=== PATIENT | male | born 1975 | race Hispanic/Latino ===

== ENCOUNTER 2019-08-02 06:37 | Inpatient (IN) | payer BC ==
[~2019-08-02] VITALS: Ht 170.2 cm; Wt 82.6 kg
[~2019-08-02 06:37] MED LIST changes: -XARELTO20 MG PO
--- OUTSIDE RECORDS SUMMARY | 2019-08-02 06:40 | XMS REPORT | Summary of Care ---
Author Organization Unknown Address Unknown Phone Unavailable Encounter HQ Nancy(BIJAN) [phone] Date(s): 03/11/14 - 03/11/[address] Discharge Diagnosis: chest pain Discharge Disposition: Home Physician Attending: Mamadou Amezcua MD Reason for Visit CHEST PAIN Vital Signs Most recent to 1 2 oldest [Reference Range]: Height 172.72 cm (03/11/14 2:28 PM) Temperature Oral 97.7 DegF [96.4-99.1 DegF] (03/11/14 2:28 PM) Systolic Blood 124 mmHg 137 mmHg Pressure [90-140 (03/11/14 3:07 PM) (03/11/14 2:28 PM) mmHg] Diastolic Blood 78 mmHg 84 mmHg Pressure [60-90 (03/11/14 3:07 PM) (03/11/14 2:28 PM) mmHg] Respiratory Rate 20 BRMIN 18 BRMIN [14-20 BRMIN] (03/11/14 3:07 PM) (03/11/14 2:28 PM) Peripheral Pulse 75 bpm 62 bpm Rate [60-100 bpm] (03/11/14 3:07 PM) (03/11/14 2:28 PM) Weight 86.364 kg (03/11/14 2:28 PM) Body Mass Index 28.95 m2 (03/11/14 2:28 PM) Problem List Condition Effective Dates Status Health Status Informant Hiatal Resolved hernia(Confirmed) HTN - Resolved Hypertension(Confirm ed) Morbid Resolved obesity(Confirmed) CAMILA - Obstructive Resolved sleep apnea(Confirmed) Osteoarthritis(Confi Resolved rmed) Reflux(Confirmed) Resolved Allergies, Adverse Reactions, Alerts Substance Reaction Severity Status NKDA Active Medications aspirin 81 mg tablet, chewable 81 mg, 1 tab, Route: PO, Drug form: CHEWTAB, ONCE, Dosing Weight 86.364, kg, Reina ority: STAT, Start date: 03/11/14 15:07:00, Stop date: 03/11/14 15:07:00 Notes: Take with food. Start Date: 03/11/14 Stop Date: 03/11/14 Status: Completed nitroglycerin 0.4 mg sublingual tablet 0.4 mg=1 tab, SL, Q5Min, Chest pain, # 100 tab, 0 Refill(s) Start Date: 03/11/14 Status: Ordered Saline Flush 0.9% 5 ml, Route: IVP, Drug Form: INJ, Dosing Weight 86.364, kg, PRN, PRN Line Flush, Start date: 03/11/14 15:07:00, Duration: 30 day, Stop date: 04/10/14 15:06:00 Notes: (Same as: BD Posiflush) Start Date: 03/11/14 Stop Date: 03/11/14 Status: Discontinued Results ELECTROLYTES Most recent to 1 oldest [Reference Range]: Sodium Lvl [135-145 142 mEq/L mEq/L] (03/11/14 2:23 PM) Potassium Lvl 4.0 mEq/L [3.5-5.1 mEq/L] (03/11/14 2:23 PM) Chloride Lvl [95-109 109 mEq/L mEq/L] (03/11/14 2:23 PM) CO2 [24-32 mEq/L] 30 mEq/L (03/11/14 2:23 PM) AGAP [10.0-20.0 7.0 mEq/L mEq/L] *LOW* (03/11/14 2:23 PM) CHEM PANEL Most recent to 1 oldest [Reference Range]: Creatinine Lvl 0.9 mg/dL [0.5-1.4 mg/dL] (03/11/14 2:23 PM) eGFR 106 mL/min/1.73m2 1 *NA* (03/11/14 2:23 PM) BUN [7-22 mg/dL] 8 mg/dL (03/11/14 2:23 PM) Glucose Lvl [70-99 115 mg/dL 2 mg/dL] *HI* (03/11/14 2:23 PM) Calcium Lvl 8.5 mg/dL [8.5-10.5 mg/dL] (03/11/14 2:23 PM) 1Result Comment: The eGFR is calculated using the CKD-EPI formula. In most young, healthy individuals the eGFR will be >90 mL/min/1.73m2. The eGFR declines with age. An eGFR of 60-89 may be normal in some populations, particularly the elderly, for whom the CKD-EPI formula has not been extensively validated. Use of the eGFR is not recommended in the following populations: Individuals with unstable creatinine concentrations, including patients and those with serious co-morbid conditions. Patients with extremes in muscle mass or diet. The data above are obtained from the National Kidney Disease Education Program ( NKDEP) which additionally recommends that when the eGFR is used in patients with extremes of body mass index for purposes of drug dosing, the eGFR should be mul tiplied by the estimated BMI. 2Interpretive Data: Adult reference range values reflect the clinical guidelines of the [place] [employer]. CARDIAC ENZYMES Most recent to 1 oldest [Reference Range]: Total CK [12-191 108 unit/L unit/L] (03/11/14 2:23 PM) CK MB [0.5-3.6 0.8 ng/mL ng/mL] (03/11/14 2:23 PM) CK MB Index 0.7 [0.0-2.5] (03/11/14 2:23 PM) Troponin-I <0.015 ng/mL [0.00-0.40 ng/mL] (03/11/14 2:23 PM) HEMATOLOGY Most recent to 1 oldest [Reference Range]: WBC [3.7-10.4 K/CMM] 7.5 K/CMM (03/11/14 2:23 PM) RBC [4.70-6.10 4.14 M/CMM M/CMM] *LOW* (03/11/14 2:23 PM) Hgb [14.0-18.0 g/dL] 13.4 g/dL *LOW* (03/11/14 2:23 PM) Hct [42.0-54.0 %] 39.1 % *LOW* (03/11/14 2:23 PM) MCV [80.0-94.0 fL] 94.4 fL *HI* (03/11/14 2:23 PM) MCH [27.0-31.0 pg] 32.3 pg *HI* (03/11/14 2:23 PM) MCHC [32.0-36.0 34.2 g/dL g/dL] (03/11/14 2:23 PM) RDW [11.5-14.5 %] 14.1 % (03/11/14 2:23 PM) Platelet [133-450 297 K/CMM K/CMM] (03/11/14 2:23 PM) MPV [7.4-10.4 fL] 8.3 fL (03/11/14 2:23 PM) Segs [45.0-75.0 %] 54.9 % (03/11/14 2:23 PM) Lymphocytes 37.4 % [20.0-40.0 %] (03/11/14 2:23 PM) Monocytes [2.0-12.0 5.7 % %] (03/11/14 2:23 PM) Eosinophils [0.0-4.0 0.6 % %] (03/11/14 2:23 PM) Basophils [0.0-1.0 1.4 % %] *HI* (03/11/14 2:23 PM) Segs-Bands # 4.1 K/CMM [1.5-8.1 K/CMM] (03/11/14 2:23 PM) Lymphocytes # 2.8 K/CMM [1.0-5.5 K/CMM] (03/11/14 2:23 PM) Monocytes # [0.0-0.8 0.4 K/CMM K/CMM] (03/11/14 2:23 PM) Eosinophils # 0.0 K/CMM [0.0-0.5 K/CMM] (03/11/14 2:23 PM) Basophils # [0.0-0.2 0.1 K/CMM K/CMM] (03/11/14 2:23 PM) Medications Administered During Your Visit No data available for this section Immunizations No data available for this section Social History Social History Type Response Smoking Status Former smoker, Type: Cigarettes, Exposure to Tobacco Smoke None, Cigarette Smoking Last 365 Days No, Reg Smoking Cessation Counseling No
--- OUTSIDE RECORDS SUMMARY | 2019-08-02 06:40 | XMS REPORT | CCD ---
Author Author Auto Generated Organization [facility] Address Unknown Phone Unavailable Care Team Providers Care Automatic Blocker Name Role Phone Darren Don RP Allergies, Adverse Reactions, Alerts Substance Reaction Status NKDA Active Problem List Condition Effective Dates Status Hiatal hernia Resolved HTN - Hypertension Resolved Morbid obesity Resolved CAMILA - Obstructive sleep apnea Resolved Osteoarthritis Resolved Reflux Resolved Medications Medication Instructions Start Date End Date Status acetaminophen-hydroc 15 mL, Route: PO, Dosing Weight 10/21/2013 10/21/2013 Discontinued odone 300 mg-10 116.818, kg, ONCE, Start date: mg/15 mL oral liquid 10/21/13 11:11:00, Stop date: 10/21/13 11:11:00 docusate sodium 150 100 mg=10 ml, PO, Daily, # 240 ml, 10/23/2013 Ordered mg/15 mL oral liquid 0 Refill(s) Protonix 40 mg, Route: IVP, Drug form: INJ, 10/21/2013 10/23/2013 Discontinued Before Dinner, Start date: 10/21/13 16:30:00, Duration: 30 day, Stop date: 11/19/13 16:30:00For IV push reconstitute with 10 ml 0.9% sodium chloride and push over 2 minutes. (Same as: Protonix) scopolamine 1 patch, Route: TOP, Drug form: 10/21/2013 10/21/2013 Completed ERFILM, PRE OP, Priority: NOW, Start date: 10/21/13 8:46:00, Duration: 1 doses or times, Stop date: 10/22/13 0:00:00Change patch every 72 hours (Same as: Transderm-Scop) hydromorphone 0.5 mg, Route: IVP, Q5Min, Dosing 10/21/2013 10/21/2013 Discontinued Weight 116.818, kg, PRN Pain Score 7-10, Start date: 10/21/13 11:11:00, Duration: 4 doses or times, Stop date: Limited # of times flumazenil 0.2 mg, Route: IVP, PRN, Dosing 10/21/2013 10/21/2013 Discontinued Weight 116.818, kg, PRN Benzodiazepine Reversal, Initial dose, Start date: 10/21/13 11:11:00, Duration: 30 day, Stop date: 11/20/13 11:10:00 metoprolol 1 mg, Route: IVP, Q5Min, Dosing 10/21/2013 10/21/2013 Discontinued Weight 116.818, kg, PRN Other -See Comment, Start date: 10/21/13 11:11:00, Duration: 5 doses or times, Stop date: Limited # of times labetalol 10 mg, Route: IVP, Q5Min, Dosing 10/21/2013 10/21/2013 Discontinued Weight 116.818, kg, PRN Elevated BP, Start date: 10/21/13 11:11:00, Duration: 5 doses or times, Stop date: Limited # of times naloxone 0.04 mg, Route: IVP, Q2MIN, Dosing 10/21/2013 10/21/2013 Discontinued Weight 116.818, kg, PRN Narcotic Reversal, Start date: 10/21/13 11:11:00, Duration: 8 doses or times, Stop date: Limited # of times promethazine 6.25 mg, Route: IVPB, ONCE, Dosing 10/21/2013 10/21/2013 Discontinued Weight 116.818, kg, PRN Nausea & Vomiting, Start date: 10/21/13 11:11:00 OXYcodone 5 mg/5 mL 5 mg, Route: NG, Q4H, Dosing Weight 10/21/2013 10/21/2013 Discontinued oral solution 116.818, kg, PRN Pain Score 4-6, Start date: 10/21/13 11:11:00, Duration: 30 day, Stop date: 11/20/13 11:10:00 ondansetron 4 mg, Route: IVP, ONCE, Dosing 10/21/2013 10/21/2013 Discontinued Weight 116.818, kg, PRN Nausea & Vomiting, Start date: 10/21/13 11:11:00 Fish Oil 1000 mg 0 Refill(s) 10/16/2013 10/23/2013 Discontinued oral capsule acetaminophen-hydroc 15 ml, PO, Q4H, Pain, # 420 mL, 0 10/23/2013 Ordered odone 325 mg-7.5 Refill(s) mg/15 mL oral solution ketorolac 30 mg/mL 30 mg, 1 mL, Route: IV, Drug form: 10/21/2013 10/23/2013 Discontinued injectable solution INJ, Q6H, Dosing Weight 116.818, kg, Start date: 10/21/13 18:00:00, Duration: 4 day, Stop date: 10/25/13 12:00:00(Same as:Toradol) IV bolus must be given >15 seconds. Give IM administration slowly and deeply into the muscle. Not for use > 4 days calcium-vitamin D 1 tab, PO, TID, # 90 tab, 0 10/16/2013 Ordered 250 mg-125 units Refill(s) oral tablet acetaminophen-hydroc 15 mL, Route: PO, Drug Form: SOLN, 10/22/2013 10/23/2013 Discontinued odone 300 mg-10 Dosing Weight 116.818, kg, Q4H, PRN mg/15 mL oral liquid Pain, Start date: 10/22/13 9:32:00, Duration: 30 day, Stop date: 11/21/13 9:31:00Do not exceed 4gm/day of acetaminophen. (Same as: Zolvit) Ofirmev 1,000 mg, 100 mL, Route: IV, Drug 10/21/2013 10/22/2013 Discontinued form: INJ, Q6H, Start date: 10/21/13 18:00:00, Duration: 48 hr, Stop date: 10/25/13 12:00:00Infuse over 15 minutes Do not exceed 4gm/day of acetaminophen Vitamin B12 100 mcg 100 microgram=1 tab, PO, Daily, # 10/16/2013 Ordered oral tablet 90 tab, 0 Refill(s) metoprolol tartrate 100 mg=1 tab, PO, BID, # 180 tab, 0 10/16/2013 10/23/2013 Discontinued 100 mg oral tablet Refill(s) Mefoxin 2 gm, Route: IVPB, Drug form: INJ, 10/21/2013 10/21/2013 Completed PRE OP, Priority: NOW, Start date: 10/21/13 8:45:00, Duration: 1 doses or times, Stop date: 10/22/13 0:00:00(Same As: Mefoxin) Dilaudid 0.2 mg, 0.1 mL, Route: IV, Drug 10/21/2013 10/22/2013 Discontinued form: INJ, Q4H, PRN Pain, Start date: 10/21/13 15:53:00, Duration: 30 day, Stop date: 11/20/13 15:52:00Same as: Dilaudid bupivacaine liposome 20 mL, Route: InFILtration(local), 10/21/2013 10/21/2013 Ordered Drug Form: INJ, ONCE, Start date: 10/21/13 10:10:00, Stop date: 10/21/13 10:10:00(Same as: Exparel) NOT FOR IV use Postoperative analgesia: Infiltration (local): Dose is based on surgical site and volume required to cover the area (in general, the maximum total dose is 266 mg).Bunionectomy: 7 mL into the tissues surrounding the osteotomy and 1 mL into the subcutaneous tissue of the surgical site (total dose=8 mL [106 mg])Hemorrhoidectomy: 30 mL (20 mL vial diluted with 10 mL NS) divided and administered as 6 injections of 5 mL each (total dose=30 mL [266 mg]) Lactated Ringers 1,000 mL, Rate: 100 ml/hr, Infuse 10/21/2013 10/23/2013 Discontinued Injection IV 1,000 over: 10 hr, Route: IV, Dosing mL Weight 116.818 kg, Total Volume: 1,000, Start date: 10/21/13 15:42:00, Stop date: 11/20/13 15:41:00 Zofran 4 mg, 2 mL, Route: IVP, Drug form: 10/21/2013 10/23/2013 Discontinued INJ, Q6H, PRN Nausea & Vomiting, Start date: 10/21/13 15:51:00, Duration: 30 day, Stop date: 11/20/13 15:50:00(Same as: Zofran) heparin 5,000 unit, 1 mL, Route: SUB-Q, 10/22/2013 10/23/2013 Discontinued Drug form: INJ, Q8H, Start date: 10/22/13 8:00:00, Duration: 30 day, Stop date: 11/21/13 0:00:00porcine heparin Mefoxin 2 gm, Route: IVPB, Drug form: INJ, 10/21/2013 10/22/2013 Completed ABXQ8H, Start date: 10/21/13 18:30:00, Duration: 2 doses or times, Stop date: 10/22/13 2:30:00(Same As: Mefoxin) heparin 5,000 unit, 1 mL, Route: SUB-Q, 10/21/2013 10/21/2013 Completed Drug form: INJ, PRE OP, Priority: NOW, Start date: 10/21/13 8:47:00, Duration: 1 doses or times, Stop date: 10/22/13 0:00:00porcine heparin Vital Signs Most recent to oldest [Reference Range]: 1 2 3 Height 170.18 cm (10/21/2013 17:42:00) 170.18 cm (10/15/2013 15:42:00) Temperature Oral [96.4-99.1 DegF] 98.7 DegF (10/23/2013 12:24:00) 98.7 DegF (10/23/2013 08:53:00) 98.1 DegF (10/22/2013 22:50:00) Systolic Blood Pressure [90-140 mmHg] 149 mmHg *HI* (10/23/2013 12:24:00) 138 mmHg (10/23/2013 08:53:00) 139 mmHg (10/22/2013 22:50:00) Diastolic Blood Pressure [60-90 mmHg] 90 mmHg (10/23/2013 12:24:00) 89 mmHg (10/23/2013 08:53:00) 89 mmHg (10/22/2013 22:50:00) Respiratory Rate [14-20 BRMIN] 18 BRMIN (10/23/2013 12:24:00) 18 BRMIN (10/23/2013 08:53:00) 18 BRMIN (10/22/2013 22:50:00) Peripheral Pulse Rate [60-100 bpm] 91 bpm (10/23/2013 12:24:00) 89 bpm (10/23/2013 08:53:00) 70 bpm (10/22/2013 22:50:00) Weight 116.818 kg (10/21/2013 17:42:00) 116.818 kg (10/21/2013 08:02:00) Results URINALYSIS Most recent to oldest [Reference Range]: 1 2 3 UA Turbidity [Clear] Clear (10/15/2013 14:00:00) UA Color [Yellow] Yellow *NA* (10/15/2013 14:00:00) UA pH [5.0-8.0] 6.0 (10/15/2013 14:00:00) UA Spec Grav [<=1.030] 1.016 (10/15/2013 14:00:00) UA Glucose [Negative mg/dL] Negative mg/dL *NA* (10/15/2013 14:00:00) UA Blood [Negative] Negative (10/15/2013 14:00:00) UA Ketones [Negative mg/dL] Negative mg/dL *NA* (10/15/2013 14:00:00) UA Protein [Negative mg/dL] 10 mg/dL *ABN* (10/15/2013 14:00:00) UA Urobilinogen [0.1-1.0 mg/dL] <=1.0 mg/dL *NA* (10/15/2013 14:00:00) UA Bili [Negative] Negative *NA* (10/15/2013 14:00:00) UA Leuk Est [Negative] Negative (10/15/2013 14:00:00) UA Nitrite [Negative] Negative (10/15/2013 14:00:00) UA Sq Epi None Seen *NA* (10/15/2013 14:00:00) UA Mucus [None Seen /LPF] Moderate /LPF *ABN* (10/15/2013 14:00:00) BLOOD BANK RESULTS Most recent to oldest [Reference Range]: 1 2 3 ABO/Rh O POS *Unknown* (10/21/2013 08:35:00) Antibody Scrn Negative (10/21/2013 08:35:00) CHEMISTRY Most recent to oldest [Reference Range]: 1 2 3 Sodium Lvl [135-145 mEq/L] 138 mEq/L (10/23/2013 03:00:00) 138 mEq/L (10/22/2013 03:00:00) 139 mEq/L (10/15/2013 14:00:00) Potassium Lvl [3.5-5.1 mEq/L] 3.9 mEq/L (10/23/2013 03:00:00) 4.3 mEq/L (10/22/2013 03:00:00) 4.4 mEq/L (10/15/2013 14:00:00) Chloride Lvl [95-109 mEq/L] 103 mEq/L (10/23/2013 03:00:00) 103 mEq/L (10/22/2013 03:00:00) 103 mEq/L (10/15/2013 14:00:00) CO2 [24-32 mEq/L] 22 mEq/L *LOW* (10/23/2013 03:00:00) 24 mEq/L (10/22/2013 03:00:00) 26 mEq/L (10/15/2013 14:00:00) AGAP [10.0-20.0 mEq/L] 16.9 mEq/L (10/23/2013 03:00:00) 15.3 mEq/L (10/22/2013 03:00:00) 14.4 mEq/L (10/15/2013 14:00:00) Creatinine Lvl [0.5-1.4 mg/dL] 0.9 mg/dL (10/23/2013 03:00:00) 0.9 mg/dL (10/22/2013 03:00:00) 1.0 mg/dL (10/15/2013 14:00:00) eGFR 107 mL/min/1.73m2 1 *NA* (10/23/2013 03:00:00) 107 mL/min/1.73m2 2 *NA* (10/22/2013 03:00:00) 94 mL/min/1.73m2 3 *NA* (10/15/2013 14:00:00) BUN [7-22 mg/dL] 9 mg/dL (10/23/2013 03:00:00) 10 mg/dL (10/22/2013 03:00:00) 10 mg/dL (10/15/2013 14:00:00) B/C Ratio [6-25] 10 (10/15/2013 14:00:00) Glucose Lvl [70-99 mg/dL] 69 mg/dL 4 *LOW* (10/23/2013 03:00:00) 93 mg/dL 5 (10/22/2013 03:00:00) 89 mg/dL 6 (10/15/2013 14:00:00) Total Protein [6.4-8.4 g/dL] 7.7 g/dL (10/15/2013 14:00:00) Albumin Lvl [3.5-5.0 g/dL] 4.0 g/dL (10/15/2013 14:00:00) Globulin [2.0-4.0 g/dL] 3.7 g/dL (10/15/2013 14:00:00) A/G Ratio [0.7-1.6] 1.1 (10/15/2013 14:00:00) Calcium Lvl [8.5-10.5 mg/dL] 8.3 mg/dL *LOW* (10/23/2013 03:00:00) 8.5 mg/dL (10/22/2013 03:00:00) 9.1 mg/dL (10/15/2013 14:00:00) Phosphorus [2.5-4.5 mg/dL] 2.3 mg/dL *LOW* (10/23/2013 03:00:00) 4.3 mg/dL (10/22/2013 03:00:00) Magnesium Lvl [1.8-2.4 mg/dL] 1.9 mg/dL (10/23/2013 03:00:00) 2.0 mg/dL (10/22/2013 03:00:00) ALT [0-65 unit/L] 150 unit/L *HI* (10/15/2013 14:00:00) AST [0-37 unit/L] 71 unit/L *HI* (10/15/2013 14:00:00) Alk Phos [39-136 unit/L] 97 unit/L (10/15/2013 14:00:00) Bili Total [0.2-1.3 mg/dL] 0.5 mg/dL (10/15/2013 14:00:00) 1Result Comment: The eGFR is calculated using [...] be mul tiplied by the estimated BMI. 2Result Comment: The eGFR is calculated using the [...] be mul tiplied by the estimated BMI. 3Result Comment: The eGFR is calculated using the [...] be mul tiplied by the estimated BMI. 4Interpretive Data: Adult reference range values reflect the clinical guidelines of the [place] [employer]. 5Interpretive Data: Adult reference range values reflect the clinical guidelines of the [place] [employer]. 6Interpretive Data: Adult reference range values reflect the clinical guidelines of the [place] [employer]. HEMATOLOGY Most recent to oldest [Reference Range]: 1 2 3 WBC [3.7-10.4 K/CMM] 8.3 K/CMM (10/23/2013 03:00:00) 9.9 K/CMM (10/22/2013 03:00:00) 7.9 K/CMM (10/15/2013 14:00:00) RBC [4.70-6.10 M/CMM] 4.20 M/CMM *LOW* (10/23/2013 03:00:00) 4.07 M/CMM *LOW* (10/22/2013 03:00:00) 4.37 M/CMM *LOW* (10/15/2013 14:00:00) Hgb [14.0-18.0 g/dL] 13.2 g/dL *LOW* (10/23/2013 03:00:00) 13.3 g/dL *LOW* (10/22/2013 03:00:00) 14.1 g/dL (10/15/2013 14:00:00) Hct [42.0-54.0 %] 39.7 % *LOW* (10/23/2013 03:00:00) 38.2 % *LOW* (10/22/2013 03:00:00) 40.8 % *LOW* (10/15/2013 14:00:00) MCV [80.0-94.0 fL] 94.5 fL *HI* (10/23/2013 03:00:00) 93.9 fL (10/22/2013 03:00:00) 93.3 fL (10/15/2013 14:00:00) MCH [27.0-31.0 pg] 31.3 pg *HI* (10/23/2013 03:00:00) 32.8 pg *HI* (10/22/2013 03:00:00) 32.2 pg *HI* (10/15/2013 14:00:00) MCHC [32.0-36.0 g/dL] 33.1 g/dL (10/23/2013 03:00:00) 35.0 g/dL (10/22/2013 03:00:00) 34.5 g/dL (10/15/2013 14:00:00) RDW [11.5-14.5 %] 12.5 % (10/23/2013 03:00:00) 12.8 % (10/22/2013 03:00:00) 13.0 % (10/15/2013 14:00:00) Platelet [133-450 K/CMM] 330 K/CMM (10/23/2013 03:00:00) 345 K/CMM (10/22/2013 03:00:00) 312 K/CMM (10/15/2013 14:00:00) MPV [7.4-10.4 fL] 8.4 fL (10/23/2013 03:00:00) 8.4 fL (10/22/2013 03:00:00) 8.3 fL (10/15/2013 14:00:00) Segs [45.0-75.0 %] 55.4 % (10/23/2013 03:00:00) 64.6 % (10/22/2013 03:00:00) 47.6 % (10/15/2013 14:00:00) Lymphocytes [20.0-40.0 %] 33.3 % (10/23/2013 03:00:00) 26.1 % (10/22/2013 03:00:00) 38.6 % (10/15/2013 14:00:00) Monocytes [2.0-12.0 %] 10.2 % (10/23/2013 03:00:00) 9.0 % (10/22/2013 03:00:00) 11.3 % (10/15/2013 14:00:00) Eosinophils [0.0-4.0 %] 0.4 % (10/23/2013 03:00:00) 0.1 % (10/22/2013 03:00:00) 1.7 % (10/15/2013 14:00:00) Basophils [0.0-1.0 %] 0.7 % (10/23/2013 03:00:00) 0.2 % (10/22/2013 03:00:00) 0.8 % (10/15/2013 14:00:00) Segs-Bands # [1.5-8.1 K/CMM] 4.6 K/CMM (10/23/2013 03:00:00) 6.4 K/CMM (10/22/2013 03:00:00) 3.8 K/CMM (10/15/2013 14:00:00) Lymphocytes # [1.0-5.5 K/CMM] 2.8 K/CMM (10/23/2013 03:00:00) 2.6 K/CMM (10/22/2013 03:00:00) 3.1 K/CMM (10/15/2013 14:00:00) Monocytes # [0.0-0.8 K/CMM] 0.8 K/CMM (10/23/2013 03:00:00) 0.9 K/CMM *HI* (10/22/2013 03:00:00) 0.9 K/CMM *HI* (10/15/2013 14:00:00) Eosinophils # [0.0-0.5 K/CMM] 0.1 K/CMM (10/15/2013 14:00:00) Basophils # [0.0-0.2 K/CMM] 0.1 K/CMM (10/23/2013 03:00:00) 0.1 K/CMM (10/15/2013 14:00:00) Procedures Procedures Date Related Diagnosis Arthroscopy of knee1 Hernia repair2 [id number]
--- OUTSIDE RECORDS SUMMARY | 2019-08-02 06:40 | XMS REPORT | Summary of Care ---
Author Organization Unknown Address Unknown Phone Unavailable Encounter HQ Maribel_dorina(FIN) [id number] Date(s): 10/28/14 - 10/28/14 [facility] Outpatient Imaging - [place] Discharge Disposition: Home Physician Attending: Darren Don MD Reason for Visit 263.8 - PROTEIN-JIMMY MAL Problem List Condition Effective Dates Status Health Status Informant Hiatal Resolved hernia(Confirmed) HTN - Resolved Hypertension(Confirm ed) Morbid Resolved obesity(Confirmed) CAMILA - Obstructive Resolved sleep apnea(Confirmed) Osteoarthritis(Confi Resolved rmed) Reflux(Confirmed) Resolved Allergies, Adverse Reactions, Alerts Substance Reaction Severity Status NKDA Active Medications No data available for this section Medications Administered During Your Visit No data available for this section Immunizations No data available for this section Social History Social History Type Response Smoking Status Former smoker, Type: Cigarettes, Exposure to Tobacco Smoke None, Cigarette Smoking Last 365 Days No, Reg Smoking Cessation Counseling No
--- OUTSIDE RECORDS SUMMARY | 2019-08-02 06:40 | XMS REPORT | Summary of Care ---
Author Organization Unknown Address Unknown Phone Unavailable Encounter HQ Encntr_dorina(FIN) [id number] Date(s): 05/14/14 - 05/14/14 [facility] Outpatient Imaging - [address] [address] [place] Discharge Disposition: Home Physician Attending: Darren Don MD Reason for Visit 530.11 - REFLUX ESOPHAGI Problem List Condition Effective Dates Status Health [...]
--- OUTSIDE RECORDS SUMMARY | 2019-08-02 06:40 | XMS REPORT | Summary of Care ---
Author Author Dilip Rodriguez Organization Unknown Address Unknown Phone Unavailable Care Team Providers Care Care Worker Name Role Phone GAMAL POMPA N.P. Unavailable Unavailable KAROL Tang, ANIL Unavailable Unavailable ZHANNA Mir.TONIO Leslie Unavailable Unavailable Dilip Rodriguez Unavailable Unavailable BRENTON ZARATE RI, LASHONDA Ramirez Unavailable Unavailable BRENTON Pratt, LASHONDA Unavailable Unavailable Unavailable Unavailable Functional Status Name Dates Details Functional status health issues are not documented Status: Name Dates Details Cognitive status health issues are not documented Status: Problems Name Dates Details Need for influenza vaccination (V04.81, Z23) Status: Active Primary dysthymia (300.4, F34.1) Status: Active Dyslipidemia (272.4, E78.5) Status: Active Conjunctivitis, bacterial (372.39, H10.9) Status: Active Puncture wound, hand (882.0, S61.439A) Status: Active Cellulitis of hand (682.4, L03.119) Status: Active GERD without esophagitis (530.81, K21.9) Status: Active Insomnia (780.52, G47.00) Status: Active Vitamin D deficiency (268.9, E55.9) Status: Active Plantar fasciitis of left foot (728.71, M72.2) Status: Active BMI 29.0-29.9,adult (V85.25, Z68.29) Status: Active Medications Name Dates Details Vitamin B Complex Oral Tablet TAKE 1 TABLET DAILY. ANIL ROBERSON N.P. * Start : 21-Sep-2016 Active Centrum Ultra Mens Oral Tablet TAKE 1 TABLET DAILY. * Refills: 0 KAROL Mir.ANIL Leslie * Start : 21-Sep-2016 Active Pantoprazole Sodium 40 MG Oral Tablet Delayed Release TAKE 1 TABLET BY MOUTH DAILY 1 HOUR BEFORE A MEAL * Quantity: 90 Refills: 1 ZHANNA Mir.Melba., TONIO * Start : 21-Sep-2016 Active Vitamin D (Ergocalciferol) 89048 UNIT Oral Capsule Take 1 capsule two times per week * Quantity: 8 Refills: 3 ALETHA Mir.Anuj, GAMAL * Start : 10-Apr-2018 Active Diclofenac-Misoprostol 75-0.2 MG Oral Tablet Delayed Release TAKE 1 TABLET DAILY in am * Quantity: 14 Refills: 0 ZHANNA N.PWander, TONIO * Start : 13-Aug-2018 Active PredniSONE 10 MG Oral Tablet 1 tab po daily x7 days * Quantity: 7 Refills: 0 ZHANNA N.P., TONIO * Start : 15-Aug-2018 Active Allergies and Adverse Reactions Name Dates Details No Known Drug Allergies (Allergy) Status: Active Procedures Procedure Dates Details Procedures not documented Immunization Name Dates Details Fluzone Quadrivalent 0.5 ML Intramuscular Suspension Lot #: [id number] on: 24-Aug-2016 Td (adult), unspecified formulation Comments: Approx [id number] Family History Name Dates Details Family history of diabetes mellitus (V18.0, Z83.3) Status: Active Family history of hypertension (V17.49, Z82.49) Status: Active Social History Name Dates Details - Status: Name Dates Details Former smoker Vital Signs Date Test Result Details [id number] BP Systolic 106 mm[Hg] Status: Comments: Location: LUE; Position: Sitting BP Diastolic 64 mm[Hg] Status: Comments: Location: E; Position: Sitting Height 67 in Status: Weight 188 lb Status: Body Mass Index Calculated 29.45 kg/m2 Status: Body Surface Area Calculated 1.97 m2 Status: Temperature 98.6 f Status: Comments: Method: Temporal Respiration Rate 16 /min Status: Physical Findings 0 Status: Comments: Alcohol Screen - How many times in the past yr have you had 5 (for M) or 4 (for F) or 4 (for all > 65yrs) or more drinks in a day? Heart Rate 71 /min Status: Results Date Description Value Details [id number] XRAY Foot series 40397 Foot series SEE NOTES Comments: EXAM: XR LEFT FOOT 3 VIEWSDATE: 08/13/2018 11:46 AM CDTINDICATION: - M72.2 Plantar fascial fibromatosisCOMPARISON: NoneTECHNIQUE: AP, lateral and oblique radiographs of the footFINDINGS: No acute fracture or malalignment is identified. Tiny Achillesenthesophyte visualized. No plantar enthesopathy. No radiopaque lesions ormasses seen along the plantar aspect of the foot. No soft tissue abnormality is identified.IMPRESSION: No significant radiographic abnormality.--Read by: Case Obandoictated Date/time: 08/13/18 13:25Electronically Signed by: Case Obando MD 08/13/1813:29FINAL REPORT Plan of Care Name Dates Details Planned Observations Planned Goals not documented Instructions Name Dates Details Instructions not documented Encounters Appointment; ANIL ROBERSON NP Encounter Diagnosis: Problem not documented On: 24-Aug-2016 14:00 Appointment; ANIL ROBERSON NP Encounter Diagnosis: Problem not documented On: 21-Sep-2016 13:15 Appointment; TONIO CHAO NP Encounter Diagnosis: Problem not documented On: 13-Mar-2017 9:45 Appointment; BABAR KWON M.D. Encounter Diagnosis: Problem not documented On: 24-May-2017 9:30 Appointment; TONIO CHAO NP Encounter Diagnosis: Problem not documented On: 03-Oct-2017 13:30 Appointment; MIKE FINNEGAN M.D. Encounter Diagnosis: Problem not documented On: 03-Apr-2018 10:45 Appointment; TONIO CHAO NP Encounter Diagnosis: Problem not documented On: 13-Aug-2018 9:45
--- OUTSIDE RECORDS SUMMARY | 2019-08-02 06:40 | XMS REPORT | Continuity of Care Document ---
Author Author Swifto Address Unknown Phone Unavailable Care Team Providers Care Application Support Consultant Name Role Phone [employer] Unavailable Unavailable Problems Problem Status Onset Date Classification Date Reported Comments Source Discharge Diagnosis: chest pain 03/11/2014 03/14/2014 [facility] CHEST PAIN Active 03/11/2014 [facility] MORBID OBESITY Active 10/06/2013 [facility] Hiatal hernia (disorder) Resolved Problem 10/31/2014 [facility], OP[facility] [place],[facility], [facility] Hypertensive disorder, systemic arterial (disorder) Resolved Problem 10/31/2014 [facility], [facility] [place], [facility] Morbid obesity (disorder) Resolved Problem 10/31/2014 [facility], [facility] [place],[facility], [facility] Obstructive sleep apnea syndrome (disorder) Resolved Problem 10/31/2014 [facility], [facility] [place],[facility], [facility] Osteoarthritis (disorder) Resolved Problem 10/31/2014 [facility], [facility] [place],[facility], [facility] Reflux (finding) Resolved Problem 10/31/2014 [facility], [facility] [place],[facility], [facility] MORBID OBESITY Active [facility] Medications Medication Details Route Status Patient Instructions Ordering Provider Order Date Source Nitroglycerin 0.4 MG Sublingual Tablet 0.4 mg=1 tab, SL, Q5Min, Chest pain, # 100 tab, 0 Refill(s) Active 03/11/2014 [facility] Aspirin 81 MG Chewable Tablet 81 mg, 1 tab, Route: PO, Drug form: CHEWTAB, ONCE, Dosing Weight 86.364, kg, Priority: STAT, Start date: 03/11/14 15:07:00, Stop date: 03/11/14 15:07:00Notes: Take with food. Inactive 03/11/2014 [facility] Saline Flush 0.9% 5 ml, Route: IVP, Drug Form: INJ, Dosing Weight 86.364, kg, PRN, PRN Line Flush, Start date: 03/11/14 15:07:00, Duration: 30 day, Stop date: 04/10/14 15:06:00Notes: (Same as: BD Posiflush) Inactive 03/11/2014 [facility] docusate sodium 150 mg/15 mL oral liquid 100 mg=10 ml, PO, Daily, # 240 ml, 0 Refill(s) Active [facility] 10/23/2013 [facility] acetaminophen-hydrocodone 325 mg-7.5 mg/15 mL oral solution 15 ml, PO, Q4H, Pain, # 420 mL, 0 Refill(s) Active [facility] 10/23/2013 [facility] acetaminophen-hydrocodone 300 mg-10 mg/15 mL oral liquid 15 mL, Route: PO, Drug Form: SOLN, Dosing Weight 116.818, kg, Q4H, PRN Pain, Start date: 10/22/13 9:32:00, Duration: 30 day, Stop date: 11/21/13 9:31:00Do not exceed 4gm/day of acetaminophen. (Same as: Zolvit) No Longer Active [facility] 10/22/2013 [facility] heparin 5,000 unit, 1 mL, Route: SUB-Q, Drug form: INJ, Q8H, Start date: 10/22/13 8:00:00, Duration: 30 day, Stop date: 11/21/13 0:00:00porcine heparin No Longer Active [facility] 10/22/2013 [facility] Mefoxin 2 gm, Route: IVPB, Drug form: INJ, ABXQ8H, Start date: 10/21/13 18:30:00, Duration: 2 doses or times, Stop date: 10/22/13 2:30:00(Same As: Mefoxin) No Longer Active [facility] 10/22/2013 [facility] ketorolac 30 mg/mL injectable solution 30 mg, 1 mL, Route: IV, Drug form: INJ, Q6H, Dosing Weight 116.818, kg, Start date: 10/21/13 18:00:00, Duration: 4 day, Stop date: 10/25/13 12:00:00(Same as:Toradol) IV bolus must be given >15 seconds. Give IM administration slowly and deeply into the muscle. Not for use > 4 days No Longer Active [place] 10/22/2013 [facility] Ofirmev 1,000 mg, 100 mL, Route: IV, Drug form: INJ, Q6H, Start date: 10/21/13 18:00:00, Duration: 48 hr, Stop date: 10/25/13 12:00:00Infuse over 15 minutes Do not exceed 4gm/day of acetaminophen No Longer Active [facility] 10/22/2013 [facility] Protonix 40 mg, Route: IVP, Drug form: INJ, Before Dinner, Start date: 10/21/13 16:30:00, Duration: 30 day, Stop date: 11/19/13 16:30:00For IV push reconstitute with 10 ml 0.9% sodium chloride and push over 2 minutes. (Same as: Protonix) No Longer Active [facility] 10/21/2013 [facility] Dilaudid 0.2 mg, 0.1 mL, Route: IV, Drug form: INJ, Q4H, PRN Pain, Start date: 10/21/13 15:53:00, Duration: 30 day, Stop date: 11/20/13 15:52:00Same as: Dilaudid No Longer Active [facility] 10/21/2013 [facility] Zofran 4 mg, 2 mL, Route: IVP, Drug form: INJ, Q6H, PRN Nausea & Vomiting, Start date: 10/21/13 15:51:00, Duration: 30 day, Stop date: 11/20/13 15:50:00(Same as: Zofran) No Longer Active [facility] 10/21/2013 [facility] Lactated Ringers Injection IV 1,000 mL 1,000 mL, Rate: 100 ml/hr, Infuse over: 10 hr, Route: IV, Dosing Weight 116.818 kg, Total Volume: 1,000, Start date: 10/21/13 15:42:00, Stop date: 11/20/13 15:41:00 No Longer Active [facility] 10/21/2013 [facility] acetaminophen-hydrocodone 300 mg-10 mg/15 mL oral liquid 15 mL, Route: PO, Dosing Weight 116.818, kg, ONCE, Start date: 10/21/13 11:11:00, Stop date: 10/21/13 11:11:00 Inactive [place] 10/21/2013 [facility] hydromorphone 0.5 mg, Route: IVP, Q5Min, Dosing Weight 116.818, kg, PRN Pain Score 7-10, Start date: 10/21/13 11:11:00, Duration: 4 doses or times, Stop date: Limited # of times Inactive [place] 10/21/2013 [facility] flumazenil 0.2 mg, Route: IVP, PRN, Dosing Weight 116.818, kg, PRN Benzodiazepine Reversal, Initial dose, Start date: 10/21/13 11:11:00, Duration: 30 day, Stop date: 11/20/13 11:10:00 Inactive [place] 10/21/2013 [facility] metoprolol 1 mg, Route: IVP, Q5Min, Dosing Weight 116.818, kg, PRN Other -See Comment, Start date: 10/21/13 11:11:00, Duration: 5 doses or times, Stop date: Limited # of times Inactive [place] 10/21/2013 [facility] labetalol 10 mg, Route: IVP, Q5Min, Dosing Weight 116.818, kg, PRN Elevated BP, Start date: 10/21/13 11:11:00, Duration: 5 doses or times, Stop date: Limited # of times Inactive [place] 10/21/2013 [facility] naloxone 0.04 mg, Route: IVP, Q2MIN, Dosing Weight 116.818, kg, PRN Narcotic Reversal, Start date: 10/21/13 11:11:00, Duration: 8 doses or times, Stop date: Limited # of times Inactive [place] 10/21/2013 [facility] promethazine 6.25 mg, Route: IVPB, ONCE, Dosing Weight 116.818, kg, PRN Nausea & Vomiting, Start date: 10/21/13 11:11:00 Inactive [place] 10/21/2013 [facility] OXYcodone 5 mg/5 mL oral solution 5 mg, Route: NG, Q4H, Dosing Weight 116.818, kg, PRN Pain Score 4-6, Start date: 10/21/13 11:11:00, Duration: 30 day, Stop date: 11/20/13 11:10:00 Inactive [place] 10/21/2013 [facility] ondansetron 4 mg, Route: IVP, ONCE, Dosing Weight 116.818, kg, PRN Nausea & Vomiting, Start date: 10/21/13 11:11:00 Inactive [place] 10/21/2013 [facility] bupivacaine liposome 20 mL, Route: InFILtration(local), Drug Form: INJ, ONCE, Start date: 10/21/13 10:10:00, Stop date: 10/21/13 10:10:00(Same as: Exparel) NOT FOR IV use Postoperative analgesia: Infiltration (local): Dose is based on surgical site and volume required to cover the area (in general, the maximum total dose is 266 mg). Bunionectomy: 7 mL into the tissues surrounding the osteotomy and 1 mL into the subcutaneous tissue of the surgical site (total dose=8 mL [106 mg]) Hemorrhoidectomy: 30 mL (20 mL vial diluted with 10 mL NS) divided and administered as 6 injections of 5 mL each (total dose=30 mL [266 mg]) Inactive [place] 10/21/2013 [facility] heparin 5,000 unit, 1 mL, Route: SUB-Q, Drug form: INJ, PRE OP, Priority: NOW, Start date: 10/21/13 8:47:00, Duration: 1 doses or times, Stop date: 10/22/13 0:00:00porcine heparin Inactive [place] 10/21/2013 [facility] scopolamine 1 patch, Route: TOP, Drug form: ERFILM, PRE OP, Priority: NOW, Start date: 10/21/13 8:46:00, Duration: 1 doses or times, Stop date: 10/22/13 0:00:00Change patch every 72 hours (Same as: Transderm-S certified flex endoscope reprocessor) Inactive [place] 10/21/2013 [facility] Mefoxin 2 gm, Route: IVPB, Drug form: INJ, PRE OP, Priority: NOW, Start date: 10/21/13 8:45:00, Duration: 1 doses or times, Stop date: 10/22/13 0:00:00(Same As: Mefoxin) Inactive [place] 10/21/2013 [facility] Fish Oil 1000 mg oral capsule 0 Refill(s) No Longer Active 10/16/2013 [facility] calcium-vitamin D 250 mg-125 units oral tablet 1 tab, PO, TID, # 90 tab, 0 Refill(s) Active 10/16/2013 [facility] Vitamin B12 100 mcg oral tablet 100 microgram=1 tab, PO, Daily, # 90 tab, 0 Refill(s) Active 10/16/2013 [facility] metoprolol tartrate 100 mg oral tablet 100 mg=1 tab, PO, BID, # 180 tab, 0 Refill(s) No Longer Active 10/16/2013 [facility] Allergies, Adverse Reactions, Alerts No Known Medication Allergies Immunizations No Data Provided for This Section Results Order Name Results Value Reference Range Date Interpretation Comments Source CARDIAC ENZYMES CK MB 0.8 0.5 - 3.6 03/11/2014 [facility] CARDIAC ENZYMES Total CK 108 12 - 191 03/11/2014 [facility] CARDIAC ENZYMES Troponin-I <0.015 ng/mL 0.00 - 0.40 03/11/2014 [facility] CARDIAC ENZYMES CK-MB INDEX 0.7 0.0 - 2.5 03/11/2014 [facility] CHEM PANEL eGFR 106 03/11/2014 <sup>1</sup>Result Comment: The eGFR is calculated using the CKD-EPI formula. In most young, healthy individuals the eGFR will be >90 mL/min/1.73m2. The eGFR declines with age. An eGFR of 60-89 may be normal in some populations, particularly the elderly, for whom the CKD-EPI formula has not been extensively validated. Use of the eGFR is not recommended in the following populations:& lt;br/>
Individuals with unstable creatinine concentrations, including patients and those with serious co-morbid conditions.

Patients with extremes in muscle mass or diet.

The data above are obtained from the National Kidney Disease Education Program (NKDEP) which additionally recommends that when the eGFR is used in patients with extremes of body mass index for purposes of drug dosing, the eGFR should be multiplied by the estimated BMI. [facility] CHEM PANEL AGAP 7.0 10.0 - 20.0 03/11/2014 [facility] CHEM PANEL Calcium Lvl 8.5 8.5 - 10.5 03/11/2014 [facility] CHEM PANEL Chloride Lvl 109 95 - 109 03/11/2014 [facility] CHEM PANEL CO2 30 24 - 32 03/11/2014 [facility] CHEM PANEL Creatinine Lvl 0.9 0.5 - 1.4 03/11/2014 [facility] CHEM PANEL Sodium Lvl 142 135 - 145 03/11/2014 [facility] CHEM PANEL Potassium Lvl 4.0 3.5 - 5.1 03/11/2014 [facility] CHEM PANEL Glucose Lvl 115 70 - 99 03/11/2014 <sup>2</sup>Interpretive Data: Adult reference range values reflect the clinical guidelines
of the [place] [employer]. [facility] CHEM PANEL BUN 8 7 - 22 03/11/2014 [facility] HEMATOLOGY Platelet 297 133 - 450 03/11/2014 [facility] HEMATOLOGY MPV 8.3 7.4 - 10.4 03/11/2014 [facility] HEMATOLOGY Hct 39.1 42.0 - 54.0 03/11/2014 [facility] HEMATOLOGY MCV 94.4 80.0 - 94.0 03/11/2014 [facility] HEMATOLOGY MCH 32.3 27.0 - 31.0 03/11/2014 [facility] HEMATOLOGY Hgb 13.4 14.0 - 18.0 03/11/2014 [facility] HEMATOLOGY RBC 4.14 4.70 - 6.10 03/11/2014 [facility] HEMATOLOGY MCHC 34.2 32.0 - 36.0 03/11/2014 [facility] HEMATOLOGY RDW 14.1 11.5 - 14.5 03/11/2014 [facility] HEMATOLOGY WBC 7.5 3.7 - 10.4 03/11/2014 [facility] HEMATOLOGY Eosinophils # 0.0 0.0 - 0.5 03/11/2014 [facility] HEMATOLOGY Basophils # 0.1 0.0 - 0.2 03/11/2014 [facility] HEMATOLOGY Basophils 1.4 0.0 - 1.0 03/11/2014 [facility] HEMATOLOGY Monocytes # 0.4 0.0 - 0.8 03/11/2014 [facility] HEMATOLOGY Segs-Bands # 4.1 1.5 - 8.1 03/11/2014 [facility] HEMATOLOGY Monocytes 5.7 2.0 - 12.0 03/11/2014 [facility] HEMATOLOGY Eosinophils 0.6 0.0 - 4.0 03/11/2014 [facility] HEMATOLOGY Lymphocytes # 2.8 1.0 - 5.5 03/11/2014 [facility] HEMATOLOGY Segs 54.9 45.0 - 75.0 03/11/2014 [facility] HEMATOLOGY Lymphocytes 37.4 20.0 - 40.0 03/11/2014 [facility] CHEMISTRY Magnesium Lvl 1.9 1.8 - 2.4 10/23/2013 Normal [facility] CHEMISTRY Phosphorus 2.3 2.5 - 4.5 10/23/2013 LOW [facility] CHEMISTRY eGFR 107 10/23/2013 <sup>1</sup>Result Comment: The eGFR is calculated using the CKD-EPI formula. In most young, healthy individuals the eGFR will be >90 mL/min/1.73m2. The eGFR declines with age. An eGFR of 60-89 may be normal in some populations, particularly the elderly, for whom the CKD-EPI formula has not been extensively validated. Use of the eGFR is not recommended in the following populations:& lt;br/>
Individuals with unstable creatinine concentrations, including patients and those with serious co-morbid conditions.

Patients with extremes in muscle mass or diet.

The data above are obtained from the National Kidney Disease Education Program (NKDEP) which additionally recommends that when the eGFR is used in patients with extremes of body mass index for purposes of drug dosing, the eGFR should be multiplied by the estimated BMI. [facility] CHEMISTRY Calcium Lvl 8.3 8.5 - 10.5 10/23/2013 LOW [facility] CHEMISTRY CO2 22 24 - 32 10/23/2013 LOW [facility] CHEMISTRY Chloride Lvl 103 95 - 109 10/23/2013 Normal [facility] CHEMISTRY Potassium Lvl 3.9 3.5 - 5.1 10/23/2013 Normal [facility] CHEMISTRY Sodium Lvl 138 135 - 145 10/23/2013 Normal [facility] CHEMISTRY Creatinine Lvl 0.9 0.5 - 1.4 10/23/2013 Normal [facility] CHEMISTRY BUN 9 7 - 22 10/23/2013 Normal [facility] CHEMISTRY Glucose Lvl 69 70 - 99 10/23/2013 LOW <sup>4</sup>Interpretive Data: Adult reference range values reflect the clinical guidelines
of the [place] [employer]. [facility] CHEMISTRY AGAP 16.9 10.0 - 20.0 10/23/2013 Normal [facility] HEMATOLOGY Platelet 330 133 - 450 10/23/2013 Normal [facility] HEMATOLOGY MPV 8.4 7.4 - 10.4 10/23/2013 Normal [facility] HEMATOLOGY MCHC 33.1 32.0 - 36.0 10/23/2013 Normal [facility] HEMATOLOGY RDW 12.5 11.5 - 14.5 10/23/2013 Normal [facility] HEMATOLOGY MCV 94.5 80.0 - 94.0 10/23/2013 [facility] HEMATOLOGY MCH 31.3 27.0 - 31.0 10/23/2013 [facility] HEMATOLOGY Hgb 13.2 14.0 - 18.0 10/23/2013 LOW [facility] HEMATOLOGY Hct 39.7 42.0 - 54.0 10/23/2013 LOW [facility] HEMATOLOGY RBC X 10x6 4.20 4.70 - 6.10 10/23/2013 LOW [facility] HEMATOLOGY WBC X 10x3 8.3 3.7 - 10.4 10/23/2013 Normal [facility] HEMATOLOGY Basophils # 0.1 0.0 - 0.2 10/23/2013 Normal [facility] HEMATOLOGY Segs-Bands # 4.6 1.5 - 8.1 10/23/2013 Normal [facility] HEMATOLOGY Eosinophils 0.4 0.0 - 4.0 10/23/2013 Normal [facility] HEMATOLOGY Lymphocytes # 2.8 1.0 - 5.5 10/23/2013 Normal [facility] HEMATOLOGY Monocytes # 0.8 0.0 - 0.8 10/23/2013 Normal [facility] HEMATOLOGY Basophils 0.7 0.0 - 1.0 10/23/2013 Normal [facility] HEMATOLOGY Segs 55.4 45.0 - 75.0 10/23/2013 Normal [facility] HEMATOLOGY Monocytes 10.2 2.0 - 12.0 10/23/2013 Normal [facility] HEMATOLOGY Lymphocytes 33.3 20.0 - 40.0 10/23/2013 Normal [facility] CHEMISTRY Phosphorus 4.3 2.5 - 4.5 10/22/2013 Normal [facility] CHEMISTRY Magnesium Lvl 2.0 1.8 - 2.4 10/22/2013 Normal [facility] CHEMISTRY eGFR 107 10/22/2013 <sup>2</sup>Result Comment: The eGFR is calculated using the CKD-EPI formula. In most young, healthy individuals the eGFR will be >90 mL/min/1.73m2. The eGFR declines with age. An eGFR of 60-89 may be normal in some populations, particularly the elderly, for whom the CKD-EPI formula has not been extensively validated. Use of the eGFR is not recommended in the following populations:& lt;br/>
Individuals with unstable creatinine concentrations, including patients and those with serious co-morbid conditions.

Patients with extremes in muscle mass or diet.

The data above are obtained from the National Kidney Disease Education Program (NKDEP) which additionally recommends that when the eGFR is used in patients with extremes of body mass index for purposes of drug dosing, the eGFR should be multiplied by the estimated BMI. [facility] CHEMISTRY Chloride Lvl 103 95 - 109 10/22/2013 Normal [facility] CHEMISTRY BUN 10 7 - 22 10/22/2013 Normal [facility] CHEMISTRY Glucose Lvl 93 70 - 99 10/22/2013 Normal <sup>5</sup>Interpretive Data: Adult reference range values reflect the clinical guidelines
of the [place] [employer]. [facility] CHEMISTRY Sodium Lvl 138 135 - 145 10/22/2013 Normal [facility] CHEMISTRY Potassium Lvl 4.3 3.5 - 5.1 10/22/2013 Normal [facility] CHEMISTRY Creatinine Lvl 0.9 0.5 - 1.4 10/22/2013 Normal [facility] CHEMISTRY Calcium Lvl 8.5 8.5 - 10.5 10/22/2013 Normal [facility] CHEMISTRY CO2 24 24 - 32 10/22/2013 Normal [facility] CHEMISTRY AGAP 15.3 10.0 - 20.0 10/22/2013 Normal [facility] HEMATOLOGY Monocytes # 0.9 0.0 - 0.8 10/22/2013 [place] [facility] HEMATOLOGY Lymphocytes # 2.6 1.0 - 5.5 10/22/2013 Normal [facility] HEMATOLOGY Segs-Bands # 6.4 1.5 - 8.1 10/22/2013 [facility] HEMATOLOGY Basophils 0.2 0.0 - 1.0 10/22/2013 [facility] HEMATOLOGY Eosinophils 0.1 0.0 - 4.0 10/22/2013 [facility] HEMATOLOGY Monocytes 9.0 2.0 - 12.0 10/22/2013 [facility] HEMATOLOGY Lymphocytes 26.1 20.0 - 40.0 10/22/2013 [facility] HEMATOLOGY Segs 64.6 45.0 - 75.0 10/22/2013 [facility] HEMATOLOGY MPV 8.4 7.4 - 10.4 10/22/2013 [facility] HEMATOLOGY Platelet 345 133 - 450 10/22/2013 [facility] HEMATOLOGY RDW 12.8 11.5 - 14.5 10/22/2013 [facility] HEMATOLOGY MCHC 35.0 32.0 - 36.0 10/22/2013 [facility] HEMATOLOGY MCH 32.8 27.0 - 31.0 10/22/2013 [place] [facility] HEMATOLOGY MCV 93.9 80.0 - 94.0 10/22/2013 [facility] HEMATOLOGY Hct 38.2 42.0 - 54.0 10/22/2013 [facility] HEMATOLOGY Hgb 13.3 14.0 - 18.0 10/22/2013 [facility] HEMATOLOGY RBC X 10x6 4.07 4.70 - 6.10 10/22/2013 [facility] HEMATOLOGY WBC X 10x3 9.9 3.7 - 10.4 10/22/2013 [facility] BLOOD BANK RESULTS ABO/Rh O POS 10/21/2013 [facility] BLOOD BANK RESULTS Antibody Scrn Negative (10/21/2013 08:35:00) 10/21/2013 [facility] CHEMISTRY eGFR 94 10/15/2013 <sup>3</sup>Result Comment: The eGFR is calculated using the CKD-EPI formula. In most young, healthy individuals the eGFR will be >90 mL/min/1.73m2. The eGFR declines with age. An eGFR of 60-89 may be normal in some populations, particularly the elderly, for whom the CKD-EPI formula has not been extensively validated. Use of the eGFR is not recommended in the following populations:& lt;br/>
Individuals with unstable creatinine concentrations, including patients and those with serious co-morbid conditions.

Patients with extremes in muscle mass or diet.

The data above are obtained from the National Kidney Disease Education Program (NKDEP) which additionally recommends that when the eGFR is used in patients with extremes of body mass index for purposes of drug dosing, the eGFR should be multiplied by the estimated BMI. [facility] CHEMISTRY ALANINE AMINOTRANSFERASE 150 0 - 65 10/15/2013 [facility] CHEMISTRY Albumin Lvl 4.0 3.5 - 5.0 10/15/2013 Normal [facility] CHEMISTRY Total Protein 7.7 6.4 - 8.4 10/15/2013 Normal [facility] CHEMISTRY ASPARTATE TRANSAMINASE 71 0 - 37 10/15/2013 [facility] CHEMISTRY Sodium Lvl 139 135 - 145 10/15/2013 Normal [facility] CHEMISTRY Creatinine Lvl 1.0 0.5 - 1.4 10/15/2013 Normal [facility] CHEMISTRY BUN 10 7 - 22 10/15/2013 Normal [facility] CHEMISTRY Glucose Lvl 89 70 - 99 10/15/2013 Normal <sup>6</sup>Interpretive Data: Adult reference range values reflect the clinical guidelines
of the [place] [employer]. [facility] CHEMISTRY Alk Phos 97 39 - 136 10/15/2013 Normal [facility] CHEMISTRY Bili Total 0.5 0.2 - 1.3 10/15/2013 Normal [facility] CHEMISTRY CO2 26 24 - 32 10/15/2013 Normal [facility] CHEMISTRY Potassium Lvl 4.4 3.5 - 5.1 10/15/2013 Normal [facility] [facility] CHEMISTRY Calcium Lvl 9.1 8.5 - 10.5 10/15/2013 Normal [facility] CHEMISTRY Chloride Lvl 103 95 - 109 10/15/2013 Normal [facility] CHEMISTRY Globulin 3.7 2.0 - 4.0 10/15/2013 Normal [facility] CHEMISTRY B/C Ratio 10 6 - 25 10/15/2013 Normal [facility] CHEMISTRY AGAP 14.4 10.0 - 20.0 10/15/2013 Normal [facility] CHEMISTRY A/G Ratio 1.1 0.7 - 1.6 10/15/2013 Normal [facility] HEMATOLOGY MPV 8.3 7.4 - 10.4 10/15/2013 Normal [facility] HEMATOLOGY RDW 13.0 11.5 - 14.5 10/15/2013 Normal [facility] HEMATOLOGY MCHC 34.5 32.0 - 36.0 10/15/2013 Normal [facility] HEMATOLOGY Platelet 312 133 - 450 10/15/2013 Normal [facility] HEMATOLOGY WBC X 10x3 7.9 3.7 - 10.4 10/15/2013 Normal [facility] HEMATOLOGY MCV 93.3 80.0 - 94.0 10/15/2013 [facility] HEMATOLOGY MCH 32.2 27.0 - 31.0 10/15/2013 [facility] HEMATOLOGY Hct 40.8 42.0 - 54.0 10/15/2013 LOW [facility] HEMATOLOGY RBC X 10x6 4.37 4.70 - 6.10 10/15/2013 LOW [facility] HEMATOLOGY Hgb 14.1 14.0 - 18.0 10/15/2013 Normal [facility] HEMATOLOGY Basophils # 0.1 0.0 - 0.2 10/15/2013 Normal [facility] HEMATOLOGY Eosinophils # 0.1 0.0 - 0.5 10/15/2013 [facility] HEMATOLOGY Eosinophils 1.7 0.0 - 4.0 10/15/2013 [facility] HEMATOLOGY Segs-Bands # 3.8 1.5 - 8.1 10/15/2013 [facility] HEMATOLOGY Basophils 0.8 0.0 - 1.0 10/15/2013 [facility] HEMATOLOGY Monocytes # 0.9 0.0 - 0.8 10/15/2013 [facility] HEMATOLOGY Lymphocytes # 3.1 1.0 - 5.5 10/15/2013 Normal [facility] HEMATOLOGY Lymphocytes 38.6 20.0 - 40.0 10/15/2013 [facility] HEMATOLOGY Segs 47.6 45.0 - 75.0 10/15/2013 [facility] HEMATOLOGY Monocytes 11.3 2.0 - 12.0 10/15/2013 [facility] URINALYSIS UA Urobilinogen <=1.0 mg/dL 0.1 - 1.0 10/15/2013 [facility] URINALYSIS UA Sq Epi None Seen 10/15/2013 [facility] URINALYSIS UA Nitrite Negative (10/15/2013 14:00:00) Negative 10/15/2013 Normal [facility] URINALYSIS UA Mucus Moderate /LPF None Seen 10/15/2013 ABN [facility] URINALYSIS UA Leuk Est Negative (10/15/2013 14:00:00) Negative 10/15/2013 Normal [facility] URINALYSIS UA Bili Negative *NA* (10/15/2013 14:00:00) Negative 10/15/2013 [facility] URINALYSIS UA Blood Negative (10/15/2013 14:00:00) Negative 10/15/2013 Normal [facility] URINALYSIS UA Turbidity Clear (10/15/2013 14:00:00) Clear 10/15/2013 Normal [facility] URINALYSIS UA Color Yellow *NA* (10/15/2013 14:00:00) Yellow 10/15/2013 [facility] URINALYSIS UA Protein 10 mg/dL Negative 10/15/2013 ABN [facility] URINALYSIS UA pH 6.0 5.0 - 8.0 10/15/2013 Normal [facility] URINALYSIS UA Glucose Negative mg/dL Negative 10/15/2013 [facility] URINALYSIS UA Ketones Negative mg/dL Negative 10/15/2013 [facility] URINALYSIS UA Spec Grav 1.016 <=1.030 10/15/2013 Normal [facility] Pathology Reports No Data Provided for This Section Diagnostic Reports Report Value Date Source Bone Density-Dual Energy Absorptionmetry EXAM: Bone density study, multiple sites; dual photon absorptiometry DATE: 10/28/2014 at 1142 hours. INDICATION: Screening for osteoporosis. TECHNIQUE: Lumbar spine and left hip bone mineral densities were measured using Zeto System. FINDINGS: Lumbar spine: L1-L4 average bone mineral density is 1.111 gm/cm2 with a T score of -0.9. Left hip: The left femoral neck and total hip bone mineral densities are 1.029 and 1.122 gm/cm2 with a T score of -0.3 and 0.1 respectively. IMPRESSION: 1. Borderline normal bone density of the lumbar spine. 2. Normal bone density of the left femoral neck and total left hip. 10/28/2014 [facility] Stomach UGI (barium) Exam: Upper GI swallow exam Reason for Exam: Reflux. Chest pain. Comparison Exam: Chest x-ray 03/11/2014 Discussion: On dye jig operator view, there are no dilated loops of bowel abnormal air-fluid level patterns. The patient is status post Gastric Sleeve surgery in October 2013. Surrounding skeletal structures are unremarkable. Patient ingested barium and air crystals without incident. The esophagus is normal in appearance without evidence for mucosal irregularities or abnormal filling defects. No tertiary contraction waves or hiatal hernia. During the exam, there was no evidence seen for gastroesophageal reflux. The stomach and proximal duodenum are unremarkable in appearance. Fluoro time 1 minute, 48 seconds. Impression: 1. No evidence seen for gastroesophageal reflux. Gastric Sleeve surgery appears unremarkable. 05/14/2014 [facility] Chest 1view EXAM: Portable chest x-ray. HISTORY: Chest pain. TECHNIQUE: Portable frontal view of the chest. FINDINGS: Possible COPD. No appreciable pneumonia, edema or pleural effusion. Heart size normal. SL: 12 03/11/2014 [facility] Consultation Notes No Data Provided for This Section Discharge Summaries No Data Provided for This Section History and Physicals No Data Provided for This Section Vital Signs Vital Sign Value Date Comments Source Systolic (mm Hg) 124 03/11/2014 [facility] Heart Rate 75 03/11/2014 [facility] Respitory Rate 20 03/11/2014 [facility] Diastolic (mm Hg) 78 03/11/2014 [facility] BMI Calculated 28.95 03/11/2014 [facility] Height 172.72 cm 03/11/2014 [facility] Weight 86.364 03/11/2014 [facility] Systolic (mm Hg) 137 03/11/2014 [facility] Diastolic (mm Hg) 84 03/11/2014 [facility] Respitory Rate 18 03/11/2014 [facility] Heart Rate 62 03/11/2014 [facility] Temperature Oral (F) 97.7 F 03/11/2014 [facility] Respitory Rate 18 10/23/2013 [facility] Heart Rate 91 10/23/2013 [facility] Diastolic (mm Hg) 90 10/23/2013 [facility] Systolic (mm Hg) 149 10/23/2013 [facility] Temperature Oral (F) 98.7 F 10/23/2013 [facility] Heart Rate 89 10/23/2013 [facility] Respitory Rate 18 10/23/2013 [facility] Systolic (mm Hg) 138 10/23/2013 [facility] Diastolic (mm Hg) 89 10/23/2013 [facility] Temperature Oral (F) 98.7 F 10/23/2013 [facility] Respitory Rate 18 10/23/2013 [facility] Heart Rate 70 10/23/2013 [facility] Systolic (mm Hg) 139 10/23/2013 [facility] Temperature Oral (F) 98.1 F 10/23/2013 [facility] Diastolic (mm Hg) 89 10/23/2013 [facility] Weight 116.818 10/21/2013 [facility] Height 170.18 cm 10/21/2013 [facility] Weight 116.818 10/21/2013 [facility] Height 170.18 cm 10/15/2013 [facility] Encounters Location Location Details Encounter Type Encounter Number Reason For Visit Attending Provider ADM Date DC Date Status Source [facility] Inpatient [id number] MIKE DON 10/21/2013 10/23/2013 Discharged [facility] [id number] Mamadou Amezcua 03/11/2014 03/11/2014 [facility] [place] [facility] [id number] Mike Don 05/14/2014 05/15/2014 [facility] [place] [facility] [id number] Mike Don 10/28/2014 10/29/2014 [facility] [place] [facility] Procedures Procedure Code Date Perfomer Comments Source Arthroscopy of knee<sup>1</sup> [id number] [facility] Hernia repair<sup>2</sup> [id number] [facility] Assessment and Plan No Data Provided for This Section Plan of Care No Data Provided for This Section Social History Social History Date Source Social History TypeResponse Smoking Status Former smoker, Type: Cigarettes, Exposure to Tobacco Smoke None, Cigarette Smoking Last 365 Days No, Reg Smoking Cessation Counseling No 03/11/2014 [facility] Social History TypeResponse Smoking Status Former smoker, Type: Cigarettes, Exposure to Tobacco Smoke None, Cigarette Smoking Last 365 Days No, Reg Smoking Cessation Counseling No 03/11/2014 [facility] Social History TypeResponse Smoking Status Former smoker, Type: Cigarettes, Exposure to Tobacco Smoke None, Cigarette Smoking Last 365 Days No, Reg Smoking Cessation Counseling No 03/11/2014 [facility] Family History No Data Provided for This Section Advance Directives No Data Provided for This Section Functional Status No Data Provided for This Section
--- OUTSIDE RECORDS SUMMARY | 2019-08-02 06:40 | XMS REPORT ---
Author Author [facility] Address Unknown Phone Unavailable Care Team Providers Care Rental Management Trainee Name Role Phone DR LEONARDO LAU Unavailable Unavailable Problems This patient has no known problems. Allergies, Adverse Reactions, Alerts This patient has no known allergies or adverse reactions. Medications This patient has no known medications. Encounters Start Date/Time End Date/Time Encounter Type Admission Type Attending Clinicians Care Facility Care Department Encounter ID 2019-07-28 06:10:00 2019-07-28 10:10:00 Outpatient [facility] [id number]
--- OUTSIDE RECORDS SUMMARY | 2019-08-02 06:53 | XMS REPORT | Continuity of Care Document ---
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 Name Role Phone [facility] Unavailable Unavailable Problems Problem Status Onset Date Classification Date Reported Comments Source Discharge Diagnosis: chest pain 03/11/2014 03/14/2014 [facility] CHEST PAIN Active 03/11/2014 [facility] MORBID OBESITY Active 10/06/2013 [facility] Hiatal hernia (disorder) Resolved Problem 10/31/2014 [facility], [facility] [place],[facility], [facility] Hypertensive disorder, systemic arterial (disorder) Resolved Problem 10/31/2014 [facility], [facility] [place], [facility] Morbid obesity (disorder) Resolved Problem 10/31/2014 [facility], [facility] [place], [facility] Obstructive sleep apnea syndrome (disorder) Resolved Problem 10/31/2014 [facility], [facility] [place], [facility] Osteoarthritis (disorder) Resolved Problem 10/31/2014 [facility], [facility] [place], [facility] Reflux (finding) Resolved Problem 10/31/2014 [facility], [facility] [place],[facility], [facility] MORBID OBESITY Active [facility] Medications Medication Details Route Status Patient Instructions Ordering Provider Order Date Source Nitroglycerin 0.4 MG Sublingual Tablet 0.4 mg=1 tab, SL, Q5Min, Chest pain, # 100 tab, 0 Refill(s) Active 03/11/2014 [facility] Aspirin 81 MG Chewable Tablet 81 mg, 1 tab, Route: PO, Drug form: CHEWTAB, ONCE, Dosing Weight 86.364, kg, Priority: STAT, Start date: 03/11/14 15:07:00, Stop date: 03/11/14 15:07:00Notes: Take with food. Inactive 03/11/2014 [facility] Saline Flush 0.9% 5 ml, Route: IVP, Drug Form: INJ, Dosing Weight 86.364, kg, PRN, PRN Line Flush, Start date: 03/11/14 15:07:00, Duration: 30 day, Stop date: 04/10/14 15:06:00Notes: (Same as: BD Posiflush) Inactive 03/11/2014 [facility] docusate sodium 150 mg/15 mL oral liquid 100 mg=10 ml, PO, Daily, # 240 ml, 0 Refill(s) Active [facility] 10/23/2013 [facility] acetaminophen-hydrocodone 325 mg-7.5 mg/15 mL oral solution 15 ml, PO, Q4H, Pain, # 420 mL, 0 Refill(s) Active [facility] 10/23/2013 [facility] acetaminophen-hydrocodone 300 mg-10 mg/15 mL oral liquid 15 mL, Route: PO, Drug Form: SOLN, Dosing Weight 116.818, kg, Q4H, PRN Pain, Start date: 10/22/13 9:32:00, Duration: 30 day, Stop date: 11/21/13 9:31:00Do not exceed 4gm/day of acetaminophen. (Same as: Zolvit) No Longer Active [facility] 10/22/2013 [facility] heparin 5,000 unit, 1 mL, Route: SUB-Q, Drug form: INJ, Q8H, Start date: 10/22/13 8:00:00, Duration: 30 day, Stop date: 11/21/13 0:00:00porcine heparin No Longer Active [facility] 10/22/2013 [facility] Mefoxin 2 gm, Route: IVPB, Drug form: INJ, ABXQ8H, Start date: 10/21/13 18:30:00, Duration: 2 doses or times, Stop date: 10/22/13 2:30:00(Same As: Mefoxin) No Longer Active [facility] 10/22/2013 [facility] ketorolac 30 mg/mL injectable solution 30 mg, 1 mL, Route: IV, Drug form: INJ, Q6H, Dosing Weight 116.818, kg, Start date: 10/21/13 18:00:00, Duration: 4 day, Stop date: 10/25/13 12:00:00(Same as:Toradol) IV bolus must be given >15 seconds. Give IM administration slowly and deeply into the muscle. Not for use > 4 days No Longer Active [facility] 10/22/2013 [facility] Ofirmev 1,000 mg, 100 mL, Route: IV, Drug form: INJ, Q6H, Start date: 10/21/13 18:00:00, Duration: 48 hr, Stop date: 10/25/13 12:00:00Infuse over 15 minutes Do not exceed 4gm/day of acetaminophen No Longer Active [facility] 10/22/2013 [facility] Protonix 40 mg, Route: IVP, Drug form: INJ, Before Dinner, Start date: 10/21/13 16:30:00, Duration: 30 day, Stop date: 11/19/13 16:30:00For IV push reconstitute with 10 ml 0.9% sodium chloride and push over 2 minutes. (Same as: Protonix) No Longer Active [facility] 10/21/2013 [facility] Dilaudid 0.2 mg, 0.1 mL, Route: IV, Drug form: INJ, Q4H, PRN Pain, Start date: 10/21/13 15:53:00, Duration: 30 day, Stop date: 11/20/13 15:52:00Same as: Dilaudid No Longer Active [facility] 10/21/2013 [facility] Zofran 4 mg, 2 mL, Route: IVP, Drug form: INJ, Q6H, PRN Nausea & Vomiting, Start date: 10/21/13 15:51:00, Duration: 30 day, Stop date: 11/20/13 15:50:00(Same as: Zofran) No Longer Active [facility] 10/21/2013 [facility] Lactated Ringers Injection IV 1,000 mL 1,000 mL, Rate: 100 ml/hr, Infuse over: 10 hr, Route: IV, Dosing Weight 116.818 kg, Total Volume: 1,000, Start date: 10/21/13 15:42:00, Stop date: 11/20/13 15:41:00 No Longer Active [facility] 10/21/2013 [facility] acetaminophen-hydrocodone 300 mg-10 mg/15 mL oral liquid 15 mL, Route: PO, Dosing Weight 116.818, kg, ONCE, Start date: 10/21/13 11:11:00, Stop date: 10/21/13 11:11:00 Inactive [place] 10/21/2013 [facility] hydromorphone 0.5 mg, Route: IVP, Q5Min, Dosing Weight 116.818, kg, PRN Pain Score 7-10, Start date: 10/21/13 11:11:00, Duration: 4 doses or times, Stop date: Limited # of times Inactive [place] 10/21/2013 [facility] flumazenil 0.2 mg, Route: IVP, PRN, Dosing Weight 116.818, kg, PRN Benzodiazepine Reversal, Initial dose, Start date: 10/21/13 11:11:00, Duration: 30 day, Stop date: 11/20/13 11:10:00 Inactive [place] 10/21/2013 [facility] metoprolol 1 mg, Route: IVP, Q5Min, Dosing Weight 116.818, kg, PRN Other -See Comment, Start date: 10/21/13 11:11:00, Duration: 5 doses or times, Stop date: Limited # of times Inactive [place] 10/21/2013 [facility] labetalol 10 mg, Route: IVP, Q5Min, Dosing Weight 116.818, kg, PRN Elevated BP, Start date: 10/21/13 11:11:00, Duration: 5 doses or times, Stop date: Limited # of times Inactive [place] 10/21/2013 [facility] naloxone 0.04 mg, Route: IVP, Q2MIN, Dosing Weight 116.818, kg, PRN Narcotic Reversal, Start date: 10/21/13 11:11:00, Duration: 8 doses or times, Stop date: Limited # of times Inactive [place] 10/21/2013 [facility] promethazine 6.25 mg, Route: IVPB, ONCE, Dosing Weight 116.818, kg, PRN Nausea & Vomiting, Start date: 10/21/13 11:11:00 Inactive [place] 10/21/2013 [facility] OXYcodone 5 mg/5 mL oral solution 5 mg, Route: NG, Q4H, Dosing Weight 116.818, kg, PRN Pain Score 4-6, Start date: 10/21/13 11:11:00, Duration: 30 day, Stop date: 11/20/13 11:10:00 Inactive [place] 10/21/2013 [facility] ondansetron 4 mg, Route: IVP, ONCE, Dosing Weight 116.818, kg, PRN Nausea & Vomiting, Start date: 10/21/13 11:11:00 Inactive [place] 10/21/2013 [facility] bupivacaine liposome 20 mL, Route: InFILtration(local), Drug [...] each (total dose=30 mL [266 mg]) Inactive [place] 10/21/2013 [facility] heparin 5,000 unit, 1 mL, Route: SUB-Q, Drug form: INJ, PRE OP, Priority: NOW, Start date: 10/21/13 8:47:00, Duration: 1 doses or times, Stop date: 10/22/13 0:00:00porcine heparin Inactive [place] 10/21/2013 [facility] scopolamine 1 patch, Route: TOP, Drug form: ERFILM, PRE OP, Priority: NOW, Start date: 10/21/13 8:46:00, Duration: 1 doses or times, Stop date: 10/22/13 0:00:00Change patch every 72 hours (Same as: Transderm-S copyright manager) Inactive [place] 10/21/2013 [facility] Mefoxin 2 gm, Route: IVPB, Drug form: INJ, PRE OP, Priority: NOW, Start date: 10/21/13 8:45:00, Duration: 1 doses or times, Stop date: 10/22/13 0:00:00(Same As: Mefoxin) Inactive [place] 10/21/2013 [facility] Fish Oil 1000 mg oral capsule 0 Refill(s) No Longer Active 10/16/2013 [facility] calcium-vitamin D 250 mg-125 units oral tablet 1 tab, PO, TID, # 90 tab, 0 Refill(s) Active 10/16/2013 [facility] Vitamin B12 100 mcg oral tablet 100 microgram=1 tab, PO, Daily, # 90 tab, 0 Refill(s) Active 10/16/2013 [facility] metoprolol tartrate 100 mg oral tablet 100 mg=1 tab, PO, BID, # 180 tab, 0 Refill(s) No Longer Active 10/16/2013 [facility] Allergies, Adverse Reactions, Alerts No Known Medication Allergies Immunizations No Data Provided for This Section Results Order Name Results Value Reference Range Date Interpretation Comments Source CARDIAC ENZYMES CK MB 0.8 0.5 - 3.6 03/11/2014 [facility] CARDIAC ENZYMES Total CK 108 12 - 191 03/11/2014 [facility] CARDIAC ENZYMES Troponin-I <0.015 ng/mL 0.00 - 0.40 03/11/2014 [facility] CARDIAC ENZYMES CK-MB INDEX 0.7 0.0 - 2.5 03/11/2014 [facility] CHEM PANEL eGFR 106 03/11/2014 <sup>1</sup>Result [...] should be multiplied by the estimated BMI. [facility] CHEM PANEL AGAP 7.0 10.0 - 20.0 03/11/2014 [facility] CHEM PANEL Calcium Lvl 8.5 8.5 - 10.5 03/11/2014 [facility] CHEM PANEL Chloride Lvl 109 95 - 109 03/11/2014 [facility] CHEM PANEL CO2 30 24 - 32 03/11/2014 [facility] CHEM PANEL Creatinine Lvl 0.9 0.5 - 1.4 03/11/2014 [facility] CHEM PANEL Sodium Lvl 142 135 - 145 03/11/2014 [facility] CHEM PANEL Potassium Lvl 4.0 3.5 - 5.1 03/11/2014 [facility] CHEM PANEL Glucose Lvl 115 70 - 99 03/11/2014 <sup>2</sup>Interpretive Data: Adult reference range values reflect the clinical guidelines
of the [place] [employer]. [facility] CHEM PANEL BUN 8 7 - 22 03/11/2014 [facility] HEMATOLOGY Platelet 297 133 - 450 03/11/2014 [facility] HEMATOLOGY MPV 8.3 7.4 - 10.4 03/11/2014 [facility] HEMATOLOGY Hct 39.1 42.0 - 54.0 03/11/2014 [facility] HEMATOLOGY MCV 94.4 80.0 - 94.0 03/11/2014 [facility] HEMATOLOGY MCH 32.3 27.0 - 31.0 03/11/2014 [facility] HEMATOLOGY Hgb 13.4 14.0 - 18.0 03/11/2014 [facility] HEMATOLOGY RBC 4.14 4.70 - 6.10 03/11/2014 [facility] HEMATOLOGY MCHC 34.2 32.0 - 36.0 03/11/2014 [facility] HEMATOLOGY RDW 14.1 11.5 - 14.5 03/11/2014 [facility] HEMATOLOGY WBC 7.5 3.7 - 10.4 03/11/2014 [facility] HEMATOLOGY Eosinophils # 0.0 0.0 - 0.5 03/11/2014 [facility] HEMATOLOGY Basophils # 0.1 0.0 - 0.2 03/11/2014 [facility] HEMATOLOGY Basophils 1.4 0.0 - 1.0 03/11/2014 [facility] HEMATOLOGY Monocytes # 0.4 0.0 - 0.8 03/11/2014 [facility] HEMATOLOGY Segs-Bands # 4.1 1.5 - 8.1 03/11/2014 [facility] HEMATOLOGY Monocytes 5.7 2.0 - 12.0 03/11/2014 [facility] HEMATOLOGY Eosinophils 0.6 0.0 - 4.0 03/11/2014 [facility] HEMATOLOGY Lymphocytes # 2.8 1.0 - 5.5 03/11/2014 [facility] HEMATOLOGY Segs 54.9 45.0 - 75.0 03/11/2014 [facility] HEMATOLOGY Lymphocytes 37.4 20.0 - 40.0 03/11/2014 [facility] CHEMISTRY Magnesium Lvl 1.9 1.8 - 2.4 10/23/2013 Normal [facility] CHEMISTRY Phosphorus 2.3 2.5 - 4.5 10/23/2013 LOW [facility] CHEMISTRY eGFR 107 10/23/2013 <sup>1</sup>Result Comment: The [...] should be multiplied by the estimated BMI. [facility] CHEMISTRY Calcium Lvl 8.3 8.5 - 10.5 10/23/2013 LOW [facility] CHEMISTRY CO2 22 24 - 32 10/23/2013 LOW [facility] CHEMISTRY Chloride Lvl 103 95 - 109 10/23/2013 Normal [facility] CHEMISTRY Potassium Lvl 3.9 3.5 - 5.1 10/23/2013 Normal [facility] CHEMISTRY Sodium Lvl 138 135 - 145 10/23/2013 Normal [facility] CHEMISTRY Creatinine Lvl 0.9 0.5 - 1.4 10/23/2013 Normal [facility] CHEMISTRY BUN 9 7 - 22 10/23/2013 Normal [facility] CHEMISTRY Glucose Lvl 69 70 - 99 10/23/2013 LOW <sup>4</sup>Interpretive Data: Adult reference range values reflect the clinical guidelines
of the [place] [employer]. [facility] CHEMISTRY AGAP 16.9 10.0 - 20.0 10/23/2013 Normal [facility] HEMATOLOGY Platelet 330 133 - 450 10/23/2013 Normal [facility] HEMATOLOGY MPV 8.4 7.4 - 10.4 10/23/2013 Normal [facility] HEMATOLOGY MCHC 33.1 32.0 - 36.0 10/23/2013 Normal [facility] HEMATOLOGY RDW 12.5 11.5 - 14.5 10/23/2013 Normal [facility] HEMATOLOGY MCV 94.5 80.0 - 94.0 10/23/2013 [facility] HEMATOLOGY MCH 31.3 27.0 - 31.0 10/23/2013 [facility] HEMATOLOGY Hgb 13.2 14.0 - 18.0 10/23/2013 LOW [facility] HEMATOLOGY Hct 39.7 42.0 - 54.0 10/23/2013 LOW [facility] HEMATOLOGY RBC X 10x6 4.20 4.70 - 6.10 10/23/2013 LOW [facility] HEMATOLOGY WBC X 10x3 8.3 3.7 - 10.4 10/23/2013 Normal [facility] HEMATOLOGY Basophils # 0.1 0.0 - 0.2 10/23/2013 Normal [facility] HEMATOLOGY Segs-Bands # 4.6 1.5 - 8.1 10/23/2013 Normal [facility] HEMATOLOGY Eosinophils 0.4 0.0 - 4.0 10/23/2013 Normal [facility] HEMATOLOGY Lymphocytes # 2.8 1.0 - 5.5 10/23/2013 Normal [facility] HEMATOLOGY Monocytes # 0.8 0.0 - 0.8 10/23/2013 Normal [facility] HEMATOLOGY Basophils 0.7 0.0 - 1.0 10/23/2013 Normal [facility] HEMATOLOGY Segs 55.4 45.0 - 75.0 10/23/2013 Normal [facility] HEMATOLOGY Monocytes 10.2 2.0 - 12.0 10/23/2013 Normal [facility] HEMATOLOGY Lymphocytes 33.3 20.0 - 40.0 10/23/2013 Normal [facility] CHEMISTRY Phosphorus 4.3 2.5 - 4.5 10/22/2013 Normal [facility] CHEMISTRY Magnesium Lvl 2.0 1.8 - 2.4 10/22/2013 Normal [facility] CHEMISTRY eGFR 107 10/22/2013 <sup>2</sup>Result Comment: The [...] should be multiplied by the estimated BMI. [facility] CHEMISTRY Chloride Lvl 103 95 - 109 10/22/2013 Normal [facility] CHEMISTRY BUN 10 7 - 22 10/22/2013 Normal [facility] CHEMISTRY Glucose Lvl 93 70 - 99 10/22/2013 Normal <sup>5</sup>Interpretive Data: Adult reference range values reflect the clinical guidelines
of the [place] [employer]. [facility] CHEMISTRY Sodium Lvl 138 135 - 145 10/22/2013 Normal [facility] CHEMISTRY Potassium Lvl 4.3 3.5 - 5.1 10/22/2013 Normal [facility] CHEMISTRY Creatinine Lvl 0.9 0.5 - 1.4 10/22/2013 Normal [facility] CHEMISTRY Calcium Lvl 8.5 8.5 - 10.5 10/22/2013 Normal [facility] CHEMISTRY CO2 24 24 - 32 10/22/2013 Normal [facility] CHEMISTRY AGAP 15.3 10.0 - 20.0 10/22/2013 Normal [facility] HEMATOLOGY Monocytes # 0.9 0.0 - 0.8 10/22/2013 [place] [facility] HEMATOLOGY Lymphocytes # 2.6 1.0 - 5.5 10/22/2013 Normal [facility] HEMATOLOGY Segs-Bands # 6.4 1.5 - 8.1 10/22/2013 [facility] HEMATOLOGY Basophils 0.2 0.0 - 1.0 10/22/2013 [facility] HEMATOLOGY Eosinophils 0.1 0.0 - 4.0 10/22/2013 [facility] HEMATOLOGY Monocytes 9.0 2.0 - 12.0 10/22/2013 [facility] HEMATOLOGY Lymphocytes 26.1 20.0 - 40.0 10/22/2013 [facility] HEMATOLOGY Segs 64.6 45.0 - 75.0 10/22/2013 [facility] HEMATOLOGY MPV 8.4 7.4 - 10.4 10/22/2013 [facility] HEMATOLOGY Platelet 345 133 - 450 10/22/2013 [facility] HEMATOLOGY RDW 12.8 11.5 - 14.5 10/22/2013 [facility] HEMATOLOGY MCHC 35.0 32.0 - 36.0 10/22/2013 [facility] HEMATOLOGY MCH 32.8 27.0 - 31.0 10/22/2013 [facility] HEMATOLOGY MCV 93.9 80.0 - 94.0 10/22/2013 [facility] HEMATOLOGY Hct 38.2 42.0 - 54.0 10/22/2013 [facility] HEMATOLOGY Hgb 13.3 14.0 - 18.0 10/22/2013 [facility] HEMATOLOGY RBC X 10x6 4.07 4.70 - 6.10 10/22/2013 [facility] HEMATOLOGY WBC X 10x3 9.9 3.7 - 10.4 10/22/2013 [facility] BLOOD BANK RESULTS ABO/Rh O POS 10/21/2013 [facility] BLOOD BANK RESULTS Antibody Scrn Negative (10/21/2013 08:35:00) 10/21/2013 [facility] CHEMISTRY eGFR 94 10/15/2013 <sup>3</sup>Result Comment: [...] should be multiplied by the estimated BMI. [facility] CHEMISTRY ALANINE AMINOTRANSFERASE 150 0 - 65 10/15/2013 [facility] CHEMISTRY Albumin Lvl 4.0 3.5 - 5.0 10/15/2013 Normal [facility] CHEMISTRY Total Protein 7.7 6.4 - 8.4 10/15/2013 Normal [facility] CHEMISTRY ASPARTATE TRANSAMINASE 71 0 - 37 10/15/2013 [facility] CHEMISTRY Sodium Lvl 139 135 - 145 10/15/2013 Normal [facility] CHEMISTRY Creatinine Lvl 1.0 0.5 - 1.4 10/15/2013 Normal [facility] CHEMISTRY BUN 10 7 - 22 10/15/2013 Normal [facility] CHEMISTRY Glucose Lvl 89 70 - 99 10/15/2013 Normal <sup>6</sup>Interpretive Data: Adult reference range values reflect the clinical guidelines
of the [place] [employer]. [facility] CHEMISTRY Alk Phos 97 39 - 136 10/15/2013 Normal [facility] CHEMISTRY Bili Total 0.5 0.2 - 1.3 10/15/2013 Normal [facility] CHEMISTRY CO2 26 24 - 32 10/15/2013 Normal [facility] CHEMISTRY Potassium Lvl 4.4 3.5 - 5.1 10/15/2013 Normal [facility] CHEMISTRY Calcium Lvl 9.1 8.5 - 10.5 10/15/2013 Normal [facility] CHEMISTRY Chloride Lvl 103 95 - 109 10/15/2013 Normal [facility] CHEMISTRY Globulin 3.7 2.0 - 4.0 10/15/2013 Normal [facility] CHEMISTRY B/C Ratio 10 6 - 25 10/15/2013 Normal [facility] CHEMISTRY AGAP 14.4 10.0 - 20.0 10/15/2013 Normal [facility] CHEMISTRY A/G Ratio 1.1 0.7 - 1.6 10/15/2013 Normal [facility] HEMATOLOGY MPV 8.3 7.4 - 10.4 10/15/2013 Normal [facility] HEMATOLOGY RDW 13.0 11.5 - 14.5 10/15/2013 Normal [facility] HEMATOLOGY MCHC 34.5 32.0 - 36.0 10/15/2013 Normal [facility] HEMATOLOGY Platelet 312 133 - 450 10/15/2013 Normal [facility] HEMATOLOGY WBC X 10x3 7.9 3.7 - 10.4 10/15/2013 Normal [facility] HEMATOLOGY MCV 93.3 80.0 - 94.0 10/15/2013 [facility] HEMATOLOGY MCH 32.2 27.0 - 31.0 10/15/2013 [facility] HEMATOLOGY Hct 40.8 42.0 - 54.0 10/15/2013 LOW [facility] HEMATOLOGY RBC X 10x6 4.37 4.70 - 6.10 10/15/2013 LOW [facility] HEMATOLOGY Hgb 14.1 14.0 - 18.0 10/15/2013 Normal [facility] HEMATOLOGY Basophils # 0.1 0.0 - 0.2 10/15/2013 Normal [facility] HEMATOLOGY Eosinophils # 0.1 0.0 - 0.5 10/15/2013 [facility] HEMATOLOGY Eosinophils 1.7 0.0 - 4.0 10/15/2013 [facility] HEMATOLOGY Segs-Bands # 3.8 1.5 - 8.1 10/15/2013 [facility] HEMATOLOGY Basophils 0.8 0.0 - 1.0 10/15/2013 [facility] HEMATOLOGY Monocytes # 0.9 0.0 - 0.8 10/15/2013 [facility] HEMATOLOGY Lymphocytes # 3.1 1.0 - 5.5 10/15/2013 Normal [facility] HEMATOLOGY Lymphocytes 38.6 20.0 - 40.0 10/15/2013 [facility] HEMATOLOGY Segs 47.6 45.0 - 75.0 10/15/2013 [facility] HEMATOLOGY Monocytes 11.3 2.0 - 12.0 10/15/2013 [facility] URINALYSIS UA Urobilinogen <=1.0 mg/dL 0.1 - 1.0 10/15/2013 [facility] URINALYSIS UA Sq Epi None Seen 10/15/2013 [facility] URINALYSIS UA Nitrite Negative (10/15/2013 14:00:00) Negative 10/15/2013 Normal [facility] URINALYSIS UA Mucus Moderate /LPF None Seen 10/15/2013 ABN [facility] URINALYSIS UA Leuk Est Negative (10/15/2013 14:00:00) Negative 10/15/2013 Normal [facility] URINALYSIS UA Bili Negative *NA* (10/15/2013 14:00:00) Negative 10/15/2013 [facility] URINALYSIS UA Blood Negative (10/15/2013 14:00:00) Negative 10/15/2013 Normal [facility] URINALYSIS UA Turbidity Clear (10/15/2013 14:00:00) Clear 10/15/2013 Normal [facility] URINALYSIS UA Color Yellow *NA* (10/15/2013 14:00:00) Yellow 10/15/2013 [facility] URINALYSIS UA Protein 10 mg/dL Negative 10/15/2013 ABN [facility] URINALYSIS UA pH 6.0 5.0 - 8.0 10/15/2013 Normal [facility] URINALYSIS UA Glucose Negative mg/dL Negative 10/15/2013 [facility] URINALYSIS UA Ketones Negative mg/dL Negative 10/15/2013 [facility] URINALYSIS UA Spec Grav 1.016 <=1.030 10/15/2013 Normal [facility] Pathology Reports No Data Provided for This Section Diagnostic Reports Report Value Date Source Bone Density-Dual Energy Absorptionmetry EXAM: Bone density study, multiple sites; dual photon absorptiometry DATE: 10/28/2014 at 1142 hours. INDICATION: Screening for osteoporosis. TECHNIQUE: Lumbar spine and left hip bone mineral densities were measured using [employer] System. 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 Heart size normal. SL: 12 03/11/2014 [facility] Consultation Notes No Data Provided for This Section Discharge Summaries No Data Provided for This Section History and Physicals No Data Provided for This Section Vital Signs Vital Sign Value Date Comments Source Systolic (mm Hg) 124 03/11/2014 [facility] Heart Rate 75 03/11/2014 [facility] Respitory Rate 20 03/11/2014 [facility] Diastolic (mm Hg) 78 03/11/2014 [facility] BMI Calculated 28.95 03/11/2014 [facility] Height 172.72 cm 03/11/2014 [facility] Weight 86.364 03/11/2014 [facility] Systolic (mm Hg) 137 03/11/2014 [facility] Diastolic (mm Hg) 84 03/11/2014 [facility] Respitory Rate 18 03/11/2014 [facility] Heart Rate 62 03/11/2014 [facility] Temperature Oral (F) 97.7 F 03/11/2014 [facility] Respitory Rate 18 10/23/2013 [facility] Heart Rate 91 10/23/2013 [facility] Diastolic (mm Hg) 90 10/23/2013 [facility] Systolic (mm Hg) 149 10/23/2013 [facility] Temperature Oral (F) 98.7 F 10/23/2013 [facility] Heart Rate 89 10/23/2013 [facility] Respitory Rate 18 10/23/2013 [facility] Systolic (mm Hg) 138 10/23/2013 [facility] Diastolic (mm Hg) 89 10/23/2013 [facility] Temperature Oral (F) 98.7 F 10/23/2013 [facility] Respitory Rate 18 10/23/2013 [facility] Heart Rate 70 10/23/2013 [facility] Systolic (mm Hg) 139 10/23/2013 [facility] Temperature Oral (F) 98.1 F 10/23/2013 [facility] Diastolic (mm Hg) 89 10/23/2013 [facility] Weight 116.818 10/21/2013 [facility] Height 170.18 cm 10/21/2013 [facility] Weight 116.818 10/21/2013 [facility] Height 170.18 cm 10/15/2013 [facility] Encounters Location Location Details Encounter Type Encounter Number Reason For Visit Attending Provider ADM Date DC Date Status Source [facility] Inpatient [id number] MIKE DON 10/21/2013 10/23/2013 Discharged [facility] [id number] Mamadou Amezcua 03/11/2014 03/11/[address] [facility] [place] [place] Outpatient [facility] [id number] Mike Dno 05/14/2014 05/15/2014 [facility] [id number] Mike Don 10/28/2014 10/29/2014 [facility] Procedures Procedure Code Date Perfomer Comments Source Arthroscopy of knee<sup>1</sup> [id number] [facility] Hernia repair<sup>2</sup> [id number] [facility] Assessment and Plan No Data Provided for This Section Plan of Care No Data Provided for This Section Social History Social History Date Source Social History TypeResponse Smoking Status Former smoker, Type: Cigarettes, Exposure to Tobacco Smoke None, Cigarette Smoking Last 365 Days No, Reg Smoking Cessation Counseling No 03/11/2014 [facility] Social History TypeResponse Smoking Status Former [...]
[2019-08-02 06:55] LABS: BASOPHILS % 0.4 % (0.0-1.0); EOSINOPHILS # (AUTO) 0.1 (0.0-0.4); EOSINOPHILS % 0.6 % (0.0-6.0); HEMATOCRIT 44.5 % (38.2-49.6); HEMOGLOBIN 15.3 g/dL (14.0-18.0); LYMPHOCYTES # (AUTO) 2.7 (1.0-3.2); LYMPHOCYTES % 25.9 % (18.0-39.1); MEAN CORPUSCULAR HEMOGLOBIN 32.3 pg (28-32); MEAN CORPUSCULAR HGB CONC 34.4 g/dL (31-35); MEAN CORPUSCULAR VOLUME 93.9 fL (81-99); MONOCYTES % 9.9 % (4.4-11.3); NEUTROPHILS # (AUTO) 6.5 (2.1-6.9); NEUTROPHILS % 62.8 % (38.7-80.0); PLATELET COUNT 326 x10e3/uL (140-360); RED BLOOD COUNT 4.74 x10e6/uL (4.3-5.7); RED CELL DISTRIBUTION WIDTH 12.1 % (11.7-14.4)
[2019-08-02 07:07] LABS: INR 0.92; PROTHROMBIN TIME 12.8 seconds (11.9-14.5)
[2019-08-02 07:08] LABS: PARTIAL THROMBOPLASTIN TIME 36.9 seconds (23.8-35.5)
[2019-08-02 07:15] LABS: ALANINE AMINOTRANSFERASE 20 IU/L (0-55); ALBUMIN 3.8 g/dL (3.5-5.0); ALBUMIN/GLOBULIN RATIO 1.1 (0.8-2.0); ALKALINE PHOSPHATASE 85 IU/L (40-150); ANION GAP 12.4 mmol/L (8-16); BLOOD UREA NITROGEN 15 mg/dL (7-26); BUN/CREATININE RATIO 13 (6-25); CALCIUM 9.5 mg/dL (8.4-10.2); CARBON DIOXIDE 30 mmol/L (22-29); CHLORIDE 102 mmol/L (98-107); CREATINE KINASE 45 IU/L (30-200); CREATININE, SERUM 1.19 mg/dL (0.72-1.25); EST GLOMERULAR FILTRATION RATE > 60 ML/MIN (60-); GLUCOSE 104 mg/dL (74-118); POTASSIUM 4.4 mmol/L (3.5-5.1); SODIUM 140 mmol/L (136-145)
--- NOTE | 2019-08-02 07:27 | Diagnostic Imaging Report ---
Examination: Single AP view of the chest. COMPARISON: 07/14/2015 INDICATION: Chest pain, shortness of breath DISCUSSION: Lines/tubes: None. Lungs: Lung volumes are low with linear opacities in the bases compatible with subsegmental atelectasis. Pleura: There is no pleural effusion or pneumothorax. Heart and mediastinum: The heart and the mediastinum are unremarkable. Bones and soft tissues: No acute bony abnormalities. Degenerative changes in the thoracic spine. IMPRESSION: 1. Low lung volumes with subsegmental atelectasis in the lung bases. Signed by: Dr. Louis Pa M.D. on 08/02/2019 7:24 AM
[2019-08-02] MEDS ORDERED: SODIUM CHLORIDE 0.9% 1000ML 1,000 ML IV STA (07:52)
[2019-08-02] MEDS: ENOXAPARIN SODIUM INJ 100 MG/ML SYR SC SCH ×2 (08:11→20:20)
--- NOTE | 2019-08-02 09:16 | Diagnostic Imaging Report ---
EXAMINATION: CT of the chest with contrast, PE protocol. TECHNIQUE: Spiral CT images of the chest were performed from the lung apices through the level of the adrenal glands after the IV administration of 100 cc of [id number] Thin section reconstructions were obtained with special concentration on the pulmonary arteries. COMPARISON: Chest radiograph 08/02/2019 CLINICAL HISTORY:Shortness of breath, knee surgery 5 days ago DISCUSSION: Vasculature: Filling defects in the right upper lobe pulmonary artery (series 2 image 39). Similar filling defects are also noted within the medial segmental artery of the right middle lobe (series 2 image 61), as well as multiple segmental pulmonary arteries of the right lower lobe, for example on series 2 image 56, 58, and 64. The pulmonary outflow tract is of normal caliber. No right ventricular dilatation or intraventricular septal bowing. No ectasia or aneurysmal dilatation of the thoracic aorta. Lungs: Linear and groundglass opacities in the lower lobes compatible with subsegmental atelectasis. No consolidation or bronchiectasis. Trachea, mainstem bronchi, and lobar and segmental bronchi are patent. Airways: <The major airways are clear.> Pleura: <There is no evidence of pleural effusion or pneumothorax.> Heart and mediastinum: No axillary, hilar, or mediastinal lymphadenopathy. Abdomen: Visualized portions of the liver, spleen, pancreas, adrenals, and gallbladder are unremarkable. Large nonobstructing left upper pole renal calculus partially visualized. Postsurgical changes of the proximal stomach. Bones and soft tissues: No osseous destructive lesions. Posttraumatic deformity of the right clavicle. Multilevel degenerative disc changes of the thoracic spine. IMPRESSION: Multiple segmental pulmonary emboli involving all 3 lobes of the right lung as described above. No CT evidence of right heart strain. Low lung volumes with subsegmental atelectasis in the dependent lower lobes. Nonobstructing left upper pole renal calculus partially visualized. Findings were discussed by telephone with Dr. Flanagan of the emergency center at 0910 hours on 08/02/2019. Signed by: Dr. Louis Pa M.D. on 08/02/2019 9:12 AM
[2019-08-02] MEDS ORDERED: ONDANSETRON HCL INJ 2MG/ML 2ML 2 MG/ML VIAL IV PRN (09:45)
--- OUTSIDE RECORDS SUMMARY | 2019-08-02 09:59 | XMS REPORT | Continuity of Care Document ---
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 Hiatal hernia (disorder) Resolved Problem 10/31/2014 [facility], [facility] [place],[facility], [facility] Hypertensive disorder, systemic arterial (disorder) Resolved Problem 10/31/2014 [facility], [facility] [place],[facility], [facility] Morbid obesity (disorder) Resolved Problem 10/31/2014 [facility], [facility] [place],[facility] Obstructive sleep apnea syndrome (disorder) Resolved Problem 10/31/2014 [facility], [facility] [place],[facility], [facility] Osteoarthritis (disorder) Resolved Problem 10/31/2014 [facility], [facility] [place],[facility], [facility] Reflux (finding) Resolved Problem 10/31/2014 [facility], [facility] [place],[facility], [facility] MORBID OBESITY Active [facility] Medications Medication Details Route Status Patient Instructions Ordering Provider Order Date Source Nitroglycerin 0.4 MG Sublingual Tablet 0.4 mg=1 tab, SL, Q5Min, Chest pain, # 100 tab, 0 Refill(s) Active 03/11/2014 [facility] Aspirin 81 MG Chewable Tablet 81 mg, 1 tab, Route: PO, Drug form: CHEWTAB, ONCE, Dosing Weight 86.364, kg, Priority: STAT, Start date: 03/11/14 15:07:00, Stop date: 03/11/14 15:07:00Notes: Take with food. Inactive 03/11/2014 [facility] Saline Flush 0.9% 5 ml, Route: IVP, Drug Form: INJ, Dosing Weight 86.364, kg, PRN, PRN Line Flush, Start date: 03/11/14 15:07:00, Duration: 30 day, Stop date: 04/10/14 15:06:00Notes: (Same as: BD Posiflush) Inactive 03/11/2014 [facility] docusate sodium 150 mg/15 mL oral liquid 100 mg=10 ml, PO, Daily, # 240 ml, 0 Refill(s) Active [facility] 10/23/2013 [facility] acetaminophen-hydrocodone 325 mg-7.5 mg/15 mL oral solution 15 ml, PO, Q4H, Pain, # 420 mL, 0 Refill(s) Active [facility] 10/23/2013 [facility] acetaminophen-hydrocodone 300 mg-10 mg/15 mL oral liquid 15 mL, Route: PO, Drug Form: SOLN, Dosing Weight 116.818, kg, Q4H, PRN Pain, Start date: 10/22/13 9:32:00, Duration: 30 day, Stop date: 11/21/13 9:31:00Do not exceed 4gm/day of acetaminophen. (Same as: Zolvit) No Longer Active [facility] 10/22/2013 [facility] heparin 5,000 unit, 1 mL, Route: SUB-Q, Drug form: INJ, Q8H, Start date: 10/22/13 8:00:00, Duration: 30 day, Stop date: 11/21/13 0:00:00porcine heparin No Longer Active [facility] [address] 10/22/2013 [facility] Mefoxin 2 gm, Route: IVPB, Drug form: INJ, ABXQ8H, Start date: 10/21/13 18:30:00, Duration: 2 doses or times, Stop date: 10/22/13 2:30:00(Same As: Mefoxin) No Longer Active [facility] [address] 10/22/2013 [facility] ketorolac 30 mg/mL injectable solution 30 mg, 1 mL, Route: IV, Drug form: INJ, Q6H, Dosing Weight 116.818, kg, Start date: 10/21/13 18:00:00, Duration: 4 day, Stop date: 10/25/13 12:00:00(Same as:Toradol) IV bolus must be given >15 seconds. Give IM administration slowly and deeply into the muscle. Not for use > 4 days No Longer Active [place] 10/22/2013 [facility] Ofirmev 1,000 mg, 100 mL, Route: IV, Drug form: INJ, Q6H, Start date: 10/21/13 18:00:00, Duration: 48 hr, Stop date: 10/25/13 12:00:00Infuse over 15 minutes Do not exceed 4gm/day of acetaminophen No Longer Active [facility] [address] 10/22/2013 [facility] Protonix 40 mg, Route: IVP, Drug form: INJ, Before Dinner, Start date: 10/21/13 16:30:00, Duration: 30 day, Stop date: 11/19/13 16:30:00For IV push reconstitute with 10 ml 0.9% sodium chloride and push over 2 minutes. (Same as: Protonix) No Longer Active [facility] [address] 10/21/2013 [facility] Dilaudid 0.2 mg, 0.1 mL, Route: IV, Drug form: INJ, Q4H, PRN Pain, Start date: 10/21/13 15:53:00, Duration: 30 day, Stop date: 11/20/13 15:52:00Same as: Dilaudid No Longer Active [facility] 10/21/2013 [facility] Zofran 4 mg, 2 mL, Route: IVP, Drug form: INJ, Q6H, PRN Nausea & Vomiting, Start date: 10/21/13 15:51:00, Duration: 30 day, Stop date: 11/20/13 15:50:00(Same as: Zofran) No Longer Active [facility] [address] 10/21/2013 [facility] Lactated Ringers Injection IV 1,000 mL 1,000 mL, Rate: 100 ml/hr, Infuse over: 10 hr, Route: IV, Dosing Weight 116.818 kg, Total Volume: 1,000, Start date: 10/21/13 15:42:00, Stop date: 11/20/13 15:41:00 No Longer Active [facility] 10/21/2013 [facility] acetaminophen-hydrocodone 300 mg-10 mg/15 mL oral liquid 15 mL, Route: PO, Dosing Weight 116.818, kg, ONCE, Start date: 10/21/13 11:11:00, Stop date: 10/21/13 11:11:00 Inactive [place] 10/21/2013 [facility] hydromorphone 0.5 mg, Route: IVP, Q5Min, Dosing Weight 116.818, kg, PRN Pain Score 7-10, Start date: 10/21/13 11:11:00, Duration: 4 doses or times, Stop date: Limited # of times Inactive [place] 10/21/2013 [facility] flumazenil 0.2 mg, Route: IVP, PRN, Dosing Weight 116.818, kg, PRN Benzodiazepine Reversal, Initial dose, Start date: 10/21/13 11:11:00, Duration: 30 day, Stop date: 11/20/13 11:10:00 Inactive [place] 10/21/2013 [facility] metoprolol 1 mg, Route: IVP, Q5Min, Dosing Weight 116.818, kg, PRN Other -See Comment, Start date: 10/21/13 11:11:00, Duration: 5 doses or times, Stop date: Limited # of times Inactive [place] 10/21/2013 [facility] labetalol 10 mg, Route: IVP, Q5Min, Dosing Weight 116.818, kg, PRN Elevated BP, Start date: 10/21/13 11:11:00, Duration: 5 doses or times, Stop date: Limited # of times Inactive [place] 10/21/2013 [facility] naloxone 0.04 mg, Route: IVP, Q2MIN, Dosing Weight 116.818, kg, PRN Narcotic Reversal, Start date: 10/21/13 11:11:00, Duration: 8 doses or times, Stop date: Limited # of times Inactive [place] 10/21/2013 [facility] promethazine 6.25 mg, Route: IVPB, ONCE, Dosing Weight 116.818, kg, PRN Nausea & Vomiting, Start date: 10/21/13 11:11:00 Inactive [place] 10/21/2013 [facility] OXYcodone 5 mg/5 mL oral solution 5 mg, Route: NG, Q4H, Dosing Weight 116.818, kg, PRN Pain Score 4-6, Start date: 10/21/13 11:11:00, Duration: 30 day, Stop date: 11/20/13 11:10:00 Inactive [place] 10/21/2013 [facility] ondansetron 4 mg, Route: IVP, ONCE, Dosing Weight 116.818, kg, PRN Nausea & Vomiting, Start date: 10/21/13 11:11:00 Inactive [place] 10/21/2013 [facility] bupivacaine liposome 20 mL, Route: InFILtration(local), [...] each (total dose=30 mL [266 mg]) Inactive [place] 10/21/2013 [facility] heparin 5,000 unit, 1 mL, Route: SUB-Q, Drug form: INJ, PRE OP, Priority: NOW, Start date: 10/21/13 8:47:00, Duration: 1 doses or times, Stop date: 10/22/13 0:00:00porcine heparin Inactive [place] 10/21/2013 [facility] scopolamine 1 patch, Route: TOP, Drug form: ERFILM, PRE OP, Priority: NOW, Start date: 10/21/13 8:46:00, Duration: 1 doses or times, Stop date: 10/22/13 0:00:00Change patch every 72 hours (Same as: Transderm-S coping machine assembler) Inactive [place] 10/21/2013 [facility] Mefoxin 2 gm, Route: IVPB, Drug form: INJ, PRE OP, Priority: NOW, Start date: 10/21/13 8:45:00, Duration: 1 doses or times, Stop date: 10/22/13 0:00:00(Same As: Mefoxin) Inactive [place] 10/21/2013 [facility] Fish Oil 1000 mg oral capsule 0 Refill(s) No Longer Active 10/16/2013 [facility] calcium-vitamin D 250 mg-125 units oral tablet 1 tab, PO, TID, # 90 tab, 0 Refill(s) Active 10/16/2013 [facility] Vitamin B12 100 mcg oral tablet 100 microgram=1 tab, PO, Daily, # 90 tab, 0 Refill(s) Active 10/16/2013 [facility] metoprolol tartrate 100 mg oral tablet 100 mg=1 tab, PO, BID, # 180 tab, 0 Refill(s) No Longer Active 10/16/2013 [facility] Allergies, Adverse Reactions, Alerts No Known Medication Allergies Immunizations No Data Provided for This Section Results Order Name Results Value Reference Range Date Interpretation Comments Source CARDIAC ENZYMES CK MB 0.8 0.5 - 3.6 03/11/2014 [facility] CARDIAC ENZYMES Total CK 108 12 - 191 03/11/2014 [facility] CARDIAC ENZYMES Troponin-I <0.015 ng/mL 0.00 - 0.40 03/11/2014 [facility] CARDIAC ENZYMES CK-MB INDEX 0.7 0.0 - 2.5 03/11/2014 [facility] CHEM PANEL eGFR 106 03/11/2014 <sup>1</sup>Result [...] should be multiplied by the estimated BMI. [facility] CHEM PANEL AGAP 7.0 10.0 - 20.0 03/11/2014 [facility] CHEM PANEL Calcium Lvl 8.5 8.5 - 10.5 03/11/2014 [facility] CHEM PANEL Chloride Lvl 109 95 - 109 03/11/2014 [facility] CHEM PANEL CO2 30 24 - 32 03/11/2014 [facility] CHEM PANEL Creatinine Lvl 0.9 0.5 - 1.4 03/11/2014 [facility] CHEM PANEL Sodium Lvl 142 135 - 145 03/11/2014 [facility] CHEM PANEL Potassium Lvl 4.0 3.5 - 5.1 03/11/2014 [facility] CHEM PANEL Glucose Lvl 115 70 - 99 03/11/2014 <sup>2</sup>Interpretive Data: Adult reference range values reflect the clinical guidelines
of the [place] [employer]. [facility] CHEM PANEL BUN 8 7 - 22 03/11/2014 [facility] HEMATOLOGY Platelet 297 133 - 450 03/11/2014 [facility] HEMATOLOGY MPV 8.3 7.4 - 10.4 03/11/2014 [facility] HEMATOLOGY Hct 39.1 42.0 - 54.0 03/11/2014 [facility] HEMATOLOGY MCV 94.4 80.0 - 94.0 03/11/2014 [facility] HEMATOLOGY MCH 32.3 27.0 - 31.0 03/11/2014 [facility] HEMATOLOGY Hgb 13.4 14.0 - 18.0 03/11/2014 [facility] HEMATOLOGY RBC 4.14 4.70 - 6.10 03/11/2014 [facility] HEMATOLOGY MCHC 34.2 32.0 - 36.0 03/11/2014 [facility] HEMATOLOGY RDW 14.1 11.5 - 14.5 03/11/2014 [facility] HEMATOLOGY WBC 7.5 3.7 - 10.4 03/11/2014 [facility] HEMATOLOGY Eosinophils # 0.0 0.0 - 0.5 03/11/2014 [facility] HEMATOLOGY Basophils # 0.1 0.0 - 0.2 03/11/2014 [facility] HEMATOLOGY Basophils 1.4 0.0 - 1.0 03/11/2014 [facility] HEMATOLOGY Monocytes # 0.4 0.0 - 0.8 03/11/2014 [facility] HEMATOLOGY Segs-Bands # 4.1 1.5 - 8.1 03/11/2014 [facility] HEMATOLOGY Monocytes 5.7 2.0 - 12.0 03/11/2014 [facility] HEMATOLOGY Eosinophils 0.6 0.0 - 4.0 03/11/2014 [facility] HEMATOLOGY Lymphocytes # 2.8 1.0 - 5.5 03/11/2014 [facility] HEMATOLOGY Segs 54.9 45.0 - 75.0 03/11/2014 [facility] HEMATOLOGY Lymphocytes 37.4 20.0 - 40.0 03/11/2014 [facility] CHEMISTRY Magnesium Lvl 1.9 1.8 - 2.4 10/23/2013 Normal [facility] CHEMISTRY Phosphorus 2.3 2.5 - 4.5 10/23/2013 LOW [facility] CHEMISTRY eGFR 107 10/23/2013 <sup>1</sup>Result Comment: [...] should be multiplied by the estimated BMI. [facility] CHEMISTRY Calcium Lvl 8.3 8.5 - 10.5 10/23/2013 LOW [facility] CHEMISTRY CO2 22 24 - 32 10/23/2013 LOW [facility] CHEMISTRY Chloride Lvl 103 95 - 109 10/23/2013 Normal [facility] CHEMISTRY Potassium Lvl 3.9 3.5 - 5.1 10/23/2013 Normal [facility] CHEMISTRY Sodium Lvl 138 135 - 145 10/23/2013 Normal [facility] CHEMISTRY Creatinine Lvl 0.9 0.5 - 1.4 10/23/2013 Normal [facility] CHEMISTRY BUN 9 7 - 22 10/23/2013 Normal [facility] CHEMISTRY Glucose Lvl 69 70 - 99 10/23/2013 LOW <sup>4</sup>Interpretive Data: Adult reference range values reflect the clinical guidelines
of the [place] [employer]. [facility] CHEMISTRY AGAP 16.9 10.0 - 20.0 10/23/2013 Normal [facility] HEMATOLOGY Platelet 330 133 - 450 10/23/2013 Normal [facility] HEMATOLOGY MPV 8.4 7.4 - 10.4 10/23/2013 Normal [facility] HEMATOLOGY MCHC 33.1 32.0 - 36.0 10/23/2013 Normal [facility] HEMATOLOGY RDW 12.5 11.5 - 14.5 10/23/2013 Normal [facility] HEMATOLOGY MCV 94.5 80.0 - 94.0 10/23/2013 [facility] HEMATOLOGY MCH 31.3 27.0 - 31.0 10/23/2013 [facility] HEMATOLOGY Hgb 13.2 14.0 - 18.0 10/23/2013 LOW [facility] HEMATOLOGY Hct 39.7 42.0 - 54.0 10/23/2013 LOW [facility] HEMATOLOGY RBC X 10x6 4.20 4.70 - 6.10 10/23/2013 LOW [facility] HEMATOLOGY WBC X 10x3 8.3 3.7 - 10.4 10/23/2013 Normal [facility] HEMATOLOGY Basophils # 0.1 0.0 - 0.2 10/23/2013 Normal [facility] HEMATOLOGY Segs-Bands # 4.6 1.5 - 8.1 10/23/2013 Normal [facility] HEMATOLOGY Eosinophils 0.4 0.0 - 4.0 10/23/2013 Normal [facility] HEMATOLOGY Lymphocytes # 2.8 1.0 - 5.5 10/23/2013 Normal [facility] HEMATOLOGY Monocytes # 0.8 0.0 - 0.8 10/23/2013 Normal [facility] HEMATOLOGY Basophils 0.7 0.0 - 1.0 10/23/2013 Normal [facility] HEMATOLOGY Segs 55.4 45.0 - 75.0 10/23/2013 Normal [facility] HEMATOLOGY Monocytes 10.2 2.0 - 12.0 10/23/2013 Normal [facility] HEMATOLOGY Lymphocytes 33.3 20.0 - 40.0 10/23/2013 Normal [facility] CHEMISTRY Phosphorus 4.3 2.5 - 4.5 10/22/2013 Normal [facility] CHEMISTRY Magnesium Lvl 2.0 1.8 - 2.4 10/22/2013 Normal [facility] CHEMISTRY eGFR 107 10/22/2013 <sup>2</sup>Result Comment: [...] should be multiplied by the estimated BMI. [facility] CHEMISTRY Chloride Lvl 103 95 - 109 10/22/2013 Normal [facility] CHEMISTRY BUN 10 7 - 22 10/22/2013 Normal [facility] CHEMISTRY Glucose Lvl 93 70 - 99 10/22/2013 Normal <sup>5</sup>Interpretive Data: Adult reference range values reflect the clinical guidelines
of the [place] [employer]. [facility] CHEMISTRY Sodium Lvl 138 135 - 145 10/22/2013 Normal [facility] CHEMISTRY Potassium Lvl 4.3 3.5 - 5.1 10/22/2013 Normal [facility] CHEMISTRY Creatinine Lvl 0.9 0.5 - 1.4 10/22/2013 Normal [facility] CHEMISTRY Calcium Lvl 8.5 8.5 - 10.5 10/22/2013 Normal [facility] CHEMISTRY CO2 24 24 - 32 10/22/2013 Normal [facility] CHEMISTRY AGAP 15.3 10.0 - 20.0 10/22/2013 Normal [facility] HEMATOLOGY Monocytes # 0.9 0.0 - 0.8 10/22/2013 HI [facility] HEMATOLOGY Lymphocytes # 2.6 1.0 - 5.5 10/22/2013 Normal [facility] HEMATOLOGY Segs-Bands # 6.4 1.5 - 8.1 10/22/2013 [facility] HEMATOLOGY Basophils 0.2 0.0 - 1.0 10/22/2013 [facility] HEMATOLOGY Eosinophils 0.1 0.0 - 4.0 10/22/2013 [facility] HEMATOLOGY Monocytes 9.0 2.0 - 12.0 10/22/2013 [facility] HEMATOLOGY Lymphocytes 26.1 20.0 - 40.0 10/22/2013 [facility] HEMATOLOGY Segs 64.6 45.0 - 75.0 10/22/2013 [facility] HEMATOLOGY MPV 8.4 7.4 - 10.4 10/22/2013 [facility] HEMATOLOGY Platelet 345 133 - 450 10/22/2013 [facility] HEMATOLOGY RDW 12.8 11.5 - 14.5 10/22/2013 [facility] HEMATOLOGY MCHC 35.0 32.0 - 36.0 10/22/2013 [facility] HEMATOLOGY MCH 32.8 27.0 - 31.0 10/22/2013 HI [facility] HEMATOLOGY MCV 93.9 80.0 - 94.0 10/22/2013 [facility] HEMATOLOGY Hct 38.2 42.0 - 54.0 10/22/2013 [facility] HEMATOLOGY Hgb 13.3 14.0 - 18.0 10/22/2013 [facility] HEMATOLOGY RBC X 10x6 4.07 4.70 - 6.10 10/22/2013 [facility] HEMATOLOGY WBC X 10x3 9.9 3.7 - 10.4 10/22/2013 [facility] BLOOD BANK RESULTS ABO/Rh O POS 10/21/2013 [facility] BLOOD BANK RESULTS Antibody Scrn Negative (10/21/2013 08:35:00) 10/21/2013 [facility] CHEMISTRY eGFR 94 10/15/2013 <sup>3</sup>Result Comment: The [...] should be multiplied by the estimated BMI. [facility] CHEMISTRY ALANINE AMINOTRANSFERASE 150 0 - 65 10/15/2013 [facility] CHEMISTRY Albumin Lvl 4.0 3.5 - 5.0 10/15/2013 Normal [facility] CHEMISTRY Total Protein 7.7 6.4 - 8.4 10/15/2013 Normal [facility] CHEMISTRY ASPARTATE TRANSAMINASE 71 0 - 37 10/15/2013 [facility] CHEMISTRY Sodium Lvl 139 135 - 145 10/15/2013 Normal [facility] CHEMISTRY Creatinine Lvl 1.0 0.5 - 1.4 10/15/2013 Normal [facility] CHEMISTRY BUN 10 7 - 22 10/15/2013 Normal [facility] CHEMISTRY Glucose Lvl 89 70 - 99 10/15/2013 Normal <sup>6</sup>Interpretive Data: Adult reference range values reflect the clinical guidelines
of the [place] [employer]. [facility] CHEMISTRY Alk Phos 97 39 - 136 10/15/2013 Normal [facility] CHEMISTRY Bili Total 0.5 0.2 - 1.3 10/15/2013 Normal [facility] CHEMISTRY CO2 26 24 - 32 10/15/2013 Normal [facility] CHEMISTRY Potassium Lvl 4.4 3.5 - 5.1 10/15/2013 Normal [facility] CHEMISTRY Calcium Lvl 9.1 8.5 - 10.5 10/15/2013 Normal [facility] CHEMISTRY Chloride Lvl 103 95 - 109 10/15/2013 Normal [facility] CHEMISTRY Globulin 3.7 2.0 - 4.0 10/15/2013 Normal [facility] CHEMISTRY B/C Ratio 10 6 - 25 10/15/2013 Normal [facility] CHEMISTRY AGAP 14.4 10.0 - 20.0 10/15/2013 Normal [facility] CHEMISTRY A/G Ratio 1.1 0.7 - 1.6 10/15/2013 Normal [facility] HEMATOLOGY MPV 8.3 7.4 - 10.4 10/15/2013 Normal [facility] HEMATOLOGY RDW 13.0 11.5 - 14.5 10/15/2013 Normal [facility] HEMATOLOGY MCHC 34.5 32.0 - 36.0 10/15/2013 Normal [facility] HEMATOLOGY Platelet 312 133 - 450 10/15/2013 Normal [facility] HEMATOLOGY WBC X 10x3 7.9 3.7 - 10.4 10/15/2013 Normal [facility] HEMATOLOGY MCV 93.3 80.0 - 94.0 10/15/2013 [facility] HEMATOLOGY MCH 32.2 27.0 - 31.0 10/15/2013 [facility] HEMATOLOGY Hct 40.8 42.0 - 54.0 10/15/2013 LOW [facility] HEMATOLOGY RBC X 10x6 4.37 4.70 - 6.10 10/15/2013 LOW [facility] HEMATOLOGY Hgb 14.1 14.0 - 18.0 10/15/2013 Normal [facility] HEMATOLOGY Basophils # 0.1 0.0 - 0.2 10/15/2013 Normal [facility] HEMATOLOGY Eosinophils # 0.1 0.0 - 0.5 10/15/2013 [facility] HEMATOLOGY Eosinophils 1.7 0.0 - 4.0 10/15/2013 [facility] HEMATOLOGY Segs-Bands # 3.8 1.5 - 8.1 10/15/2013 [facility] HEMATOLOGY Basophils 0.8 0.0 - 1.0 10/15/2013 [facility] HEMATOLOGY Monocytes # 0.9 0.0 - 0.8 10/15/2013 [facility] HEMATOLOGY Lymphocytes # 3.1 1.0 - 5.5 10/15/2013 Normal [facility] HEMATOLOGY Lymphocytes 38.6 20.0 - 40.0 10/15/2013 [facility] HEMATOLOGY Segs 47.6 45.0 - 75.0 10/15/2013 [facility] HEMATOLOGY Monocytes 11.3 2.0 - 12.0 10/15/2013 [facility] URINALYSIS UA Urobilinogen <=1.0 mg/dL 0.1 - 1.0 10/15/2013 [facility] URINALYSIS UA Sq Epi None Seen 10/15/2013 [facility] URINALYSIS UA Nitrite Negative (10/15/2013 14:00:00) Negative 10/15/2013 Normal [facility] URINALYSIS UA Mucus Moderate /LPF None Seen 10/15/2013 ABN [facility] URINALYSIS UA Leuk Est Negative (10/15/2013 14:00:00) Negative 10/15/2013 Normal [facility] URINALYSIS UA Bili Negative *NA* (10/15/2013 14:00:00) Negative 10/15/2013 [facility] URINALYSIS UA Blood Negative (10/15/2013 14:00:00) Negative 10/15/2013 Normal [facility] URINALYSIS UA Turbidity Clear (10/15/2013 14:00:00) Clear 10/15/2013 Normal [facility] URINALYSIS UA Color Yellow *NA* (10/15/2013 14:00:00) Yellow 10/15/2013 [facility] URINALYSIS UA Protein 10 mg/dL Negative 10/15/2013 ABN [facility] URINALYSIS UA pH 6.0 5.0 - 8.0 10/15/2013 Normal [facility] URINALYSIS UA Glucose Negative mg/dL Negative 10/15/2013 [facility] URINALYSIS UA Ketones Negative mg/dL Negative 10/15/2013 [facility] URINALYSIS UA Spec Grav 1.016 <=1.030 10/15/2013 Normal [facility] Pathology Reports No Data Provided for This Section Diagnostic Reports Report Value Date Source Bone Density-Dual Energy Absorptionmetry EXAM: Bone density study, multiple sites; dual photon absorptiometry DATE: 10/28/2014 at 1142 hours. INDICATION: Screening for osteoporosis. TECHNIQUE: Lumbar spine and left hip bone mineral densities were measured using [employer]. FINDINGS: Lumbar spine: L1-L4 average bone [...] Comparison Exam: Chest x-ray 03/11/2014 Discussion: On can cutter view, there are no dilated loops of [...] effusion. Heart size normal. SL: 12 03/11/2014 [facility] Consultation Notes No Data Provided for This Section Discharge Summaries No Data Provided for This Section History and Physicals No Data Provided for This Section Vital Signs Vital Sign Value Date Comments Source Systolic (mm Hg) 124 03/11/2014 [facility] Heart Rate 75 03/11/2014 [facility] Respitory Rate 20 03/11/2014 [facility] [facility] Diastolic (mm Hg) 78 03/11/2014 [facility] BMI Calculated 28.95 03/11/2014 [facility] Height 172.72 cm 03/11/2014 [facility] Weight 86.364 03/11/2014 [facility] Systolic (mm Hg) 137 03/11/2014 [facility] Diastolic (mm Hg) 84 03/11/2014 [facility] Respitory Rate 18 03/11/2014 [facility] Heart Rate 62 03/11/2014 [facility] Temperature Oral (F) 97.7 F 03/11/2014 [facility] Respitory Rate 18 10/23/2013 [facility] Heart Rate 91 10/23/2013 [facility] Diastolic (mm Hg) 90 10/23/2013 [facility] Systolic (mm Hg) 149 10/23/2013 [facility] Temperature Oral (F) 98.7 F 10/23/2013 [facility] Heart Rate 89 10/23/2013 [facility] Respitory Rate 18 10/23/2013 [facility] Systolic (mm Hg) 138 10/23/2013 [facility] Diastolic (mm Hg) 89 10/23/2013 [facility] Temperature Oral (F) 98.7 F 10/23/2013 [facility] Respitory Rate 18 10/23/2013 [facility] Heart Rate 70 10/23/2013 [facility] Systolic (mm Hg) 139 10/23/2013 [facility] Temperature Oral (F) 98.1 F 10/23/2013 [facility] Diastolic (mm Hg) 89 10/23/2013 [facility] Weight 116.818 10/21/2013 [facility] Height 170.18 cm 10/21/2013 [facility] Weight 116.818 10/21/2013 [facility] Height 170.18 cm 10/15/2013 [facility] Encounters Location Location Details Encounter Type Encounter Number Reason For Visit Attending Provider ADM Date DC Date Status Source [facility] Inpatient [id number] MIKE DON 10/21/2013 10/23/2013 Discharged [facility] [id number] Mamadou Amezcua 03/11/2014 03/11/2014 [facility] [place] [facility] [id number] Mike Don 05/14/2014 05/15/2014 [facility] [place] [id number] Mike Don 10/28/2014 10/29/2014 [facility] Procedures Procedure Code Date Perfomer Comments Source Arthroscopy of knee<sup>1</sup> [id number] [facility] Hernia repair<sup>2</sup> [id number] [facility] Assessment and Plan No Data Provided for This Section Plan of Care No Data Provided for This Section Social History Social History Date Source Social History TypeResponse Smoking Status Former smoker, Type: Cigarettes, Exposure to Tobacco Smoke None, Cigarette Smoking Last 365 Days No, Reg Smoking Cessation Counseling No 03/11/2014 [facility] Social History TypeResponse Smoking Status Former [...]
--- NOTE | 2019-08-02 12:15 | NUR ---
Received patient, lying in bed with eyes open. Respiration even and unlabored without SOB. at bedside. C/O chest pain levelm 6 on scale 0-10. Patient refused morphine.
[2019-08-02 12:20] VITALS: BP 137/78
[2019-08-02 12:23] VITALS: BP 137/78
[2019-08-02] MEDS ORDERED: SODIUM CHLORIDE 0.9% 50ML 50 ML ONE (12:30)
[2019-08-02] MEDS ORDERED: IOPAMIDOL 370 MG/ML 200 ML INFUS..BTL INJ ONE (12:30)
[2019-08-02 12:41] LABS: CREATINE KINASE 35 IU/L (30-200)
[2019-08-02] MEDS: MORPHINE SULFATE INJ 4 MG/ML INJ 1ML IV PRN ×2 (14:18→20:21)
[2019-08-02 15:57] VITALS: BP 129/81
[2019-08-02 17:26] VITALS: BP 129/81
--- NOTE | 2019-08-02 19:12 | NUR ---
Report given to overnight babysitter. Patient lying in bed with eyes open. Family members at bedside. Respiration even and unlabored without SOB. Call light in reach.
[2019-08-02 20:37] VITALS: BP 143/96
[2019-08-02 20:54] LABS: CREATINE KINASE 33 IU/L (30-200)
[2019-08-02 21:00] VITALS: BP 143/96
[2019-08-03] VITALS (8 sets, daily range): BP systolic 122–142; BP diastolic 74–93
[2019-08-03] MEDS: MORPHINE SULFATE INJ 4 MG/ML INJ 1ML IV PRN ×7 (04:00→22:22)
[2019-08-03 06:33] LABS: BASOPHILS % 0.4 % (0.0-1.0); EOSINOPHILS # (AUTO) 0.1 (0.0-0.4); EOSINOPHILS % 1.1 % (0.0-6.0); HEMATOCRIT 40.3 % (38.2-49.6); HEMOGLOBIN 13.7 g/dL (14.0-18.0); LYMPHOCYTES # (AUTO) 1.7 (1.0-3.2); LYMPHOCYTES % 17.9 % (18.0-39.1); MEAN CORPUSCULAR HEMOGLOBIN 32.5 pg (28-32); MEAN CORPUSCULAR VOLUME 95.5 fL (81-99); MONOCYTES # (AUTO) 0.9 (0.2-0.8); MONOCYTES % 9.4 % (4.4-11.3); NEUTROPHILS # (AUTO) 6.9 (2.1-6.9); NEUTROPHILS % 70.9 % (38.7-80.0); PLATELET COUNT 290 x10e3/uL (140-360); RED BLOOD COUNT 4.22 x10e6/uL (4.3-5.7); RED CELL DISTRIBUTION WIDTH 12.2 % (11.7-14.4)
[2019-08-03 06:43] LABS: ALANINE AMINOTRANSFERASE 18 IU/L (0-55); ALBUMIN 3.2 g/dL (3.5-5.0); ALBUMIN/GLOBULIN RATIO 0.9 (0.8-2.0); ALKALINE PHOSPHATASE 68 IU/L (40-150); ANION GAP 11.3 mmol/L (8-16); BLOOD UREA NITROGEN 10 mg/dL (7-26); BUN/CREATININE RATIO 10 (6-25); CALCIUM 9.2 mg/dL (8.4-10.2); CARBON DIOXIDE 29 mmol/L (22-29); CHLORIDE 103 mmol/L (98-107); CHOL/HDL RATIO 3.1 (3.9-4.7); CHOLESTEROL 143 MD/DL (0-199); CREATININE, SERUM 0.97 mg/dL (0.72-1.25); EST GLOMERULAR FILTRATION RATE > 60 ML/MIN (60-); GLUCOSE 93 mg/dL (74-118); HDL CHOLESTEROL 46 MG/DL (40-60); LDL CHOLESTEROL 81 MG/DL (60-130); POTASSIUM 4.3 mmol/L (3.5-5.1); SODIUM 139 mmol/L (136-145); TRIGLYCERIDES 78 MG/DL (0-149)
--- NOTE | 2019-08-03 07:12 | NUR ---
Received patient lying in bed with eyes closed. Family member at bedside. Respiration even and unlabored without SOB. Call light in reach.
[2019-08-03] MEDS: ENOXAPARIN SODIUM INJ 100 MG/ML SYR SC SCH (08:14)
[2019-08-03] MEDS: RIVAROXABAN 15 MG TABLET PO SCH ×2 (09:15→16:42)
--- NOTE | 2019-08-03 11:08 | History and Physical ---
CHIEF COMPLAINT: The is a 43-year-old gentleman with a history of shortness of breath. HISTORY OF PRESENTING ILLNESS: This is a 43-year-old gentleman who came into the hospital with acute shortness of breath and chest pain. The patient had a knee surgery, arthroscopic for meniscal tear on the 15. The patient the day before yesterday notices some calf pain and started walking on it. Yesterday morning, the patient woke up with severe shortness of breath and also pleuritic chest pain, 10/10, constant, came to the emergency room, was found to have a pulmonary embolism. The patient was admitted for further therapy. PAST MEDICAL HISTORY: The patient has a history of reflux esophagitis, otherwise none. SURGICAL HISTORY: The patient also had surgical history of recent knee surgery and also has a history of taking pantoprazole. ALLERGIES: NO DRUG ALLERGIES NOTED. SOCIAL HISTORY: No smoking, occasional EtOH, social drinker. FAMILY HISTORY: Noncontributory. REVIEW OF SYSTEMS: Positive for shortness of breath. Positive for chest pain. No nausea or vomiting. Positive for the reflux. No esophagitis. No diplopia. No blurry vision. No abdominal pain either. PHYSICAL EXAMINATION: VITAL SIGNS: Temperature is 98.1, pulse 63, respirations 16, blood pressure is 122/80, pulse oximeter of 98%. HEENT: Normocephalic, atraumatic. Pupils are reactive to light and accommodation. CVS: S1, S2 normal. Regular rate and rhythm. ABDOMEN: Nontender, nondistended. Left lower extremity shaven. Positive for surgical trocar wound on the left knee. EXTREMITIES: No edema. LABORATORY DATA: Initial PTT was 36.9. D-dimer was 3310. Chemistry shows sodium 139, potassium 4.3, BUN of 10, creatinine 0.97. Troponins have been negative. Cholesterol, triglycerides 78, cholesterol 143, LDL of 81. Coags have been as noted above. IMAGING STUDIES: CT scan of the chest shows multiple segmental pulmonary emboli involving all three lobes of the right lung as described above. No CT evidence of right heart strain. Low lung volumes with subsegmental atelectasis in definite lower lobes, nonobstructive left upper lobe, renal calculi partially visualized. ASSESSMENT: This is a 43-year-old gentleman with. 1. History of PE, status post knee surgery with also history of leg pain. 2. History of reflux esophagitis. PLAN: 1. The patient has been anticoagulated with enoxaparin 80 mg q.12 hours. We will switch the patient on to Xarelto 15 mg twice a day for 21 days. The patient and have been given instruction to ask his insurance company if they will be covered or switch to another NOAC. 2. Do coagulation studies on the patient. 3. Can be discharged soon depending on the patient's respiratory status. Further recommendation per clinical course. We will continue to monitor the patient and the patient has been told D-dimer followup is very important for him. MD YOLANDA Joseph/MODL /[id number]
[2019-08-03] MEDS ORDERED: ACETAMINOPHEN 325 MG TAB PO PRN (12:00)
[2019-08-03] MEDS ORDERED: ACETAMINOPHEN 325 MG TAB ONE (12:02)
--- NOTE | 2019-08-03 19:01 | NUR ---
Report given to night nurse. Respiration even and unlabored without SOB.
--- NOTE | 2019-08-03 22:52 | NUR ---
Paged Dr. Patel for orders.
--- NOTE | 2019-08-03 23:00 | NUR ---
Received orders from Dr. Patel.
[2019-08-04] VITALS (7 sets, daily range): BP systolic 118–145; BP diastolic 72–86
[2019-08-04] MEDS: HYDROMORPHONE 1MG/1ML INJ IV PRN ×2 (00:25→04:51)
[2019-08-04 01:07] LABS: CREATINE KINASE 29 IU/L (30-200)
--- NOTE | 2019-08-04 06:03 | NUR ---
Paged Dr. Morales regarding consult.
[2019-08-04 06:05] LABS: CREATINE KINASE 22 IU/L (30-200)
--- NOTE | 2019-08-04 09:16 | Diagnostic Imaging Report ---
EXAM: CT Chest WITH contrast- Pulmonary Embolism Protocol INDICATION: Shortness of breath, left chest pain, known pulmonary emboli. COMPARISON: Chest CT of 08/02/2019 TECHNIQUE: Chest was scanned utilizing a multidetector helical scanner from the lung apex through the level of the diaphragm after administration of IV contrast. Thin section reconstructions were obtained with special concentration on the pulmonary arteries. Coronal and sagittal reformations were obtained. Pulmonary embolism protocol was performed. IV CONTRAST: 100 cc of Isovue 370 RADIATION DOSE: Total DLP: 499.8 mGy*cm Dose modulation, iterative reconstruction, and/or weight based adjustment of the mA/kV was utilized to reduce the radiation dose to as low as reasonably achievable. COMPLICATIONS: None FINDINGS: LINES/ TUBES: None. PULMONARY ARTERIES: Again seen are multiple segmental and subsegmental filling defects involving the right upper, middle, and lower lobe pulmonary arteries consistent with known multifocal pulmonary embolism. Overall, clot burden is similar or slightly decreased compared to the prior exam of 08/02/2019. No new or enlarging pulmonary emboli. Specifically, no left-sided pulmonary embolism. The main pulmonary artery measures up to 2.6 cm. LUNGS AND AIRWAYS: The central airways are patent. Unchanged bibasilar dependent subsegmental atelectasis. No new focal consolidation. PLEURA: No pleural effusion or pneumothorax. HEART AND MEDIASTINUM: The thyroid gland is normal. No supraclavicular, mediastinal, or axillary lymphadenopathy. Unchanged heart size. No evidence of right heart strain. There is no pericardial effusion. . UPPER ABDOMEN: Limited contrast-enhanced views of the upper abdomen demonstrate no focal abnormality in the partially visualized liver, spleen, gallbladder, pancreas, or adrenal glands. Unchanged 5 mm left upper pole renal calculus. BONES: No acute osseous injury. Mild degenerative changes of the visualized spine. No suspicious lytic or blastic lesions. SOFT TISSUES: Unremarkable. IMPRESSION: Stable segmental and subsegmental right pulmonary emboli. No new or worsening pulmonary embolism. Unchanged bibasilar subsegmental atelectasis. Unchanged left upper pole renal calculus. Signed by: Aundrea Hernandez MD on 08/04/2019 9:13 AM
[2019-08-04] MEDS: PANTOPRAZOLE SOD 40 MG TABEC PO SCH ×2 (10:00→10:10)
[2019-08-04] MEDS ORDERED: CELECOXIB 200 MG CAP PO PRN (10:00)
[2019-08-04] MEDS: RIVAROXABAN 15 MG TABLET PO SCH ×2 (10:10→17:40)
[2019-08-04] MEDS ORDERED: IOPAMIDOL 370 MG/ML 200 ML INFUS..BTL INJ ONE (12:31)
[2019-08-04] MEDS ORDERED: SODIUM CHLORIDE 0.9% 50ML 50 ML ONE (12:31)
[2019-08-04 14:20] LABS: CREATINE KINASE 25 IU/L (30-200)
--- NOTE | 2019-08-04 19:20 | NUR ---
Bedside report completed with morning nurse. Patient alert to name. Lying in bed HOB 75 degrees. Denies pain at this time. Denies SOB. Call murray within reach. Family at bedside. Will continue to monitor.
--- NOTE | 2019-08-04 23:51 | Progress Note ---
DATE: SUBJECTIVE: The patient came in with acute pulmonary embolism today. The patient complains of left-sided chest pain, arm pain, and also the patient has bizarre anticoagulation, but the pain continues and was given Dilaudid yesterday. The pain is 10/10. Cardiac enzymes were done. EKG was done, which were all normal. PHYSICAL EXAMINATION: VITAL SIGNS: Temperature is 98.5, pulse of 67, respirations of 18, blood pressure is 123/72, and pulse oximetry of 99% on 2 L of nasal cannula. HEENT: Normocephalic and atraumatic. Pupils are reactive to light and accommodation. Cardiovascular system: S1, S2 normal. Regular rate and rhythm. ABDOMEN: Nontender, nondistended. EXTREMITIES: No clubbing, no cyanosis, no edema. LABORATORY VALUES: Today's hemoglobin was 13.7, hematocrit of 40.3. Chemistry shows sodium of 139, potassium of 4.3, BUN and creatinine 10 and 0.97. Cardiac enzymes have been sending. Homocysteine level has been sent. Coags, protein C, protein plasminogen activity and free protein S has been pending too. ASSESSMENT: Acute pulmonary embolism from a deep venous thrombosis. PLAN: Continue on Xarelto 15 mg twice a day. The patient can be discharged tomorrow. Pending another CT angiogram of the chest and also left upper arterial venous Doppler. Further recommendation per clinical course. A consult with Dr. Morales and Dr. Costa has been ordered already. MD ADRIANO JosephJ/MODL /[id number]
[2019-08-05] VITALS: BP 118/73
--- NOTE | 2019-08-05 03:57 | Consultation ---
DATE OF CONSULTATION: 08/04/[address] Patient of Dr. Estevan Patel. HISTORY OF PRESENT ILLNESS: Charming, but unfortunate 43-year-old gentleman with history of recent knee surgery, arthroscopic surgery on 07/28. He developed pain in the calf postoperatively, which was relieved after several days, but then developed pleuritic pain in the left chest and has been persistent over the last three days, worse on inspiration. PAST MEDICAL HISTORY: He has a history of gastroesophageal reflux, history of gastric sleeve procedure. ALLERGIES: NO KNOWN ALLERGIES. 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 Born in [facility] MEDICATIONS: His only medications are Protonix. PAST SURGICAL HISTORY: He has a history of hernia surgery and gastric sleeve surgery. Now knee surgery. FAMILY HISTORY: Noncontributory. PHYSICAL EXAMINATION: GENERAL: A well-developed white male, in no acute distress, somewhat anxious. VITAL SIGNS: Temperature 98, pulse 74, respirations 20, and blood pressure 142/76. HEAD: Normocephalic, atraumatic. EYES: Extraocular movements intact. LUNGS: Diminished breath sounds, but clear. HEART: Regular rhythm. ABDOMEN: Nontender. EXTREMITIES: Surgical wound of left knee. Follicular rash areas, where his knee was shaved. IMPRESSION: Deep venous thrombosis with pulmonary embolism related to arthroscopic surgery. PLAN: Anticoagulation as per Dr. Estevan Patel. He has no evidence of congestive heart failure. Recommend at least 3 months of oral anticoagulation. Celebrex if pleuritic pain persists. Homans symptoms have resolved. The patient is still complaining of severe pain. Venous Doppler is pending. Consider echocardiogram if pain persists. Thank you for this kind referral. MD THEA Berrios/MODL /[id number]
[2019-08-05 04:00] VITALS: BP 113/77
--- NOTE | 2019-08-05 06:30 | NUR ---
Patient sitting up in bed operating laptop. Denies pain and SOB. Call murray within reach.
[2019-08-05] MEDS: PANTOPRAZOLE SOD 40 MG TABEC PO SCH (07:36)
[2019-08-05 08:00] VITALS: BP 139/88
[2019-08-05] MEDS: RIVAROXABAN 15 MG TABLET PO SCH (09:17)
[2019-08-05] MEDS ORDERED: XARELTO20 MG PO (09:46)
--- NOTE | 2019-08-05 10:09 | Progress Note ---
DATE: SUBJECTIVE: This is a 43-year-old gentleman, who came status post left knee surgery with pulmonary embolism from a DVT. The patient is currently stable. The patient's pain has resolved. No chest pain or shortness of breath and is breathing okay. OBJECTIVE: VITAL SIGNS: On examination, the patient's vital signs; temperature is 96.4, pulse of 63, respirations of 18, blood pressure is 113/77, and pulse oximetry of 98% on 2 L of oxygen. HEENT: Normocephalic, atraumatic. Pupils are reactive to light and accommodation. CVS: S1, S2 normal. Regular rate and rhythm. ABDOMEN: Nontender, nondistended. EXTREMITIES: No clubbing, no cyanosis, and no edema. The patient's left lower extremity with no tenderness present at this time. The patient has been on Xarelto. LABORATORY VALUES: All within normal limits. Chemistries, troponins have been negative. Coags have been normal. D-dimer is 3310. Thrombophilic panel is pending. ASSESSMENT: Acute pulmonary embolism, deep vein thrombosis. PLAN: Continue Xarelto 50 mg twice a day for 20 more days. The patient can be discharged and further recommendation per clinical course. We will continue to monitor the patient as an outpatient. Strict ER warnings given to the patient. MD ADRIANO JosephJ/MODL /[id number]
== END 2019-08-05 10:16 | disposition home or self-care (01) | DRG 300 ==
LOC: ER 06:50 → ERHOLD 09:56 → MED/SURG2 11:53
PROVIDERS: ADMIT Family Medicine; ATTEND Family Medicine
DX: T81.718A Complication of other artery following a procedure, not elsewhere classified, initial encounter (principal); I82.432 Acute embolism and thrombosis of left popliteal vein; I26.99 Other pulmonary embolism without acute cor pulmonale; R07.9 Chest pain, unspecified; Z98.84 Bariatric surgery status; K21.0 Gastro-esophageal reflux disease with esophagitis; Z98.890 Other specified postprocedural states; Y83.8 Other surgical procedures as the cause of abnormal reaction of the patient, or of later complication, without mention of misadventure at the time of the procedure
CPT/HCPCS: 36415; 71045; 71260; 80053; 80061; 81241; 81400; 82550; 82553; 84484; 85025; 85303; 85306; 85379; 85610; 85730; 93005; 93306; 93971; 99284; J1170; J1650; J2270; J7030; Q9967

== ENCOUNTER → 2019-08-02 | Emergency (ER) | payer BC ==
[~2019-08-02] MED LIST: NITROSTAT0.4 MG SL; PANTOPRAZOLE SO40 MG PO; XARELTO20 MG PO
--- NOTE | 2019-08-02 06:49 | NUR ---
REGISTERED PATIENT TWICE
--- OUTSIDE RECORDS SUMMARY | 2019-08-02 06:50 | XMS REPORT | Continuity of Care Document ---
Author Author [employer] Address Unknown Phone Unavailable Care Team Providers Care Main Galley Scullion Name Role Phone [employer] Unavailable Unavailable Problems Problem Status Onset Date Classification Date Reported Comments Source Discharge Diagnosis: chest pain 03/11/2014 03/14/2014 [facility] CHEST PAIN Active 03/11/2014 [facility] MORBID OBESITY Active 10/06/2013 [facility] Hiatal hernia (disorder) Resolved Problem 10/31/2014 [facility], OPID [place],[facility], OPID [facility] Hypertensive disorder, systemic arterial (disorder) Resolved Problem 10/31/2014 [facility], [facility]ID [place],[facility], [facility] Morbid obesity (disorder) Resolved Problem 10/31/2014 [facility], [facility] [place],[facility], [facility] Obstructive sleep apnea syndrome (disorder) Resolved Problem 10/31/2014 [facility], [facility]ID [place],[facility], [facility] Osteoarthritis (disorder) Resolved Problem 10/31/2014 [facility], [facility] [place],[facility], [facility] Reflux (finding) Resolved Problem 10/31/2014 [facility], [facility] [place],[facility], [facility] MORBID OBESITY Active [facility] Medications Medication Details Route Status Patient Instructions Ordering Provider Order Date Source Nitroglycerin 0.4 MG Sublingual Tablet 0.4 mg=1 tab, SL, Q5Min, Chest pain, # 100 tab, 0 Refill(s) Active 03/11/2014 [facility] Aspirin 81 MG Chewable Tablet 81 mg, 1 tab, Route: PO, Drug form: [place]WTAB, ONCE, Dosing Weight 86.364, kg, Priority: STAT, Start date: 03/11/14 15:07:00, Stop date: 03/11/14 15:07:00Notes: Take with food. Inactive 03/11/2014 [facility] Saline Flush 0.9% 5 ml, Route: IVP, Drug Form: INJ, Dosing Weight 86.364, kg, PRN, PRN Line Flush, Start date: 03/11/14 15:07:00, Duration: 30 day, Stop date: 04/10/14 15:06:00Notes: (Same as: BD Posiflush) Inactive 03/11/2014 [facility] docusate sodium 150 mg/15 mL oral liquid 100 mg=10 ml, PO, Daily, # 240 ml, 0 Refill(s) Active [facility] 10/23/2013 [facility] acetaminophen-hydrocodone 325 mg-7.5 mg/15 mL oral solution 15 ml, PO, Q4H, Pain, # 420 mL, 0 Refill(s) Active [facility] 10/23/2013 [facility] acetaminophen-hydrocodone 300 mg-10 mg/15 mL oral liquid 15 mL, Route: PO, Drug Form: SOLN, Dosing Weight 116.818, kg, Q4H, PRN Pain, Start date: 10/22/13 9:32:00, Duration: 30 day, Stop date: 11/21/13 9:31:00Do not exceed 4gm/day of acetaminophen. (Same as: Zolvit) No Longer Active [facility] 10/22/2013 [facility] heparin 5,000 unit, 1 mL, Route: SUB-Q, Drug form: INJ, Q8H, Start date: 10/22/13 8:00:00, Duration: 30 day, Stop date: 11/21/13 0:00:00porcine heparin No Longer Active [facility] 10/22/2013 [facility] Mefoxin 2 gm, Route: IVPB, Drug form: INJ, ABXQ8H, Start date: 10/21/13 18:30:00, Duration: 2 doses or times, Stop date: 10/22/13 2:30:00(Same As: Mefoxin) No Longer Active [facility] 10/22/2013 [facility] ketorolac 30 mg/mL injectable solution 30 mg, 1 mL, Route: IV, Drug form: INJ, Q6H, Dosing Weight 116.818, kg, Start date: 10/21/13 18:00:00, Duration: 4 day, Stop date: 10/25/13 12:00:00(Same as:Toradol) IV bolus must be given >15 seconds. Give IM administration slowly and deeply into the muscle. Not for use > 4 days No Longer Active [facility] 10/22/2013 [facility] Ofirmev 1,000 mg, 100 mL, Route: IV, Drug form: INJ, Q6H, Start date: 10/21/13 18:00:00, Duration: 48 hr, Stop date: 10/25/13 12:00:00Infuse over 15 minutes Do not exceed 4gm/day of acetaminophen No Longer Active [facility] 10/22/2013 [facility] Protonix 40 mg, Route: IVP, Drug form: INJ, Before Dinner, Start date: 10/21/13 16:30:00, Duration: 30 day, Stop date: 11/19/13 16:30:00For IV push reconstitute with 10 ml 0.9% sodium chloride and push over 2 minutes. (Same as: Protonix) No Longer Active [facility] 10/21/2013 [facility] Dilaudid 0.2 mg, 0.1 mL, Route: IV, Drug form: INJ, Q4H, PRN Pain, Start date: 10/21/13 15:53:00, Duration: 30 day, Stop date: 11/20/13 15:52:00Same as: Dilaudid No Longer Active [facility] 10/21/2013 [facility] Zofran 4 mg, 2 mL, Route: IVP, Drug form: INJ, Q6H, PRN Nausea & Vomiting, Start date: 10/21/13 15:51:00, Duration: 30 day, Stop date: 11/20/13 15:50:00(Same as: Zofran) No Longer Active [facility] 10/21/2013 [facility] Lactated Ringers Injection IV 1,000 mL 1,000 mL, Rate: 100 ml/hr, Infuse over: 10 hr, Route: IV, Dosing Weight 116.818 kg, Total Volume: 1,000, Start date: 10/21/13 15:42:00, Stop date: 11/20/13 15:41:00 No Longer Active [facility] 10/21/2013 [facility] acetaminophen-hydrocodone 300 mg-10 mg/15 mL oral liquid 15 mL, Route: PO, Dosing Weight 116.818, kg, ONCE, Start date: 10/21/13 11:11:00, Stop date: 10/21/13 11:11:00 Inactive Elsie 10/21/2013 [facility] hydromorphone 0.5 mg, Route: IVP, Q5Min, Dosing Weight 116.818, kg, PRN Pain Score 7-10, Start date: 10/21/13 11:11:00, Duration: 4 doses or times, Stop date: Limited # of times Inactive Elsie 10/21/2013 [facility] flumazenil 0.2 mg, Route: IVP, PRN, Dosing Weight 116.818, kg, PRN Benzodiazepine Reversal, Initial dose, Start date: 10/21/13 11:11:00, Duration: 30 day, Stop date: 11/20/13 11:10:00 Inactive Elsie 10/21/2013 [facility] metoprolol 1 mg, Route: IVP, Q5Min, Dosing Weight 116.818, kg, PRN Other -See Comment, Start date: 10/21/13 11:11:00, Duration: 5 doses or times, Stop date: Limited # of times Inactive Elsie 10/21/2013 [facility] labetalol 10 mg, Route: IVP, Q5Min, Dosing Weight 116.818, kg, PRN Elevated BP, Start date: 10/21/13 11:11:00, Duration: 5 doses or times, Stop date: Limited # of times Inactive Elsie 10/21/2013 [facility] naloxone 0.04 mg, Route: IVP, Q2MIN, Dosing Weight 116.818, kg, PRN Narcotic Reversal, Start date: 10/21/13 11:11:00, Duration: 8 doses or times, Stop date: Limited # of times Inactive Elsie 10/21/2013 [facility] promethazine 6.25 mg, Route: IVPB, ONCE, Dosing Weight 116.818, kg, PRN Nausea & Vomiting, Start date: 10/21/13 11:11:00 Inactive Elsie 10/21/2013 [facility] OXYcodone 5 mg/5 mL oral solution 5 mg, Route: NG, Q4H, Dosing Weight 116.818, kg, PRN Pain Score 4-6, Start date: 10/21/13 11:11:00, Duration: 30 day, Stop date: 11/20/13 11:10:00 Inactive Elsie 10/21/2013 [facility] ondansetron 4 mg, Route: IVP, ONCE, Dosing Weight 116.818, kg, PRN Nausea & Vomiting, Start date: 10/21/13 11:11:00 Inactive Elsie 10/21/2013 [facility] bupivacaine liposome 20 mL, Route: InFILtration(local), Drug [...] each (total dose=30 mL [266 mg]) Inactive [facility] 10/21/2013 [facility] heparin 5,000 unit, 1 mL, Route: SUB-Q, Drug form: INJ, PRE OP, Priority: NOW, Start date: 10/21/13 8:47:00, Duration: 1 doses or times, Stop date: 10/22/13 0:00:00porcine heparin Inactive [facility] 10/21/2013 [facility] scopolamine 1 patch, Route: TOP, Drug form: ERFILM, PRE OP, Priority: NOW, Start date: 10/21/13 8:46:00, Duration: 1 doses or times, Stop date: 10/22/13 0:00:00Change patch every 72 hours (Same as: Transderm-S photostatic copy maker) Inactive [facility] 10/21/2013 [facility] Mefoxin 2 gm, Route: IVPB, Drug form: INJ, PRE OP, Priority: NOW, Start date: 10/21/13 8:45:00, Duration: 1 doses or times, Stop date: 10/22/13 0:00:00(Same As: Mefoxin) Inactive Arian 10/21/2013 [facility] Fish Oil 1000 mg oral capsule 0 Refill(s) No Longer Active 10/16/2013 [facility] calcium-vitamin D 250 mg-125 units oral tablet 1 tab, PO, TID, # 90 tab, 0 Refill(s) Active 10/16/2013 [facility] Vitamin B12 100 mcg oral tablet 100 microgram=1 tab, PO, Daily, # 90 tab, 0 Refill(s) Active 10/16/2013 [facility] metoprolol tartrate 100 mg oral tablet 100 mg=1 tab, PO, BID, # 180 tab, 0 Refill(s) No Longer Active 10/16/2013 [facility] Allergies, Adverse Reactions, Alerts No Known Medication Allergies Immunizations No Data Provided for This Section Results Order Name Results Value Reference Range Date Interpretation Comments Source CARDIAC ENZYMES CK MB 0.8 0.5 - 3.6 03/11/2014 [facility] CARDIAC ENZYMES Total CK 108 12 - 191 03/11/2014 [facility] CARDIAC ENZYMES Troponin-I <0.015 ng/mL 0.00 - 0.40 03/11/2014 [facility] CARDIAC ENZYMES CK-MB INDEX 0.7 0.0 - 2.5 03/11/2014 [facility] CHEM PANEL eGFR 106 03/11/2014 <sup>1</sup>Result Comment: [...] should be multiplied by the estimated BMI. [facility] CHEM PANEL AGAP 7.0 10.0 - 20.0 03/11/2014 [facility] CHEM PANEL Calcium Lvl 8.5 8.5 - 10.5 03/11/2014 [facility] CHEM PANEL Chloride Lvl 109 95 - 109 03/11/2014 [facility] CHEM PANEL CO2 30 24 - 32 03/11/2014 [facility] CHEM PANEL Creatinine Lvl 0.9 0.5 - 1.4 03/11/2014 [facility] CHEM PANEL Sodium Lvl 142 135 - 145 03/11/2014 [facility] CHEM PANEL Potassium Lvl 4.0 3.5 - 5.1 03/11/2014 [facility] CHEM PANEL Glucose Lvl 115 70 - 99 03/11/2014 <sup>2</sup>Interpretive Data: Adult reference range values reflect the clinical guidelines
of the [place] [employer]. [facility] CHEM PANEL BUN 8 7 - 22 03/11/2014 [facility] HEMATOLOGY Platelet 297 133 - 450 03/11/2014 [facility] HEMATOLOGY MPV 8.3 7.4 - 10.4 03/11/2014 [facility] HEMATOLOGY Hct 39.1 42.0 - 54.0 03/11/2014 [facility] HEMATOLOGY MCV 94.4 80.0 - 94.0 03/11/2014 [facility] HEMATOLOGY MCH 32.3 27.0 - 31.0 03/11/2014 [facility] HEMATOLOGY Hgb 13.4 14.0 - 18.0 03/11/2014 [facility] HEMATOLOGY RBC 4.14 4.70 - 6.10 03/11/2014 [facility] HEMATOLOGY MCHC 34.2 32.0 - 36.0 03/11/2014 [facility] HEMATOLOGY RDW 14.1 11.5 - 14.5 03/11/2014 [facility] HEMATOLOGY WBC 7.5 3.7 - 10.4 03/11/2014 [facility] HEMATOLOGY Eosinophils # 0.0 0.0 - 0.5 03/11/2014 [facility] HEMATOLOGY Basophils # 0.1 0.0 - 0.2 03/11/2014 [facility] HEMATOLOGY Basophils 1.4 0.0 - 1.0 03/11/2014 [facility] HEMATOLOGY Monocytes # 0.4 0.0 - 0.8 03/11/2014 [facility] HEMATOLOGY Segs-Bands # 4.1 1.5 - 8.1 03/11/2014 [facility] HEMATOLOGY Monocytes 5.7 2.0 - 12.0 03/11/2014 [facility] HEMATOLOGY Eosinophils 0.6 0.0 - 4.0 03/11/2014 [facility] HEMATOLOGY Lymphocytes # 2.8 1.0 - 5.5 03/11/2014 [facility] HEMATOLOGY Segs 54.9 45.0 - 75.0 03/11/2014 [facility] HEMATOLOGY Lymphocytes 37.4 20.0 - 40.0 03/11/2014 [facility] CHEMISTRY Magnesium Lvl 1.9 1.8 - 2.4 10/23/2013 Normal [facility] CHEMISTRY Phosphorus 2.3 2.5 - 4.5 10/23/2013 LOW [facility] CHEMISTRY eGFR 107 10/23/2013 <sup>1</sup>Result Comment: The [...] should be multiplied by the estimated BMI. [facility] CHEMISTRY Calcium Lvl 8.3 8.5 - 10.5 10/23/2013 LOW [facility] CHEMISTRY CO2 22 24 - 32 10/23/2013 LOW [facility] CHEMISTRY Chloride Lvl 103 95 - 109 10/23/2013 Normal [facility] CHEMISTRY Potassium Lvl 3.9 3.5 - 5.1 10/23/2013 Normal [facility] CHEMISTRY Sodium Lvl 138 135 - 145 10/23/2013 Normal [facility] CHEMISTRY Creatinine Lvl 0.9 0.5 - 1.4 10/23/2013 Normal [facility] CHEMISTRY BUN 9 7 - 22 10/23/2013 Normal [facility] CHEMISTRY Glucose Lvl 69 70 - 99 10/23/2013 LOW <sup>4</sup>Interpretive Data: Adult reference range values reflect the clinical guidelines
of the [place] [employer]. [facility] CHEMISTRY AGAP 16.9 10.0 - 20.0 10/23/2013 Normal [facility] HEMATOLOGY Platelet 330 133 - 450 10/23/2013 Normal [facility] HEMATOLOGY MPV 8.4 7.4 - 10.4 10/23/2013 Normal [facility] HEMATOLOGY MCHC 33.1 32.0 - 36.0 10/23/2013 Normal [facility] HEMATOLOGY RDW 12.5 11.5 - 14.5 10/23/2013 Normal [facility] HEMATOLOGY MCV 94.5 80.0 - 94.0 10/23/2013 [facility] HEMATOLOGY MCH 31.3 27.0 - 31.0 10/23/2013 [facility] HEMATOLOGY Hgb 13.2 14.0 - 18.0 10/23/2013 LOW [facility] HEMATOLOGY Hct 39.7 42.0 - 54.0 10/23/2013 LOW [facility] HEMATOLOGY RBC X 10x6 4.20 4.70 - 6.10 10/23/2013 LOW [facility] HEMATOLOGY WBC X 10x3 8.3 3.7 - 10.4 10/23/2013 Normal [facility] HEMATOLOGY Basophils # 0.1 0.0 - 0.2 10/23/2013 Normal [facility] HEMATOLOGY Segs-Bands # 4.6 1.5 - 8.1 10/23/2013 Normal [facility] HEMATOLOGY Eosinophils 0.4 0.0 - 4.0 10/23/2013 Normal [facility] HEMATOLOGY Lymphocytes # 2.8 1.0 - 5.5 10/23/2013 Normal [facility] HEMATOLOGY Monocytes # 0.8 0.0 - 0.8 10/23/2013 Normal [facility] HEMATOLOGY Basophils 0.7 0.0 - 1.0 10/23/2013 Normal [facility] HEMATOLOGY Segs 55.4 45.0 - 75.0 10/23/2013 Normal [facility] HEMATOLOGY Monocytes 10.2 2.0 - 12.0 10/23/2013 Normal [facility] HEMATOLOGY Lymphocytes 33.3 20.0 - 40.0 10/23/2013 Normal [facility] CHEMISTRY Phosphorus 4.3 2.5 - 4.5 10/22/2013 Normal [facility] CHEMISTRY Magnesium Lvl 2.0 1.8 - 2.4 10/22/2013 Normal [facility] CHEMISTRY eGFR 107 10/22/2013 <sup>2</sup>Result Comment: The [...] should be multiplied by the estimated BMI. [facility] CHEMISTRY Chloride Lvl 103 95 - 109 10/22/2013 Normal [facility] CHEMISTRY BUN 10 7 - 22 10/22/2013 Normal [facility] CHEMISTRY Glucose Lvl 93 70 - 99 10/22/2013 Normal <sup>5</sup>Interpretive Data: Adult reference range values reflect the clinical guidelines
of the [place] [employer]. [facility] CHEMISTRY Sodium Lvl 138 135 - 145 10/22/2013 Normal [facility] CHEMISTRY Potassium Lvl 4.3 3.5 - 5.1 10/22/2013 Normal [facility] CHEMISTRY Creatinine Lvl 0.9 0.5 - 1.4 10/22/2013 Normal [facility] CHEMISTRY Calcium Lvl 8.5 8.5 - 10.5 10/22/2013 Normal [facility] CHEMISTRY CO2 24 24 - 32 10/22/2013 Normal [facility] CHEMISTRY AGAP 15.3 10.0 - 20.0 10/22/2013 Normal [facility] HEMATOLOGY Monocytes # 0.9 0.0 - 0.8 10/22/2013 HI [facility] HEMATOLOGY Lymphocytes # 2.6 1.0 - 5.5 10/22/2013 Normal [facility] HEMATOLOGY Segs-Bands # 6.4 1.5 - 8.1 10/22/2013 [facility] HEMATOLOGY Basophils 0.2 0.0 - 1.0 10/22/2013 [facility] HEMATOLOGY Eosinophils 0.1 0.0 - 4.0 10/22/2013 [facility] HEMATOLOGY Monocytes 9.0 2.0 - 12.0 10/22/2013 [facility] HEMATOLOGY Lymphocytes 26.1 20.0 - 40.0 10/22/2013 [facility] HEMATOLOGY Segs 64.6 45.0 - 75.0 10/22/2013 [facility] HEMATOLOGY MPV 8.4 7.4 - 10.4 10/22/2013 [facility] HEMATOLOGY Platelet 345 133 - 450 10/22/2013 [facility] HEMATOLOGY RDW 12.8 11.5 - 14.5 10/22/2013 [facility] HEMATOLOGY MCHC 35.0 32.0 - 36.0 10/22/2013 [facility] HEMATOLOGY MCH 32.8 27.0 - 31.0 10/22/2013 [place] [facility] HEMATOLOGY MCV 93.9 80.0 - 94.0 10/22/2013 [facility] HEMATOLOGY Hct 38.2 42.0 - 54.0 10/22/2013 [facility] HEMATOLOGY Hgb 13.3 14.0 - 18.0 10/22/2013 [facility] HEMATOLOGY RBC X 10x6 4.07 4.70 - 6.10 10/22/2013 [facility] HEMATOLOGY WBC X 10x3 9.9 3.7 - 10.4 10/22/2013 [facility] BLOOD BANK RESULTS ABO/Rh O POS 10/21/2013 [facility] BLOOD BANK RESULTS Antibody Scrn Negative (10/21/2013 08:35:00) 10/21/2013 [facility] CHEMISTRY eGFR 94 10/15/2013 <sup>3</sup>Result Comment: [...] should be multiplied by the estimated BMI. [facility] CHEMISTRY ALANINE AMINOTRANSFERASE 150 0 - 65 10/15/2013 [facility] CHEMISTRY Albumin Lvl 4.0 3.5 - 5.0 10/15/2013 Normal [facility] CHEMISTRY Total Protein 7.7 6.4 - 8.4 10/15/2013 Normal [facility] CHEMISTRY ASPARTATE TRANSAMINASE 71 0 - 37 10/15/2013 [facility] CHEMISTRY Sodium Lvl 139 135 - 145 10/15/2013 Normal [facility] CHEMISTRY Creatinine Lvl 1.0 0.5 - 1.4 10/15/2013 Normal [facility] CHEMISTRY BUN 10 7 - 22 10/15/2013 Normal [facility] CHEMISTRY Glucose Lvl 89 70 - 99 10/15/2013 Normal <sup>6</sup>Interpretive Data: Adult reference range values reflect the clinical guidelines
of the [place] [employer]. [facility] CHEMISTRY Alk Phos 97 39 - 136 10/15/2013 Normal [facility] CHEMISTRY Bili Total 0.5 0.2 - 1.3 10/15/2013 Normal [facility] CHEMISTRY CO2 26 24 - 32 10/15/2013 Normal [facility] CHEMISTRY Potassium Lvl 4.4 3.5 - 5.1 10/15/2013 Normal [facility] CHEMISTRY Calcium Lvl 9.1 8.5 - 10.5 10/15/2013 Normal [facility] CHEMISTRY Chloride Lvl 103 95 - 109 10/15/2013 Normal [facility] CHEMISTRY Globulin 3.7 2.0 - 4.0 10/15/2013 Normal [facility] CHEMISTRY B/C Ratio 10 6 - 25 10/15/2013 Normal [facility] CHEMISTRY AGAP 14.4 10.0 - 20.0 10/15/2013 Normal [facility] CHEMISTRY A/G Ratio 1.1 0.7 - 1.6 10/15/2013 Normal [facility] HEMATOLOGY MPV 8.3 7.4 - 10.4 10/15/2013 Normal [facility] HEMATOLOGY RDW 13.0 11.5 - 14.5 10/15/2013 Normal [facility] HEMATOLOGY MCHC 34.5 32.0 - 36.0 10/15/2013 Normal [facility] HEMATOLOGY Platelet 312 133 - 450 10/15/2013 Normal [facility] HEMATOLOGY WBC X 10x3 7.9 3.7 - 10.4 10/15/2013 Normal [facility] HEMATOLOGY MCV 93.3 80.0 - 94.0 10/15/2013 [facility] HEMATOLOGY MCH 32.2 27.0 - 31.0 10/15/2013 [facility] HEMATOLOGY Hct 40.8 42.0 - 54.0 10/15/2013 LOW [facility] HEMATOLOGY RBC X 10x6 4.37 4.70 - 6.10 10/15/2013 LOW [facility] HEMATOLOGY Hgb 14.1 14.0 - 18.0 10/15/2013 Normal [facility] HEMATOLOGY Basophils # 0.1 0.0 - 0.2 10/15/2013 Normal [facility] HEMATOLOGY Eosinophils # 0.1 0.0 - 0.5 10/15/2013 [facility] HEMATOLOGY Eosinophils 1.7 0.0 - 4.0 10/15/2013 [facility] HEMATOLOGY Segs-Bands # 3.8 1.5 - 8.1 10/15/2013 [facility] HEMATOLOGY Basophils 0.8 0.0 - 1.0 10/15/2013 [facility] HEMATOLOGY Monocytes # 0.9 0.0 - 0.8 10/15/2013 [facility] HEMATOLOGY Lymphocytes # 3.1 1.0 - 5.5 10/15/2013 Normal [facility] HEMATOLOGY Lymphocytes 38.6 20.0 - 40.0 10/15/2013 [facility] HEMATOLOGY Segs 47.6 45.0 - 75.0 10/15/2013 [facility] HEMATOLOGY Monocytes 11.3 2.0 - 12.0 10/15/2013 [facility] URINALYSIS UA Urobilinogen <=1.0 mg/dL 0.1 - 1.0 10/15/2013 [facility] URINALYSIS UA Sq Epi None Seen 10/15/2013 [facility] URINALYSIS UA Nitrite Negative (10/15/2013 14:00:00) Negative 10/15/2013 Normal [facility] URINALYSIS UA Mucus Moderate /LPF None Seen 10/15/2013 ABN [facility] URINALYSIS UA Leuk Est Negative (10/15/2013 14:00:00) Negative 10/15/2013 Normal [facility] URINALYSIS UA Bili Negative *NA* (10/15/2013 14:00:00) Negative 10/15/2013 [facility] URINALYSIS UA Blood Negative (10/15/2013 14:00:00) Negative 10/15/2013 Normal [facility] URINALYSIS UA Turbidity Clear (10/15/2013 14:00:00) Clear 10/15/2013 Normal [facility] URINALYSIS UA Color Yellow *NA* (10/15/2013 14:00:00) Yellow 10/15/2013 [facility] URINALYSIS UA Protein 10 mg/dL Negative 10/15/2013 ABN [facility] URINALYSIS UA pH 6.0 5.0 - 8.0 10/15/2013 Normal [facility] URINALYSIS UA Glucose Negative mg/dL Negative 10/15/2013 [facility] URINALYSIS UA Ketones Negative mg/dL Negative 10/15/2013 [facility] URINALYSIS UA Spec Grav 1.016 <=1.030 10/15/2013 Normal [facility] Pathology Reports No Data Provided for This Section Diagnostic Reports Report Value Date Source Bone Density-Dual Energy Absorptionmetry EXAM: Bone density study, multiple sites; dual photon absorptiometry DATE: 10/28/2014 at 1142 hours. INDICATION: Screening for osteoporosis. TECHNIQUE: Lumbar spine and left hip bone mineral densities were measured using [employer]. 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 Heart size normal. SL: 12 03/11/2014 [facility] Consultation Notes No Data Provided for This Section Discharge Summaries No Data Provided for This Section History and Physicals No Data Provided for This Section Vital Signs Vital Sign Value Date Comments Source Systolic (mm Hg) 124 03/11/2014 [facility] Heart Rate 75 03/11/2014 [facility] Respitory Rate 20 03/11/2014 [facility] Diastolic (mm Hg) 78 03/11/2014 [facility] BMI Calculated 28.95 03/11/2014 [facility] Height 172.72 cm 03/11/2014 [facility] Weight 86.364 03/11/2014 [facility] Systolic (mm Hg) 137 03/11/2014 [facility] Diastolic (mm Hg) 84 03/11/2014 [facility] Respitory Rate 18 03/11/2014 [facility] Heart Rate 62 03/11/2014 [facility] Temperature Oral (F) 97.7 F 03/11/2014 [facility] Respitory Rate 18 10/23/2013 [facility] Heart Rate 91 10/23/2013 [facility] Diastolic (mm Hg) 90 10/23/2013 [facility] Systolic (mm Hg) 149 10/23/2013 [facility] Temperature Oral (F) 98.7 F 10/23/2013 [facility] Heart Rate 89 10/23/2013 [facility] Respitory Rate 18 10/23/2013 [facility] Systolic (mm Hg) 138 10/23/2013 [facility] Diastolic (mm Hg) 89 10/23/2013 [facility] Temperature Oral (F) 98.7 F 10/23/2013 [facility] Respitory Rate 18 10/23/2013 [facility] Heart Rate 70 10/23/2013 [facility] Systolic (mm Hg) 139 10/23/2013 [facility] Temperature Oral (F) 98.1 F 10/23/2013 [facility] Diastolic (mm Hg) 89 10/23/2013 [facility] Weight 116.818 10/21/2013 [facility] Height 170.18 cm 10/21/2013 [facility] Weight 116.818 10/21/2013 [facility] Height 170.18 cm 10/15/2013 [facility] Encounters Location Location Details Encounter Type Encounter Number Reason For Visit Attending Provider ADM Date DC Date Status Source [facility] Inpatient [id number] MIKE DON 10/21/2013 10/23/2013 Discharged [facility] [id number] Mamadou Amezcua 03/11/2014 03/11/2014 [facility] [id number] Mike Don 05/14/2014 05/15/2014 [facility] [id number] Mike Don 10/28/2014 10/29/2014 [facility] Procedures Procedure Code Date Perfomer Comments Source Arthroscopy of knee<sup>1</sup> [id number] [facility] Hernia repair<sup>2</sup> [id number] [facility] Assessment and Plan No Data Provided for This Section Plan of Care No Data Provided for This Section Social History Social History Date Source Social History TypeResponse Smoking Status Former smoker, Type: Cigarettes, Exposure to Tobacco Smoke None, Cigarette Smoking Last 365 Days No, Reg Smoking Cessation Counseling No 03/11/2014 [facility] Social History TypeResponse Smoking Status Former smoker, [...]
== END | disposition short-term general hospital (02) ==
LOC: ER 06:47
DX: R07.89 Other chest pain (principal)

== ENCOUNTER 2020-04-19 18:15 | Emergency (ER) | payer BC ==
[~2020-04-19] VITALS: Ht 170.2 cm; Wt 82.6 kg
[~2020-04-19 18:15] MED LIST changes: +XARELTO20 MG PO
--- OUTSIDE RECORDS SUMMARY | 2020-04-19 18:20 | XMS REPORT ---
Author Author CHRISTOPHER Martínez Organization Unknown Address Unknown Phone Care Team Providers Care Meal Cooker Name Role Phone Martínez, Sanjuana PP Reason for Referral No Reason for Referral was given. History of Present Illness No HPI available. Problems * Normal Routine History And Physical Adult (V70.0); (Active) Medication * No Active Medications Allergies and Adverse Reactions * Not Known Past Medical History * No Significant Medical History Advance Directives * No Advance Directives available. Encounters * AUDIT 11/27/2012 * EST, Provider: GAMAL POMPA, Status: Mohan, Time: 12:00 PM 12/31/2012
--- OUTSIDE RECORDS SUMMARY | 2020-04-19 18:20 | XMS REPORT | Continuity of Care Document ---
Author Author LORENZO Arellano Ozmota Address Unknown Phone Unavailable Care Team Providers Care Tour Agent Name Role Phone [employer] Unavailable Un available Problems Problem Status Onset Date Classification Date Reported Comments Source Discharge Diagnosis: chest pain 03/11/2014 03/14/2014 [facility] CHEST PAIN Active 03/11/2014 [facility] MORBID OBESITY Active 10/06/2013 [facility] Hypertension Active 11/19/2013 [facility] Hyperlipidemia Active 11/19/2013 [facility] Hiatal hernia (disorder) Resol federico Problem [facility], O PID [place],[facility], OPID [facility] Hypertensive disorder, systemic arterial (disorder) Resolved Problem 10/31/2014 [facility], OPID [place], [facility] Morbid obesity (disorder) Reso lved Problem [facility], O PID [place],[facility], OP[facility] Obstructive sleep apnea syndrome (disorder) Resolved Problem 10/31/2014 [facility], OPID [place],[facility], OPID [facility] Osteoarthritis (disorder) Reso lved Problem [facility], O PID [place],[facility], OPID [facility] Reflux (finding) Resolved Problem 10/31/2014 [facility], O PID [place],[facility], OPID [facility] MORBID OBESITY Active [facility] Medications Medication Details Route Status Patient Instructions Ordering Provider Order Date Source Nitroglycerin 0.4 MG Sublingual Tablet 0.4 mg = 1 tab, SL, Q5Min, Chest pain, # 100 tab, 0 Refill(s) Active 03/11/2014 [facility] Aspirin 81 MG Chewable Tablet Notes: Take with food. Inactive 03/11/2014 [facility] Saline Flush 0.9% Notes: (Same as: BD Posiflush) Inactive 03/11/2014 [facility] docusate sodium 150 mg/15 mL oral liquid 100 mg = 10 ml, PO, Daily, # 240 ml, 0 Refill(s) Active Harley up 10/23/2013 [facility] nter acetaminophen-hydrocodone 325 mg-7.5 mg/ 15 mL oral solution 15 ml, PO, Q4H, Pain, # 420 mL, 0 Refill(s) Active [facility] 10/23/2013 [facility] nter acetaminophen-hydrocodone 300 mg-10 mg/1 5 mL oral liquid 15 mL, Route: PO, Drug Form: SOLN, Dosin g Weight 116.818, kg, Q4H, PRN Pain, Start date: 10/22/13 9:32:00, Duration: 30 day, Stop date: 11/21/13 9:31:00Do not exceed 4gm/day of acetaminophen. (Same as: Zolvit) No Longer Active [facility] 10/22/2013 [facility] heparin 5,000 unit, 1 mL, Rout e: SUB-Q, Drug form: INJ, Q8H, Start date: 10/22/13 8:00:00, Duration: 30 day, Stop date: 11/21/13 0:00:00porcine heparin No Longer Active [facility] 10/22/2013 [facility] nter Mefoxin 2 gm, Route: IVPB, Gian g form: INJ, ABXQ8H, Start date: 10/21/13 18:30:00, Duration: 2 doses or times, Stop date: 10/22/13 2:30:00(Same As: Mefoxin) No Longer Active Roger 10/22/2013 [facility] nter ketorolac 30 mg/mL injectable solution 30 mg, 1 mL, Route: IV, Drug form: INJ, Q6H, Dosing Weight 116.818, kg, Start date: 10/21/13 18:00:00, Duration: 4 day, Stop date: 10/25/13 12:00:00(Same as:Toradol) IV bolus must be given >15 seconds. Give IM administration slowly and deeply into the muscle. Not for use > 4 days No Longer Active Evan 10/22/2013 [facility] nter Ofirmev 1,000 mg, 100 mL, Rout e: IV, Drug form: INJ, Q6H, Start date: 10/21/13 18:00:00, Duration: 48 hr, Stop date: 10/25/13 12:00:00Infuse over 15 minutes Do not exceed 4gm/day of acetaminophen No Longer Active [facility] 10/22/2013 [facility] Protonix 40 mg, Route: IVP, Dr ug form: INJ, Before Dinner, Start date: 10/21/13 16:30:00, Duration: 30 day, Stop date: 11/19/13 16:30:00For IV push reconstitute with 10 ml 0.9% sodium chloride and push over 2 minutes. (Same as: Protonix) N o Longer Active [facility] 10/21/2013 [facility] nter Dilaudid 0.2 mg, 0.1 mL, Route : IV, Drug form: INJ, Q4H, PRN Pain, Start date: 10/21/13 15:53:00, Duration: 30 day, Stop date: 11/20/13 15:52:00Same as: Dilaudid No Longer Active [facility] 10/21/2013 [facility] nter Zofran 4 mg, 2 mL, Route: IVP, Drug form: INJ, Q6H, PRN Nausea & Vomiting, Start date: 10/21/13 15:51:00, Duration: 30 day, Stop date: 11/20/13 15:50:00(Same as: Zofran) No Longer Active [facility] 10/21/2013 [facility] nter Lactated Ringers Injection IV 1,000 mL 1,000 mL, Rate: 100 ml/hr, Infuse over: 10 hr, Route: IV, Dosing Weight 116.818 kg, Total Volume: 1,000, Start date: 10/21/13 15:42:00, Stop date: 11/20/13 15:41:00 No Longer Active [facility] 10/21 [facility] acetaminophen-hydrocodone 300 mg-10 mg/1 5 mL oral liquid 15 mL, Route: PO, Dosing Weight 116.818, kg, ONCE, Start date: 10/21/13 11:11:00, Stop date: 10/21/13 11:11:00 Inactive Marcella scott 10/21/2013 [facility] nter hydromorphone 0.5 mg, Route: 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, Q5Min, Dosing Weight 116.818, kg, PRN Pain Score 7-10, Start date: 10/21/13 11:11:00, Duration: 4 doses or times, Stop date: Limited # of times Inactive Marcella sonia 10/21/2013 [facility] flumazenil 0.2 mg, Route: IVP, PRN, Dosing Weight 116.818, kg, PRN Benzodiazepine Reversal, Initial dose, Start date: 10/21/13 11:11:00, Duration: 30 day, Stop date: 11/20/13 11:10:00 Inactive Adolfo 10/21/2013 [facility] metoprolol 1 mg, Route: IVP, Q 5Min, Dosing Weight 116.818, kg, PRN Other -See Comment, Start date: 10/21/13 11:11:00, Duration: 5 doses or times, Stop date: Limited # of times Inactive Marcella scott 10/21/2013 [facility] labetalol 10 mg, Route: IVP, Q 5Min, Dosing Weight 116.818, kg, PRN Elevated BP, Start date: 10/21/13 11:11:00, Duration: 5 doses or times, Stop date: Limited # of times Inactive Marcella sonia 10/21/2013 [facility] nter naloxone 0.04 mg, Route: IVP, Q2MIN, Dosing Weight 116.818, kg, PRN Narcotic Reversal, Start date: 10/21/13 11:11:00, Duration: 8 doses or times, Stop date: Limited # of times Inactive Marcella scott 10/21/2013 [facility] promethazine 6.25 mg, Route: I VPB, ONCE, Dosing Weight 116.818, kg, PRN Nausea & Vomiting, Start date: 10/21/13 11:11:00 Inactive Adolfo 10/21/2013 [facility] OXYcodone 5 mg/5 mL oral solution 5 mg, Route: NG, Q4H, Dosing Weight 116.818, kg, PRN Pain Score 4-6, Start date: 10/21/13 11:11:00, Duration: 30 day, Stop date: 11/20/13 11:10:00 Inactive Marcella sonia 10/21/2013 [facility] ondansetron 4 mg, Route: IVP, ONCE, Dosing Weight 116.818, kg, PRN Nausea & Vomiting, Start date: 10/21/13 11:11:00 Inactive Adolfo 10/21/2013 [facility] bupivacaine liposome 20 mL, [place]: InFILtration(local), Drug Form: INJ, ONCE, Start date: [...] subcutaneous tissue of the surgical site (total dose = 8 mL [106 mg]) Hemorrhoidectomy: 30 mL (20 mL vial diluted with 10 mL NS) divided and administered as 6 injections of 5 mL each (total dose = 30 mL [266 mg]) Inactive [facility] 10/21/2013 [facility] nt heparin 5,000 unit, 1 mL, Rout e: SUB-Q, Drug form: INJ, PRE OP, Priority: NOW, Start date: 10/21/13 8:47:00, Duration: 1 doses or times, Stop date: 10/22/13 0:00:00porcine heparin Inactive [facility] 10/21/2013 [facility] nter scopolamine 1 patch, Route: TO P, Drug form: ERFILM, PRE OP, Priority: NOW, Start date: 10/21/13 8:46:00, Duration: 1 doses or times, Stop date: 10/22/13 0:00:00Change patch every 72 hours (Same as: 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-S 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) Inactive Arian 10/12 [facility] Mefoxin 2 gm, Route: IVPB, Gian g form: INJ, PRE OP, Priority: NOW, Start date: 10/21/13 8:45:00, Duration: 1 doses or times, Stop date: 10/22/13 0:00:00(Same As: Mefoxin) Inactive [facility] 10/21/2013 [facility] nter Fish Oil 1000 mg oral capsule 0 Refill(s) No Longer Active 10/16/2013 [facility] calcium-vitamin D 250 mg-125 units oral tablet 1 tab, PO, TID, # 90 tab, 0 Refill(s) Active 10/16/2013 [facility] nt Vitamin B12 100 mcg oral tablet 100 microgram = 1 tab, PO, Daily, # 90 tab, 0 Refill(s) Active 10/16/2013 [facility] nter metoprolol tartrate 100 mg oral tablet 100 mg = 1 tab, PO, BID, # 180 tab, 0 Refill(s) No Longer Active 10/16/2013 [facility] nter No Active Medications No Activ e Medications Active [facility] Metoprolol Succinate ER 50 MG Oral Table t Extended Release 24 Hour (Active) A ctive [facility] Calcium TABS (Active) Active [facility] Allergies, Adverse Reactions, Alerts Substance Category Reaction Severity Reaction type Status Date Reported Comments Source Not Known [facility] No Known Drug Allergies drug a llergy drug aller gy Active [facility] Immunizations No Data Provided for This Section Results Order Name Results Value Reference Range Date Interpretation Comments Source CARDIAC ENZYMES CK MB 0.8 0.5 - 3.6 03/11/2014 [facility] CARDIAC ENZYMES Total CK 108 12 - 191 03/11/2014 [facility] CARDIAC ENZYMES Troponin-I <0.015 ng/mL 0.00 - 0.40 03/11/2014 [facility] CARDIAC ENZYMES CK-MB INDEX 0.7 0.0 - 2.5 03/11/2014 [facility] CHEM PANEL eGFR 106 03/11/2014 <sup>1</sup>Result [...] should be multiplied by the estimated BMI. [facility] CHEM PANEL AGAP 7.0 10.0 - 20.0 03/11/2014 [facility] CHEM PANEL Calcium Lvl 8.5 8.5 - 10.5 03/11/2014 [facility] CHEM PANEL Chloride Lvl 109 95 - 109 03/11/2014 [facility] CHEM PANEL CO2 30 24 - 32 03/11/2014 [facility] CHEM PANEL Creatinine Lvl 0.9 0.5 - 1.4 03/11/2014 [facility] CHEM PANEL Sodium Lvl 142 135 - 145 03/11/2014 [facility] CHEM PANEL Potassium Lvl 4.0 3.5 - 5.1 03/11/2014 [facility] CHEM PANEL Glucose Lvl 115 70 - 99 03/11/2014 <sup>2</sup>Interpretive Data: Adult ref erence range values reflect the clinical guidelines
of the [place] [employer]. [facility] CHEM PANEL BUN 8 7 - 22 03/11/2014 [facility] HEMATOLOGY Platelet 297 133 - 450 03/11/2014 [facility] HEMATOLOGY MPV 8.3 7.4 - 10.4 03/11/2014 [facility] HEMATOLOGY Hct 39.1 42.0 - 54.0 03/11/2014 [facility] HEMATOLOGY MCV 94.4 80.0 - 94.0 03/11/2014 [facility] HEMATOLOGY MCH 32.3 27.0 - 31.0 03/11/2014 [facility] HEMATOLOGY Hgb 13.4 14.0 - 18.0 03/11/2014 [facility] HEMATOLOGY RBC 4.14 4.70 - 6.10 03/11/2014 [facility] HEMATOLOGY MCHC 34.2 32.0 - 36.0 03/11/2014 [facility] HEMATOLOGY RDW 14.1 11.5 - 14.5 03/11/2014 [facility] HEMATOLOGY WBC 7.5 3.7 - 10.4 03/11/2014 [facility] HEMATOLOGY Eosinophils # 0.0 0.0 - 0.5 03/11/2014 [facility] HEMATOLOGY Basophils # 0.1 0.0 - 0.2 03/11/2014 [facility] HEMATOLOGY Basophils 1.4 0.0 - 1.0 03/11/2014 [facility] HEMATOLOGY Monocytes # 0.4 0.0 - 0.8 03/11/2014 [facility] HEMATOLOGY Segs-Bands # 4.1 1.5 - 8.1 03/11/2014 [facility] HEMATOLOGY Monocytes 5.7 2.0 - 12.0 03/11/2014 [facility] HEMATOLOGY Eosinophils 0.6 0.0 - 4.0 03/11/2014 [facility] HEMATOLOGY Lymphocytes # 2.8 1.0 - 5.5 03/11/2014 [facility] HEMATOLOGY Segs 54.9 45.0 - 75.0 03/11/2014 [facility] HEMATOLOGY Lymphocytes 37.4 20.0 - 40.0 03/11/2014 [facility] CHEMISTRY Magnesium Lvl 1.9 1.8 - 2.4 10/23/2013 Normal [facility] CHEMISTRY Phosphorus 2.3 2.5 - 4.5 10/23/2013 LOW [facility] CHEMISTRY eGFR 107 10/23/2013 <sup>1</sup>Result [...] should be multiplied by the estimated BMI. [facility] CHEMISTRY Calcium Lvl 8.3 8.5 - 10.5 10/23/2013 LOW [facility] CHEMISTRY CO2 22 24 - 32 10/23/2013 LOW [facility] CHEMISTRY Chloride Lvl 103 95 - 109 10/23/2013 Normal [facility] CHEMISTRY Potassium Lvl 3.9 3.5 - 5.1 10/23/2013 Normal [facility] CHEMISTRY Sodium Lvl 138 135 - 145 10/23/2013 Normal [facility] CHEMISTRY Creatinine Lvl 0.9 0.5 - 1.4 10/23/2013 Normal [facility] CHEMISTRY BUN 9 7 - 22 10/23/2013 Normal [facility] CHEMISTRY Glucose Lvl 69 70 - 99 10/23/2013 LOW <sup>4</sup>Interpretive Data: Adult ref erence range values reflect the clinical guidelines
of the [place] [employer]. [facility] CHEMISTRY AGAP 16.9 10.0 - 20.0 10/23/2013 Normal [facility] HEMATOLOGY Platelet 330 133 - 450 10/23/2013 Normal [facility] HEMATOLOGY MPV 8.4 7.4 - 10.4 10/23/2013 Normal [facility] HEMATOLOGY MCHC 33.1 32.0 - 36.0 10/23/2013 Normal [facility] HEMATOLOGY RDW 12.5 11.5 - 14.5 10/23/2013 Normal [facility] HEMATOLOGY MCV 94.5 80.0 - 94.0 10/23/2013 [facility] HEMATOLOGY MCH 31.3 27.0 - 31.0 10/23/2013 [facility] HEMATOLOGY Hgb 13.2 14.0 - 18.0 10/23/2013 LOW [facility] HEMATOLOGY Hct 39.7 42.0 - 54.0 10/23/2013 LOW [facility] HEMATOLOGY RBC X 10x6 4.20 4.70 - 6.10 10/23/2013 LOW [facility] HEMATOLOGY WBC X 10x3 8.3 3.7 - 10.4 10/23/2013 Normal [facility] HEMATOLOGY Basophils # 0.1 0.0 - 0.2 10/23/2013 Normal [facility] HEMATOLOGY Segs-Bands # 4.6 1.5 - 8.1 10/23/2013 Normal [facility] HEMATOLOGY Eosinophils 0.4 0.0 - 4.0 10/23/2013 Normal [facility] HEMATOLOGY Lymphocytes # 2.8 1.0 - 5.5 10/23/2013 Normal [facility] HEMATOLOGY Monocytes # 0.8 0.0 - 0.8 10/23/2013 Normal [facility] HEMATOLOGY Basophils 0.7 0.0 - 1.0 10/23/2013 Normal [facility] HEMATOLOGY Segs 55.4 45.0 - 75.0 10/23/2013 Normal [facility] HEMATOLOGY Monocytes 10.2 2.0 - 12.0 10/23/2013 Normal [facility] HEMATOLOGY Lymphocytes 33.3 20.0 - 40.0 10/23/2013 Normal [facility] CHEMISTRY Phosphorus 4.3 2.5 - 4.5 10/22/2013 Normal [facility] CHEMISTRY Magnesium Lvl 2.0 1.8 - 2.4 10/22/2013 Normal [facility] CHEMISTRY eGFR 107 10/22/2013 <sup>2</sup>Result [...] should be multiplied by the estimated BMI. [facility] CHEMISTRY Chloride Lvl 103 95 - 109 10/22/2013 Normal [facility] CHEMISTRY BUN 10 7 - 22 10/22/2013 Normal [facility] CHEMISTRY Glucose Lvl 93 70 - 99 10/22/2013 Normal <sup>5</sup>Interpretive Data: Adult ref erence range values reflect the clinical guidelines
of the [place] [employer]. [facility] CHEMISTRY Sodium Lvl 138 135 - 145 10/22/2013 Normal [facility] CHEMISTRY Potassium Lvl 4.3 3.5 - 5.1 10/22/2013 Normal [facility] CHEMISTRY Creatinine Lvl 0.9 0.5 - 1.4 10/22/2013 Normal [facility] CHEMISTRY Calcium Lvl 8.5 8.5 - 10.5 10/22/2013 Normal [facility] CHEMISTRY CO2 24 24 - 32 10/22/2013 Normal [facility] CHEMISTRY AGAP 15.3 10.0 - 20.0 10/22/2013 Normal [facility] HEMATOLOGY Monocytes # 0.9 0.0 - 0.8 10/22/2013 [facility] HEMATOLOGY Lymphocytes # 2.6 1.0 - 5.5 10/22/2013 Normal [facility] HEMATOLOGY Segs-Bands # 6.4 1.5 - 8.1 10/22/2013 Normal [facility] HEMATOLOGY Basophils 0.2 0.0 - 1.0 10/22/2013 Normal [facility] HEMATOLOGY Eosinophils 0.1 0.0 - 4.0 10/22/2013 [facility] HEMATOLOGY Monocytes 9.0 2.0 - 12.0 10/22/2013 [facility] HEMATOLOGY Lymphocytes 26.1 20.0 - 40.0 10/22/2013 [facility] HEMATOLOGY Segs 64.6 45.0 - 75.0 10/22/2013 [facility] HEMATOLOGY MPV 8.4 7.4 - 10.4 10/22/2013 Normal [facility] HEMATOLOGY Platelet 345 133 - 450 10/22/2013 Normal [facility] HEMATOLOGY RDW 12.8 11.5 - 14.5 10/22/2013 Normal [facility] HEMATOLOGY MCHC 35.0 32.0 - 36.0 10/22/2013 [facility] HEMATOLOGY MCH 32.8 27.0 - 31.0 10/22/2013 [facility] HEMATOLOGY MCV 93.9 80.0 - 94.0 10/22/2013 [facility] HEMATOLOGY Hct 38.2 42.0 - 54.0 10/22/2013 [facility] HEMATOLOGY Hgb 13.3 14.0 - 18.0 10/22/2013 [facility] HEMATOLOGY RBC X 10x6 4.07 4.70 - 6.10 10/22/2013 [facility] HEMATOLOGY WBC X 10x3 9.9 3.7 - 10.4 10/22/2013 Normal [facility] BLOOD BANK RESULTS ABO/Rh O POS 10/21/2013 [facility] BLOOD BANK RESULTS Antibody Scrn [...] should be multiplied by the estimated BMI. [facility] CHEMISTRY ALANINE AMINOTRANSFERASE 1 50 0 - 65 10/15/2013 [facility] CHEMISTRY Albumin Lvl 4.0 3.5 - 5.0 10/15/2013 Normal [facility] CHEMISTRY Total Protein 7.7 6.4 - 8.4 10/15/2013 Normal [facility] CHEMISTRY ASPARTATE TRANSAMINASE 71 0 - 37 10/15/2013 [facility] CHEMISTRY Sodium Lvl 139 135 - 145 10/15/2013 Normal [facility] CHEMISTRY Creatinine Lvl 1.0 0.5 - 1.4 10/15/2013 Normal [facility] CHEMISTRY BUN 10 7 - 22 10/15/2013 Normal [facility] CHEMISTRY Glucose Lvl 89 70 - 99 10/15/2013 Normal <sup>6</sup>Interpretive Data: Adult ref erence range values reflect the clinical guidelines
of the [place] [employer]. [facility] CHEMISTRY Alk Phos 97 39 - 136 10/15/2013 Normal [facility] CHEMISTRY Bili Total 0.5 0.2 - 1.3 10/15/2013 Normal [facility] CHEMISTRY CO2 26 24 - 32 10/15/2013 Normal [facility] CHEMISTRY Potassium Lvl 4.4 3.5 - 5.1 10/15/2013 Normal [facility] CHEMISTRY Calcium Lvl 9.1 8.5 - 10.5 10/15/2013 Normal [facility] CHEMISTRY Chloride Lvl 103 95 - 109 10/15/2013 Normal [facility] CHEMISTRY Globulin 3.7 2.0 - 4.0 10/15/2013 Normal [facility] CHEMISTRY B/C Ratio 10 6 - 25 10/15/2013 Normal [facility] CHEMISTRY AGAP 14.4 10.0 - 20.0 10/15/2013 Normal [facility] CHEMISTRY A/G Ratio 1.1 0.7 - 1.6 10/15/2013 Normal [facility] HEMATOLOGY MPV 8.3 7.4 - 10.4 10/15/2013 Normal [facility] HEMATOLOGY RDW 13.0 11.5 - 14.5 10/15/2013 Normal [facility] HEMATOLOGY MCHC 34.5 32.0 - 36.0 10/15/2013 Normal [facility] HEMATOLOGY Platelet 312 133 - 450 10/15/2013 Normal [facility] HEMATOLOGY WBC X 10x3 7.9 3.7 - 10.4 10/15/2013 Normal [facility] HEMATOLOGY MCV 93.3 80.0 - 94.0 10/15/2013 Normal [facility] HEMATOLOGY MCH 32.2 27.0 - 31.0 10/15/2013 [facility] HEMATOLOGY Hct 40.8 42.0 - 54.0 10/15/2013 LOW [facility] HEMATOLOGY RBC X 10x6 4.37 4.70 - 6.10 10/15/2013 LOW [facility] HEMATOLOGY Hgb 14.1 14.0 - 18.0 10/15/2013 Normal [facility] HEMATOLOGY Basophils # 0.1 0.0 - 0.2 10/15/2013 Normal [facility] HEMATOLOGY Eosinophils # 0.1 0.0 - 0.5 10/15/2013 Normal [facility] HEMATOLOGY Eosinophils 1.7 0.0 - 4.0 10/15/2013 Normal [facility] HEMATOLOGY Segs-Bands # 3.8 1.5 - 8.1 10/15/2013 Normal [facility] HEMATOLOGY Basophils 0.8 0.0 - 1.0 10/15/2013 Normal [facility] HEMATOLOGY Monocytes # 0.9 0.0 - 0.8 10/15/2013 [facility] HEMATOLOGY Lymphocytes # 3.1 1.0 - 5.5 10/15/2013 Normal [facility] HEMATOLOGY Lymphocytes 38.6 20.0 - 40.0 10/15/2013 Normal [facility] HEMATOLOGY Segs 47.6 45.0 - 75.0 10/15/2013 Normal [facility] HEMATOLOGY Monocytes 11.3 2.0 - 12.0 10/15/2013 Normal [facility] URINALYSIS UA Urobilinogen <=1.0 mg/dL 0.1 - 1.0 10/15/2013 [facility] URINALYSIS UA Sq Epi None Seen 10/15/2013 [facility] URINALYSIS UA Nitrite Negat chrissie (10/15/2013 14:00:00) Negati ve 10/15/2013 Normal [facility] URINALYSIS UA Mucus Moder ate /LPF None Seen 10/15/2013 ABN [facility] URINALYSIS UA Leuk Est Negat chrissie (10/15/2013 14:00:00) Negati ve 10/15/2013 Normal [facility] URINALYSIS UA Bili Negat chrissie *NA* (10/15/2013 14:00:00) Negati ve 10/15/2013 [facility] URINALYSIS UA Blood Negat chrissie (10/15/2013 14:00:00) Negati ve 10/15/2013 Normal [facility] URINALYSIS UA Turbidity Clear (10/15/2013 14:00:00) Clear 10/15/2013 Normal [facility] URINALYSIS UA Color Yello w *NA* (10/15/2013 14:00:00) Yellow 10/15/2013 [facility] URINALYSIS UA Protein 10 mg/dL Negative 10/15/2013 ABN [facility] URINALYSIS UA pH 6.0 5.0 - 8.0 10/15/2013 Normal [facility] URINALYSIS UA Glucose Negat chrissie mg/dL Negative 10/15/2013 [facility] URINALYSIS UA Ketones Negat chrissie mg/dL Negative 10/15/2013 [facility] URINALYSIS UA Spec Grav 1.016 <=1.030 10/15/2013 Normal [facility] Pathology Reports No Data Provided for This Section Diagnostic Reports Report Value Date Source Bone Density-Dual Energy Absorptionmetry EXAM: Bone density study, multiple sites; dual photon absorptiometry DATE: 10/28/2014 at 1142 hours. INDICATION: Screening for osteoporosis. TECHNIQUE: Lumbar spine and left hip bone mineral densities were measured using [employer] System. FINDINGS: Lumbar spine: L1-L4 average bone mineral density is 1.111 gm/cm2 with a T score of -0.9. Left hip: The left femoral neck and total hip bone mineral densities are 1.029 and 1.122 gm/cm2 with a T score of -0.3 and 0.1 respectively. IMPRESSION: 1. Borderline normal bone density of the lumbar spine. 2. Normal bone density of the left femor al neck and total left hip. 10/28/2014 [facility] Stomach UGI (barium) Exam: Up per GI swallow exam Reason for Exam: Reflux. Chest pain. Comparison Exam: Chest x-ray 03/11/2014 Discussion: On legal archivist view, there are no dilated loops of [...] seconds. Impression: 1. No evidence seen for gastroesophagea l reflux. Gastric Sleeve surgery appears unremarkable. 05/14/2014 [facility] Chest 1view EXAM: Portable chest x-ray. HISTORY: Chest pain. TECHNIQUE: Portable frontal view of the chest. FINDINGS: Possible COPD. No appreciable pneumonia, edema or pleural effusion. Heart size normal. SL: 12 03/11/2014 [facility] Consultation Notes No Data Provided for This Section Discharge Summaries No Data Provided for This Section History and Physicals No Data Provided for This Section Vital Signs Vital Sign Value Date Comments Source Systolic (mm Hg) 124 03/11/2014 [facility] Heart Rate 75 03/11/2014 [facility] Respitory Rate 20 03/11/2014 [facility] Diastolic (mm Hg) 78 03/11/2014 [facility] BMI Calculated 28.95 03/11/2014 [facility] Height 172.72 cm 03/11/2014 [facility] Weight 86.364 03/11/2014 [facility] Systolic (mm Hg) 137 03/11/2014 [facility] Diastolic (mm Hg) 84 03/11/2014 [facility] Respitory Rate 18 03/11/2014 [facility] Heart Rate 62 03/11/2014 [facility] Temperature Oral (F) 97.7 F 03/11/2014 [facility] Respitory Rate 18 10/23/2013 [facility] Heart Rate 91 10/23/2013 [facility] Diastolic (mm Hg) 90 10/23/2013 [facility] Systolic (mm Hg) 149 10/23/2013 [facility] Temperature Oral (F) 98.7 F 10/23/2013 [facility] Heart Rate 89 10/23/2013 [facility] Respitory Rate 18 10/23/2013 [facility] Systolic (mm Hg) 138 10/23/2013 [facility] Diastolic (mm Hg) 89 10/23/2013 [facility] Temperature Oral (F) 98.7 F 10/23/2013 [facility] Respitory Rate 18 10/23/2013 [facility] Heart Rate 70 10/23/2013 [facility] Systolic (mm Hg) 139 10/23/2013 [facility] Temperature Oral (F) 98.1 F 10/23/2013 [facility] Diastolic (mm Hg) 89 10/23/2013 [facility] Weight 116.818 10/21/2013 [facility] Height 170.18 cm 10/21/2013 [facility] Weight 116.818 10/21/2013 [facility] Height 170.18 cm 10/15/2013 [facility] Encounters Location Location Details Encounter Type Encounter Number Reason For Visit Attending Provider ADM Date DC Date Status Source AUDIT [id number] 11/27/2012 11/28/2012 [facility] EST, Provi nell: GAMAL POMPA, Status: Pen, Time: 12:00 PM [id number] 12/31/19 13 11/28/2012 [facility] Inpatient [id number] MIKE DON 10/21/2013 10/23/2013 Discharged [facility] AUDIT [id number] 11/19/2013 11/19/2013 [facility] POS, Provi nell: MIKE DON, Status: Pen, Time: 10:45 AM [id number] 12/03/19 14 11/19/2013 [facility] [id number] Mamadou Amezcua 03/11/2014 03/11/2014 [facility] [place] [facility] Di[facility] [id number] 01 Mike Don 05/14/2014 05/15/2014 [facility] Dia [facility] [id number] 02 Mike Don 10/28/2014 10/29/2014 [facility] Procedures Procedure Code Date Perfomer Comments Source Arthroscopy of knee<sup>1</sup> [id number] [facility] Hernia repair<sup>2</sup> [id number] [facility] Assessment and Plan No Data Provided for This Section Plan of Care No Data Provided for This Section Social History Social History Date Source Social History TypeResponse Smoking Status Former smoker, Type: Cigarettes, Exposure to Tobacco Smoke None, Cigarette Smoking Last 365 Days No, Reg Smoking Cessation Counseling No 03/11/2014 [facility] Social History TypeResponse Smoking Status Former smoker, Type: Cigarettes, Exposure to Tobacco Smoke None, Cigarette Smoking Last 365 Days No, Reg Smoking Cessation Counseling No 03/11/2014 [facility] Social History TypeResponse Smoking Status Former smoker, Type: Cigarettes, Exposure to Tobacco Smoke None, Cigarette Smoking Last 365 Days No, Reg Smoking Cessation Counseling No 03/11/2014 [facility] Marital History - Currently (Active) Tobacco Use (305.1); (Active) No History of Alcohol Use (Denied) No History of Drug Use (Denied) 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 11/19/2013 [facility] Advance Directives Advance Dir ectives No Advance Directives available. 11/28/2012 [facility] Functional Status No Data Provided for This Section
--- OUTSIDE RECORDS SUMMARY | 2020-04-19 18:20 | XMS REPORT ---
Author Author LORENZO Castro Organization Unknown Address Unknown Phone Care Team Providers Care Manugrapher Name Role Phone DavidYon escalera PP Reason for Referral No Reason for Referral was given. History of Present Illness No HPI available. Problems * Normal Routine History And Physical Adult (V70.0); (Active) * Hypertension (401.9); (Active) * Hyperlipidemia (272.4); (Active) Medication * Metoprolol Succinate ER 50 MG Oral Tablet Extended Release 24 Hour; TAKE 1 TABLET DAILY. (Active) * Calcium TABS; one tablet daily (Active) Allergies and Adverse Reactions * No Known Drug Allergies (Active) Past Medical History * History of Back Pain Comments: acute lower (724.5); (Resolved) * History of Normal Routine History And Physical (V70.0); (Resolved) * History of Myalgia And Myositis (729.1); (Resolved) Procedures Procedure Procedure Date Date Completed Status Hernia Repair - - Resolved Family History * Family history of Denial Of Any Significant Medical History (Active) Social History * Marital History - Currently (Active) * Tobacco Use (305.1); (Active) * No History of Alcohol Use (Denied) * No History of Drug Use (Denied) * 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 Encounters * AUDIT 11/19/2013 * POS, Provider: MIKE FINNEGAN, Status: Mohan, Time: 10:45 AM 12/03/2013
--- OUTSIDE RECORDS SUMMARY | 2020-04-19 18:21 | XMS REPORT | Continuity of Care Document ---
Author Author [facility] t Organization [facility] Address [address] [place] [address] Phone Unavailable Care Team Providers Care Health Support Specialist Name Role Phone TONIO CHAO NP PCP Cirilo BERGER Attphys Unavailable DR LEONARDO LAU Attphys Unavailable TONIO CHAO NP Attphys Unavailable MIKE DON M.D. Attphys Unavailable BABAR KWON M.D. Attphys Unavailable ANIL ROBERSON NP Attphys Unavailable Prince Don Attphys Boris Amezcua Attphys Cirilo BERGER Admphys Unavailable DR LEONARDO LAU Admflorecita Unavailable Payers Payer Name Policy Type Policy Number Effective Date Expiration Date Cirilo skinner [facility] [id number] 2006 00:00:0 0 [facility] Problems Condition Name Condition Details Condition Category Status Onset Date Resolution Date Last Treatment Date Treating Clinician Comments Source Chest pain Chest pain Problem Active 2015-07-15 00:00:00 [facility] CHEST PAIN CHES T PAIN Active 03/11/2014 [facility] Diagnosis Active 2014-03-11 00:00:00 2014-03-11 18:25:00 [facility] MORBID OBESITY MORB ID OBESITY Active 10/06/2013 [facility] Diagnosis Active 2013-10-06 00:00:00 2013-10-21 0 7:45:00 [facility] Need for influenza vaccination Need for influenza vaccinatio n Problem HL7.CCDAR2 Active [facility] Primary dysthymia Primary dysthymia Problem HL7.CCDAR2 Active [facility] Dyslipidemia Dyslipidemia Problem HL7.CCDAR2 Active [facility] Conjunctivitis, bacterial Conjunctivitis, bacterial Problem HL7.CCDAR 2 Active [facility] Puncture wound, hand Puncture wound, hand Problem HL7.CCDAR2 Active [facility] Cellulitis of hand Cellulitis of hand Problem HL7.CCDAR2 Active [facility] GERD without esophagitis GERD without esophagitis Problem HL7.CCDAR2 A ctive [facility] Insomnia Insomnia Problem HL7.CCDAR2 Active [facility] Vitamin D deficiency Vitamin D deficiency Problem HL7.CCDAR2 Active [facility] Plantar fasciitis of left foot Plantar fasciitis of left love t Problem HL7.CCDAR2 Active [facility] BMI 29.0-29.9,adult BMI 29.0-29.9,adult Problem HL7.CCDAR2 Active [facility] Pulmonary embolism Pulmonary emboli Problem Active [facility] Hiatal hernia (disorder) Hiat al hernia (disorder) Resolved Problem 10/31/2014 [facility], BILLY [place],[facility] Problem Resolved 2014-10-31 03:52:22 [facility] Hypertensive disorder, systemic arterial (disorder) Hypertensive disorder, systemic arterial (disorder) Resolved Problem 10/31/2014 [facility], BILLY [place],[facility] Problem Resolved 2014-10-31 03:52:22 [facility] Morbid obesity (disorder) Morb id obesity (disorder) Resolved Problem 10/31/2014 [facility], BILLY [place],[facility] Problem Resolved 201 02-22-20 03:52:22 [facility] Obstructive sleep apnea syndrome (disorder) Obstructive sleep apnea syndrome (disorder) Resolved Problem 10/31/2014 [facility], BILLY [place],[facility] Problem Resolved 2014-10-31 03:52:22 [facility] Osteoarthritis (disorder) Oste oarthritis (disorder) Resolved Problem 10/31/2014 [facility], BILLY [place],[facility] Problem Resolved 201 02-22-20 03:52:22 [facility] Reflux (finding) Refl ux (finding) Resolved Problem 10/31/2014 [facility], OPID [place],[facility], [facility] Problem Resolved 2014-10-31 03:52:22 Tiffany Lofton Hypertension Hype rtension Active 11/19/2013 [facility] Problem Active 2013-11-19 17:42:15 Wade Lofton Hyperlipidemia Hype rlipidemia Active 11/19/2013 [facility] Problem Active 2013-11-19 17:42:15 M anoop Lofton MORBID OBESITY MORB ID OBESITY Active [facility] Diagnosis Active 2013-10-21 07:45:00 Ct lina Lofton Discharge Diagnosis: chest pain Discharge Diagnosis: chest pain 03/11/2014 03/14/2014 [facility] Problem 2014-03-11 05:00:00 2014-03-14 00:47:19 2014-03-14 00:47:19 M anoop Lofton Allergies, Adverse Reactions, Alerts Allergy Name Allergy Type Status Severity Reaction(s) Onset Date Inacti ve Date Treating Clinician Comments Source Not Known Not Known Active Wade Lofton No Known Drug Allergies No Known Drug Allergies Active Jonny Lofton Family History Family Member Diagnosis Comments Start Date Stop Date Source Mother Family history of diabetes mellitus [facility] Mother Family history of hypertension [facility] Unknown Family Member Family History 2013-11-19 17:42:15 2 17:42:15 Jonny Lofton Social History Social Habit Start Date Stop Date Quantity Comments Source Social History 2013-11-19 17:42:15 2013-11-19 17:42:15 Jonny Lofton Smoking Status Start Date Stop Date Source Social History 2014-03-11 19:40:34 2014-03-11 19:40:34 [place]ny [place] Medications Ordered Medication Name Filled Medication Name Start Date Stop Da te Current Medication? Ordering Clinician Indication Dosage Frequency Signature (SIG) Comments Components Source PredniSONE 10 MG Oral Tablet PredniSONE 10 MG Oral Tablet 00:00:00 Yes TONIO CHAO N.P. 1 tab po daily x7 days [facility] Diclofenac-Misoprostol 75-0.2 MG Oral Tablet Delayed R elease Diclofenac- Misoprostol 75-0.2 MG Oral Tablet Delayed Release 2018-08-13 00:00:00 Yes TONIO CHAO N.P. QD TAKE 1 TABLET DAILY in am [facility] Vitamin D (Ergocalciferol) 56324 UNIT Oral Capsule Vit taylor D (Ergocalciferol) 20788 UNIT Oral Capsule 2018-04-10 00:00:00 Yes GAMAL POMPA N.PWander Take 1 capsule two times per week [facility] Vitamin B Complex Oral Tablet Vitamin B Complex Oral Tablet 2015 00:00:00 Yes ANIL Mir.P. 1 QD TAKE 1 TABLET DAILY. [facility] Centrum Ultra Mens Oral Tablet Centrum Ultra Mens Oral Table t 2016-09-21 00:00:00 Yes ANIL Mir.P. 1 QD TAKE 1 TABLET DAILY. [facility] Pantoprazole Sodium 40 MG Oral Tablet Delayed Release Pantoprazole Sodium 40 MG Oral Tablet Delayed Release 2016-09-21 00:00:00 Yes TONIO JOHN N.PWander TAKE 1 TABLET BY MOUTH DAILY 1 HOUR BEFORE A MEAL [facility] Nitroglycerin 0.4 MG Sublingual Tablet 2014-03-11 22:54:00 Yes 0.4 mg = 1 tab, SL, Q5Min, Chest pain, # 100 tab, 0 Refill(s) Jonny Lofton Aspirin 81 MG Chewable Tablet 2014-03-11 20:07:00 No Notes: Take with food. Jonny Lofton Saline Flush 0.9% 2014-03-11 20:07:00 No Notes: (Same as: BD Posiflush) Jonny Lofton Metoprolol Succinate ER 50 MG Oral Tablet Extended Release 2 4 Hour 2013-11-19 17:42:15 Yes (Active) Franc Lofton Calcium TABS 2013-11-19 17:42:15 Yes (Activ e) Jonny Lofton docusate sodium 150 mg/15 mL oral liquid 2013-10-23 18:38: 00 Yes Bhargavi Hoyt Traylor 100 mg = 10 ml, PO, Daily, # 240 m l, 0 Refill(s) Jonny Lofton acetaminophen-hydrocodone 325 mg-7.5 mg/15 mL oral solution 2013-10-23 18:38:00 Yes Bhargavi Hoyt Traylor 15 ml, PO, Q4H, Pain, # 420 mL, 0 Refill(s) Jonny Lofton acetaminophen-hydrocodone 300 mg-10 mg/15 mL oral liquid 2013-10-22 15:32:00 No Bhargavi Traylor 15 mL, Route: PO, Drug Form: SOLN, Dosing Weight 116.818, kg, Q4H, PRN Pain, Start date: 10/22/13 9:32:00, Duration: 30 day, Stop date: 11/21/13 9:31:00Do not exceed 4gm/day of acetaminophen. (Same as: Zolvit) [facility] heparin 2013-10-22 14:00:00 No Ran Roger 5,000 unit, 1 mL, Route: SUB-Q, Drug form: INJ, Q8H, Start date: 10/22/13 8:00:00, Duration: 30 day, Stop date: 11/21/13 0:00:00porcine heparin [facility] Mefoxin 2013-10-22 00:30:00 No Ran Roger 2 gm, Route: IVPB, Drug form: INJ, ABXQ8H, Start date: 10/21/13 18:30:00, Duration: 2 doses or times, Stop date: 10/22/13 2:30:00(Same As: Mefoxin) [facility] ketorolac 30 mg/mL injectable solution 2013-10-22 00:00:00 No Kvng Gordon 30 mg, 1 mL, Rou te: IV, Drug form: INJ, Q6H, Dosing Weight 116.818, kg, Start date: 10/21/13 18:00:00, Duration: 4 day, Stop date: 10/25/13 12:00:00(Same as:Toradol) IV bolus must be given >15 seconds. Give IM administration slowly and deeply into the muscle. Not for use > 4 days [facility] 2013-10-22 00:00:00 No Ran Roger 1,000 mg, 100 mL, Route: IV, Drug form: INJ, Q6H, Start date: 10/21/13 18:00:00, Duration: 48 hr, Stop date: 10/25/13 12:00:00Infuse over 15 minutes Do not exceed 4gm/day of acetaminophen [facility] Protonix 2013-10-21 22:30:00 No Ran Roger 40 mg, Route: IVP, Drug form: INJ, Before Dinner, Start date: 10/21/13 16:30:00, Duration: 30 day, Stop date: 11/19/13 16:30:00For IV push reconstitute with 10 ml 0.9% sodium chloride and push over 2 minutes. (Same as: Protonix) Jonny Lofton Dilsherri 2013-10-21 21:53:00 No Bhargavi Souza g 0.2 mg, 0.1 mL, Route: IV, Drug form: INJ, Q4H, PRN Pain, Start date: 10/21/13 15:53:00, Duration: 30 day, Stop date: 11/20/13 15:52:00Same as: [facility] Zofred 2013-10-21 21:51:00 No Ran Roger 4 mg, 2 mL, Route: IVP, Drug form: INJ, Q6H, PRN Nausea & Vomiting, Start date: 10/21/13 15:51:00, Duration: 30 day, Stop date: 11/20/13 15:50:00(Same as: Zofran) [facility] Lactated Ringers Injection IV 1,000 mL 2013-10-21 21:42:00 No Bhargavi Traylor 1,000 mL, Rate: 100 ml/hr, Infuse over: 10 hr, Route: IV, Dosing Weight 116.818 kg, Total Volume: 1,000, Start date: 10/21/13 15:42:00, Stop date: 11/20/13 15:41:00 Jonny dewey acetaminophen-hydrocodone 300 mg-10 mg/15 mL oral liquid 2013-10-21 17:11:00 No Ronitjoel Maat 15 mL, Ro lime: PO, Dosing Weight 116.818, kg, ONCE, Start date: 10/21/13 11:11:00, Stop date: 10/21/13 11:11:00 Jonny Lofton hydromorphone 2013-10-21 17:11:00 No Ronit Mata 0.5 mg, Route: IVP, Q5Min, Dosing Weight 116.818, kg, PRN Pain Score 7-10, Start date: 10/21/13 11:11:00, Duration: 4 doses or times, Stop date: Limited # of times [facility] flumazenil 2013-10-21 17:11:00 No Ronit S [place] 0.2 mg, Route: IVP, PRN, Dosing Weight 116.818, kg, PRN Benzodiazepine Reversal, Initial dose, Start date: 10/21/13 11:11:00, Duration: 30 day, Stop date: 11/20/13 11:10:00 [facility] metoprolol 2013-10-21 17:11:00 No Ronit S [place] 1 mg, Route: IVP, Q5Min, Dosing Weight 116.818, kg, PRN Other -See Comment, Start date: 10/21/13 11:11:00, Duration: 5 doses or times, Stop date: Limited # of times [facility] labetalol 2013-10-21 17:11:00 No Ronit S [place] 10 mg, Route: IVP, Q5Min, Dosing Weight 116.818, kg, PRN Elevated BP, Start date: 10/21/13 11:11:00, Duration: 5 doses or times, Stop date: Limited # of times [facility] naloxone 2013-10-21 17:11:00 No Ronit S Adolfo 0.04 mg, Route: IVP, Q2MIN, Dosing Weight 116.818, kg, PRN Narcotic Reversal, Start date: 10/21/13 11:11:00, Duration: 8 doses or times, Stop date: Limited # of times [facility] promethazine 2013-10-21 17:11:00 No Ronit S Adolfo 6.25 mg, Route: IVPB, ONCE, Dosing Weight 116.818, kg, PRN Nausea & Vomiting, Start date: 10/21/13 11:11:00 [facility] OXYcodone 5 mg/5 mL oral solution 2013-10-21 17:11:00 No Ronit S [place] 5 mg, Route: NG, Q4H, Dosing Weight 116.818, kg, PRN Pain Score 4-6, Start date: 10/21/13 11:11:00, Duration: 30 day, Stop date: 11/20/13 11:10:00 [facility] ondansetron 2013-10-21 17:11:00 No Ronit S [place] 4 mg, Route: IVP, ONCE, Dosing Weight 116.818, kg, PRN Nausea & Vomiting, Start date: 10/21/13 11:11:00 [facility] bupivacaine liposome 2013-10-21 16:10:00 Yes Mike Bhakta on 20 mL, Route: InFILtration(local), Drug Form: INJ, [...] (total dose = 30 mL [266 mg]) [facility] heparin 2013-10-21 14:47:00 No Mike Don 5,000 unit, 1 mL, Route: SUB-Q, Drug form: INJ, PRE OP, Priority: NOW, Start date: 10/21/13 8:47:00, Duration: 1 doses or times, Stop date: 10/22/13 0:00:00porcine heparin [facility] scopolamine 2013-10-21 14:46:00 No Mike Don 1 patch, Route: TOP, Drug form: ERFILM, PRE OP, Priority: NOW, Start date: 10/21/13 8:46:00, Duration: 1 doses or times, Stop date: 10/22/13 0:00:00Change patch every 72 hours (Same as: Transderm-Scop) Arnold swan [place] Mefoxin 2013-10-21 14:45:00 No Mike Don 2 gm, Route: IVPB, Drug form: INJ, PRE OP, Priority: NOW, Start date: 10/21/13 8:45:00, Duration: 1 doses or times, Stop date: 10/22/13 0:00:00(Same As: Mefoxin) [facility] Fish Oil 1000 mg oral capsule 2013-10-16 14:38:00 No 0 Refill(s) [facility] calcium-vitamin D 250 mg-125 units oral tablet 2013-10-16 14:38: 00 Yes 1 tab, PO, TID, # 90 tab, 0 Refill(s) Jonny Lofton Vitamin B12 100 mcg oral tablet 2013-10-16 14:38:00 Yes 100 microgram = 1 tab, PO, Daily, # 90 tab, 0 Refill(s) Jonny Simonsann metoprolol tartrate 100 mg oral tablet 2013-10-16 14:38:00 No 100 mg = 1 tab, PO, BID, # 180 tab, 0 Refill(s) Jonny Simonsann No Active Medications 2012-11-28 02:44:10 Yes No Active Medications [facility] Nitroglycerin (Nitrostat) 0.4 Mg Tab.subl Nitroglyceri n (Nitrostat) 0.4 Mg Tab.subl Yes .4 Every 5 Minutes as needed for Chest Pain [facility] Pantoprazole Sodium (Protonix) 40 Mg Tablet. Pantopr azole Sodium (Protonix) 40 Mg Tablet. Yes 40 Daily [facility] Rivaroxaban (Xarelto) 20 Mg Tablet Rivaroxaban (Xarelto) 20 Mg Tablet Yes 15 Twice A Day [facility] Immunizations Ordered Immunization Name Filled Immunization Name Date Status Comments Source Fluzone Quadrivalent 0.5 ML Intramuscular Suspension 2016-08-24 15:19:00 Completed [facility] Td (adult), unspecified formulation Unknown Completed Approx [id number] [facility] Vital Signs Vital Name Observation Time Observation Value Comments Source BP Systolic 2018-08-13 10:17:00 106 mm[Hg] Location: LUE; Positi on: Sitting [facility] BP Diastolic 2018-08-13 10:17:00 64 mm[Hg] Location: LUE; Positi on: Sitting [facility] Height 2018-08-13 10:17:00 67 [in_us] [facility] Weight 2018-08-13 10:17:00 188 [lb_av] [facility] Body Mass Index Calculated 2018-08-13 10:17:00 29.45 kg/m2 [facility] Temperature 2018-08-13 10:17:00 98.6 [degF] Method: Temporal [facility] Respiration Rate 2018-08-13 10:17:00 16 /min [facility] Heart Rate 2018-08-13 10:17:00 71 /min [facility] Systolic (mm Hg) 2014-03-11 20:07:00 Wade [facility] Heart Rate 2014-03-11 20:07:00 [facility] Respitory Rate 2014-03-11 20:07:00 [facility] [place] Diastolic (mm Hg) 2014-03-11 20:07:00 Mem [facility] [place] BMI Calculated 2014-03-11 19:28:00 [facility] [place] Height 2014-03-11 19:28:00 172.72 cm [facility] [place] Weight 2014-03-11 19:28:00 [facility] Systolic (mm Hg) 2014-03-11 19:28:00 Wade rial [facility] Diastolic (mm Hg) 2014-03-11 19:28:00 Mem [facility] Respitory Rate 2014-03-11 19:28:00 [facility] Heart Rate 2014-03-11 19:28:00 [facility] Temperature Oral (F) 2014-03-11 19:28:00 97.7 F [facility] [place] Respitory Rate 2013-10-23 18:24:00 [facility] Heart Rate 2013-10-23 18:24:00 [facility] [place] Diastolic (mm Hg) 2013-10-23 18:24:00 Mem [facility] Systolic (mm Hg) 2013-10-23 18:24:00 Wade rial [place] Temperature Oral (F) 2013-10-23 18:24:00 98.7 F [facility] Heart Rate 2013-10-23 14:53:00 [facility] [place] Respitory Rate 2013-10-23 14:53:00 [facility] [place] Systolic (mm Hg) 2013-10-23 14:53:00 Wade rial [place] Diastolic (mm Hg) 2013-10-23 14:53:00 Mem [facility] Temperature Oral (F) 2013-10-23 14:53:00 98.7 F [facility] Respitory Rate 2013-10-23 04:50:00 [facility] [place] Heart Rate 2013-10-23 04:50:00 [facility] [place] Systolic (mm Hg) 2013-10-23 04:50:00 Wade rial [facility] Temperature Oral (F) 2013-10-23 04:50:00 98.1 F [facility] Diastolic (mm Hg) 2013-10-23 04:50:00 Mem [facility] [place] Weight 2013-10-21 23:42:00 [facility] [place] Height 2013-10-21 23:42:00 170.18 cm [facility] [place] Weight 2013-10-21 14:02:00 [facility] [place] Height 2013-10-15 21:42:00 170.18 cm [facility] Procedures Procedure Date / Time Performed Performing Clinician [facility] Computed tomography of chest with contrast 2019-08-04 00:00:00 MC FREEMAN [facility] Computed tomography of chest with contrast 2019-08-02 00:00:00 MANN DARLING [facility] XRAY Foot series [id number] 2018-08-13 00:00:00 [facility] Arthroscopy of knee<sup>1</sup> [facility] Hernia repair<sup>2</sup> [facility] Encounters Start Date/Time End Date/Time Encounter Type Admission Type Attendi [facility] Care Department Encounter ID Source 2019-08-02 09:56:00 2019-08-05 10:16:00 Discharged Inpatient 1 CELINE [facility] [id number] [facility] 2019-08-02 06:47:00 2019-08-02 06:47:00 Registered Emergency Room [facility] [id number] [facility] 2019-07-28 06:10:00 2019-07-28 10:10:00 Outpatient Mallory [facility] [id number] [facility] 2018-08-13 09:45:00 2018-08-13 09:45:00 Appointment; WOOD CHAO NP HOANG, CHRISTINA, NP [facility] [address] [id number] [facility] 2018-04-03 10:45:00 2018-04-03 10:45:00 Appointment; MIKE DON M.D. WILSON, ERIK, M.D. UTP UTP [id number] [facility] 2017-10-03 13:30:00 2017-10-03 13:30:00 Appointment; WOOD CHAO NP HOANG, CHRISTINA, NP UTP UTP [id number] [facility] 2017-05-24 09:30:00 2017-05-24 09:30:00 Appointment; BABAR KWON M.D. VAZQUEZ, NOEMI, M.D. UTP UTP [id number] [facility] 2017-03-13 09:45:00 2017-03-13 09:45:00 Appointment; WOOD CHAO NP HOANG, CHRISTINA, NP UTP UTP [id number] [facility] 2016-09-21 13:15:00 2016-09-21 13:15:00 Appointment; ANIL ROBERSON N P ELLIS, MARK, NP UTP UTP [id number] [facility] 2016-08-24 14:00:00 2016-08-24 14:00:00 Appointment; ANIL ROBERSON N P ELLIS, MARK, NP UTP UTP [id number] [facility] 2014-10-28 10:50:00 2014-10-28 23:59:00 Outpatient Mike DonIE [facility] [id number] 2014-05-14 08:40:00 2014-05-14 23:59:00 Outpatient Mike DonIE [facility] [id number] 2014-03-11 14:20:00 2014-03-11 18:22:00 Outpatient Mamadou Amezcua [facility] [id number] 2013-11-19 11:42:15 2013-11-19 11:42:15 Outpatient MHIE [facility]IE [id number] 2013-10-21 07:45:00 2013-10-23 15:10:[id number] [facility] 2012-11-27 20:44:26 2012-11-27 20:44:10 Outpatient MHIE [facility]IE [id number] Results Test Description Test Time Test Comments Results Result Comments Source Creatine Kinase MB 2019-08-04 14:29:00 Test Item Creatine Kinase MB (test code = 79833-3) 0.20 0-5.0 [facility] [id number] 14:29:00* Test Item Value Reference Range Interpretation Comments Troponin I (test code = XXS2724) < 0.001 0-0.300 [facility] [id number] 14:21:00* Test Item Value Reference Range Interpretation Comments Creatine Kinase (test code = 2157-6) 25 30-200 L [facility] [id number] 09:02:00 [facility] [address] [address] Patient Name: LORENZO SPARKS MR #: [id number] : 1975 Age/Sex: 43/M Req #: [id number] Adm Physician: MC BERGER MD Ordered by: MC BERGER MD Report #: [id number] Location: [facility] Room/Bed: [facility] Procedure: [id number] CT/CT CHEST W Exam Date: 08/04/19 Exam Time: 0840 REPORT STATUS: Signed EXAM: CT est WITH contrast- Pulmonary Embolism Protocol INDICATION: Shortness of jordi ath, left chest pain, known pulmonary emboli. COMPARISON: Chest CT of 08/02 TECHNIQUE: Chest was scanned utilizing a multidetector helical scan ner from the lung apex through the level of the diaphragm after administration of IV contrast. Thin section reconstructions were obtained with special bhupendra ntration on the pulmonary arteries. Coronal and sagittal reformations were obt ained. Pulmonary embolism protocol was performed. IV CONTRAST: 10 0 cc of Isovue 370 RADIATION DOSE: Total DLP: 499.8 mGy*cm Dose modulation, iterative reconstruction, and/or weight based adjustme nt of the mA/kV was utilized to reduce the radiation dose to as low as reasona penny achievable. COMPLICATIONS: None FINDINGS: LINES / TUBES: None. PULMONARY ARTERIES: Again seen are multiple segmental and mcconnell bsegmental filling defects involving the right upper, middle, and lower lobe p ulmonary arteries consistent with known multifocal pulmonary embolism. Overall , clot burden is similar or slightly decreased compared to the prior exam of . No new or enlarging pulmonary emboli. Specifically, no left-sided pu lmonary embolism. The main pulmonary artery measures up to 2.6 cm. LUNGS AND AIRWAYS: The central airways are patent. Unchanged bibasilar dependent mcconnell bsegmental atelectasis. No new focal consolidation. PLEURA: No pleural effu kamran or pneumothorax. HEART AND MEDIASTINUM: The thyroid gland is normal. No supraclavicular, mediastinal, or axillary lymphadenopathy. Unchanged heart size. No evidence of right heart strain. There is no pericardial effusion. . UPPER ABDOMEN: Limited contrast-enhanced views of the upper abdomen de monstrate no focal abnormality in the partially visualized liver, spleen, gall bladder, pancreas, or adrenal glands. Unchanged 5 mm left upper pole renal debra culus. BONES: No acute osseous injury. Mild degenerative changes of the vis ualized spine. No suspicious lytic or blastic lesions. SOFT TISSUES: Unre markable. IMPRESSION: Stable segmental and subsegmental right pulmonary emboli. No new or worsening pulmonary embolism. Unchanged bibasilar subse gmental atelectasis. Unchanged left upper pole renal calculus. Signed by: Timothy Gaitan MD on 08/04/2019 9:13 AM Dictated By: TIMOTHY GAITAN MD Elect ronically Signed By: TIMOTHY GAITAN MD on 08/04/19912 Transcribed By: MINA on 08/04/19912 COPY TO: MC BERGER MD White Blood Count 2019-08-03 07:01:00* Test Item Value Reference Range Interpretation Comments White Blood Count (test code = 6690-2) 9.74 4.8-10.8 [facility] [id number] 07:01:00* Test Item Value Reference Range Interpretation Comments Red Blood Count (test code = 789-8) 4.22 4.3-5.7 L [facility] 07:01:00* Test Item Value Reference Range Interpretation Comments Hemoglobin (test code = 24967-3) 13.7 14.0-18.0 L [facility]2019-09-22 07:01:00* Test Item Value Reference Range Interpretation Comments Hematocrit (test code = 4544-3) 40.3 38.2-49.6 [facility] [id number] 07:01:00* Test Item Value Reference Range Interpretation Comments Mean Corpuscular Volume (test code = 787-2) 95.5 81-99 [facility] Corp[facility] [id number] 07:01:00* Test Item Value Reference Range Interpretation Comments Mean Corpuscular Hemoglobin (test code = 785-6) 32.5 28-32 [facility] CenterMean Corpuscular Hemoglobin Concent 2019-08-03 07:01:00* Test Item Value Reference Range Interpretation Comments Mean Corpuscular Hemoglobin Concent (test code = 786-4) 34.0 31-35 [facility] CenterRed Cell Distribution Unhhf3296-68-69 07:01:00* Test Item Value Reference Range Interpretation Comments Red Cell Distribution Width (test code = 46972-0) 12.2 11.7 -14.4 [facility] CenterPlatelet Auiyx2416-22-31 07:01:00* Test Item Value Reference Range Interpretation Comments Platelet Count (test code = 777-3) 290 140-360 [facility] CenterNeutrophils (%) (Auto)2019-08-03 07:01:00 * Test Item Value Reference Range Interpretation Comments Neutrophils (%) (Auto) (test code = 37233-6) 70.9 38.7-80.0 [facility] CenterLymphocytes (%) (Auto)2019-08-03 07:01:00 * Test Item Value Reference Range Interpretation Comments Lymphocytes (%) (Auto) (test code = 736-9) 17.9 18.0-39.1 L [facility] CenterMonocytes (%) (Auto)2019-08-03 07:01:00* Test Item Value Reference Range Interpretation Comments Monocytes (%) (Auto) (test code = 5905-5) 9.4 4.4-11.3 [facility] CenterEosinophils (%) (Auto)2019-08-03 07:01:00 * Test Item Value Reference Range Interpretation Comments Eosinophils (%) (Auto) (test code = 713-8) 1.1 0.0-6.0 [facility] CenterBasophils (%) (Auto)2019-08-03 07:01:00* Test Item Value Reference Range Interpretation Comments Basophils (%) (Auto) (test code = 706-2) 0.4 0.0-1.0 [facility] CenterIM GRANULOCYTES %2019-08-03 07:01:00* Test Item Value Reference Range Interpretation Comments IM GRANULOCYTES % (test code = IM GRANULOCYTES %) 0.3 0.0- 1.0 [facility] CenterNeutrophils # (Auto)2019-08-03 07:01:00* Test Item Value Reference Range Interpretation Comments Neutrophils # (Auto) (test code = 751-8) 6.9 2.1-6.9 [facility] CenterLymphocytes # (Auto)2019-08-03 07:01:00* Test Item Value Reference Range Interpretation Comments Lymphocytes # (Auto) (test code = 07753-3) 1.7 1.0-3.2 [facility] CenterMonocytes # (Auto)2019-08-03 07:01:00* Test Item Value Reference Range Interpretation Comments Monocytes # (Auto) (test code = 742-7) 0.9 0.2-0.8 [facility] CenterEosinophils # (Auto)2019-08-03 07:01:00* Test Item Value Reference Range Interpretation Comments Eosinophils # (Auto) (test code = 711-2) 0.1 0.0-0.4 [facility] CenterBasophils # (Auto)2019-08-03 07:01:00* Test Item Value Reference Range Interpretation Comments Basophils # (Auto) (test code = 704-7) 0.0 0.0-0.1 [facility] CenterAbsolute Immature Granulocyte (auto 2019-08-03 07:01:00* Test Item Value Reference Range Interpretation Comments Absolute Immature Granulocyte (auto (sara t code = Absolute Immature Granulocyte (auto) 0.03 0-0.1 [facility]odium Wvilh3096-03-34 06:43:00* Test Item Value Reference Range Interpretation Comments Sodium Level (test code = 2951-2) 139 136-145 [facility] CenterPotassium Ytena2729-41-25 06:43:00* Test Item Value Reference Range Interpretation Comments Potassium Level (test code = 2823-3) 4.3 3.5-5.1 [facility] CenterChloride Qaexl4320-88-39 06:43:00* Test Item Value Reference Range Interpretation Comments Chloride Level (test code = 2075-0) 103 98-107 [facility] CenterCarbon Dioxide Wyrul9186-86-45 06:43:00* Test Item Value Reference Range Interpretation Comments Carbon Dioxide Level (test code = 2028-9) 29 22-29 [facility] CenterAnion Vmc8015-28-65 06:43:00* Test Item Value Reference Range Interpretation Comments Anion Gap (test code = 11017-7) 11.3 8-16 [facility] CenterBlood Urea Hccycmoy8354-59-79 06:43:00* Test Item Value Reference Range Interpretation Comments Blood Urea Nitrogen (test code = 3094-0) 10 7-26 [facility] CenterCreatinine2019-09-22 06:43:00* Test Item Value Reference Range Interpretation Comments Creatinine (test code = 2160-0) 0.97 0.72-1.25 [facility] CenterBUN/Creatinine Nbcao5765-87-84 06:43:00* Test Item Value Reference Range Interpretation Comments BUN/Creatinine Ratio (test code = 3097-3) 10 6-25 [facility] CenterEstimat Glomerular Filtration Rate 2019-08-03 06:43:00* Test Item Value Reference Range Interpretation Comments Estimat Glomerular Filtration Rate (test code = 824544177) > 60 >60 Ranges were taken from the National Kidney Disease Education Program and the [facility] Foundation literature.Reference ranges:60 or greater: Zcrbwm90-53 ( for 3 consecutive months): Chronic kidney disease 15 or less: Kidney failureLaredo Medical CenterGlucose Damxs3461-05-88 06:43:00* Test Item Value Reference Range Interpretation Comments Glucose Level (test code = WBM1336) 93 74-118 [facility] CenterCalcium Vappi0876-60-89 06:43:00* Test Item Value Reference Range Interpretation Comments Calcium Level (test code = 70003-4) 9.2 8.4-10.2 [facility] CenterTotal Wrqteedym5163-12-54 06:43:00* Test Item Value Reference Range Interpretation Comments Total Bilirubin (test code = 1975-2) 0.7 0.2-1.2 [facility] CenterAspartate Amino Transf (AST/SGOT) 2019-08-03 06:43:00* Test Item Value Reference Range Interpretation Comments Aspartate Amino Transf (AST/SGOT) (test code = Aspartate Amino Transf (AST/SGOT)) 21 5-34 [facility] CenterAlanine Aminotransferase (ALT/SGPT) 2019-08-03 06:43:00* Test Item Value Reference Range Interpretation Comments Alanine Aminotransferase (ALT/SGPT) (test code = 1742-6) 18 0-55 [facility] CenterTotal Akrzxvv9479-01-09 06:43:00* Test Item Value Reference Range Interpretation Comments Total Protein (test code = 2885-2) 6.6 6.5-8.1 [facility] CenterAlbumin2019-09-22 06:43:00* Test Item Value Reference Range Interpretation Comments Albumin (test code = 1751-7) 3.2 3.5-5.0 L [facility] CenterGlobulin2019-09-22 06:43:00* Test Item Value Reference Range Interpretation Comments Globulin (test code = 04219-3) 3.4 2.3-3.5 [facility] CenterAlbumin/Globulin Xnjki4499-64-69 06:43:00 * Test Item Value Reference Range Interpretation Comments Albumin/Globulin Ratio (test code = 1759-0) 0.9 0.8-2.0 [facility] CenterAlkaline Tswlcqrzvva5158-99-46 06:43:00* Test Item Value Reference Range Interpretation Comments Alkaline Phosphatase (test code = 6768-6) 68 40-150 [facility] CenterTriglycerides Ehmsu9293-22-85 06:43:00* Test Item Value Reference Range Interpretation Comments Triglycerides Level (test code = 2571-8) 78 0-149 [facility] CenterCholesterol Bxnyp6813-52-16 06:43:00* Test Item Value Reference Range Interpretation Comments Cholesterol Level (test code = 2093-3) 143 0-199 Less than 200 mg/dL Low Zvjd289 - 239 mg/dL Borderline Pqcc937 m g/dl and greater High Risk [facility] CenterLDL Awhreryesxr5195-36-37 06:43:00* Test Item Value Reference Range Interpretation Comments LDL Cholesterol (test code = 2089-1) 81 60-130 [facility] CenterHDL Tvatqpdvvol5263-10-82 06:43:00* Test Item Value Reference Range Interpretation Comments HDL Cholesterol (test code = 2085-9) 46 40-60 [facility] CenterCholesterol/HDL Wstze8473-55-71 06:43:00 * Test Item Value Reference Range Interpretation Comments Cholesterol/HDL Ratio (test code = 9830-1) 3.1 3.9-4.7 L [facility] CenterCT CHEST N8033-37-14 09:04:00 [facility] [address] [place] [address] Patient Name: LORENZO SPARKS MR #: [id number] : 1975 Age/Sex: 43/M Req #: [id number] Adm Physician: Ordered by: MANN FLANAGAN MD Report #: [id number] Location: ER Room/Bed: Procedure: [id number] CT /CT CHEST W Exam Date: 08/02/19 Exam Time: 08 REPORT STATUS: Signed EXAMINATION: C T of the chest with contrast, PE protocol. TECHNIQUE: Spiral CT images of the chest were performed from the lung apices through the level of the adrenal glands after the IV administration of 100 cc of Isovue-370 Thin section recon structions were obtained with special concentration on the pulmonary arteries. COMPARISON: Chest radiograph 08/02/2019 CLINICAL HISTORY:Shortness of breath, knee surgery 5 days ago DISCUSSION: Vasculature: Filling defects in the right upper lobe pulmonary artery (series 2 image 39). Similar filling defects are also noted within the medial segmental artery of the right middle lobe (series 2 image 61), as well as multiple segmental pulmonary grant florina of the right lower lobe, for example on series 2 image 56, 58, and 64. Th e pulmonary outflow tract is of normal caliber. No right ventricular dilatatio n or intraventricular septal bowing. No ectasia or aneurysmal dilatation of th e thoracic aorta. Lungs: Linear and groundglass opacities in the lower lob es compatible with subsegmental atelectasis. No consolidation or bronchiectasi s. Trachea, mainstem bronchi, and lobar and segmental bronchi are patent. Airways: <The major airways are clear.> Pleura: <There is no evidence of pleural effusion or pneumothorax.> Heart and mediastinum: No axillary, hilar, or mediastinal lymphadenopathy. Abdomen: Visualized portions of the liver, spleen, pancreas, adrenals, and gallbladder are unremarkable. Large nonobstructing left upper pole renal calculus partially visualized. Postsurgical changes of the proximal stomach. Bones and soft tissues: No osseous destructive lesions. Posttraumatic deformity of the right clavicle. Multilevel degenerative disc changes of the thoracic spine. IMPRESSION: Multiple segmental pulmonary emboli involving all 3 lobes of the right lung as described above. No CT evidence of right heart strain. Low lung volumes with subsegmental atelectasis in the dependent lower lobes. Nonobstructing left upper pole renal calculus partially visualized. Findings were discussed by telephone with Dr. Flanagan of the emergency center at 0910 hours on 08/02/2019. Signed by: Dr. Judith Pa M.D. on 08/02/2019 9:12 AM Dictated By: JUDITH PA MD 1 Transcribed By: MINA on 08/02/19911 COPY TO: MANN FLANAGAN MD D-Dimer Quantitative (PE/DVT)2019-08-02 07:31:00* Test Item Value Reference Range Interpretation Comments D-Dimer Quantitative (PE/DVT) (test code = 62723-2) 3318 0- 400 H The Triage D-Dimer Test has not been evaluated for use as sole evidence for the presence or absence of PE or DVT. As with all in vitro diagnostic tests, the te st results should be interpreted by the physician in conjunction with clinical f indings and other test results.Test results are reported in D-dimer units.[facility] SINGLE (PORTABLE)2019-08-02 07:23:00 [place] [address] Patient Name: LORENZO SPARKS MR #: [id number] : [birth year] Age/Sex: 43/M Req #: [id number] Adm Physician: Ordered by: LASHONDA WINKLER MD Report #: [id number] Location: ER Room/Bed: Procedure: [id number] DX/CHEST SINGLE (PORTABLE) Exam Date: 08/02/19 Exam Time: 0655 REPORT STATUS: Sign ed Examination: Single AP view of the chest. COMPARISON: 07/14/2015 I NDICATION: Chest pain, shortness of breath DISCUSSION: Lines/tube s: None. Lungs: Lung volumes are low with linear opacities in the bases c ompatible with subsegmental atelectasis. Pleura: There is no pleural eff usion or pneumothorax. Heart and mediastinum: The heart and the mediastinu m are unremarkable. Bones and soft tissues: No acute bony abnormalities. Degenerative changes in the thoracic spine. IMPRESSION: 1. Low hui ng volumes with subsegmental atelectasis in the lung bases. Signed by: Dr. Judith Pa M.D. on 08/02/2019 7:24 AM Dictated By: JUDITH PA MD E lectronically Signed By: JUDITH PA MD on 08/02/19723 Transcribed By: DEJA BONNER on 08/02/19723 COPY TO: LASHONDA WINKLER MD Prothrombin Iocr3401-73-03 07:18:00* Test Item Value Reference Range Interpretation Comments Prothrombin Time (test code = 5902-2) 12.8 11.9-14.5 [facility] CenterProthromb Time International Ratio 2019-08-02 07:18:00* Test Item Value Reference Range Interpretation Comments Prothromb Time International Ratio (test code = 6301-6) 0.92 Oral Anticoagulant Therapy INR Values:1. Low Intensity Therapy 1.5 - 2.02 . Moderate Intensity Therapy 2.0 - 3.03. High Intensity Therapy(1) 2.5 - 3. 54. High Intensity Therapy(2) 3.0 - 4.05. Panic Value INR > 5.0 [facility] CenterActivated Partial Thromboplast Time 2019-08-02 07:18:00* Test Item Value Reference Range Interpretation Comments Activated Partial Thromboplast Time (test code = 34683-2) 36.9 23.8-35.5 H [facility] CenterXRAY Foot series [id number] 11:46:00 EXAM: XR LEFT FOOT 3 VIEWSDATE: 08/13/2018 11:46 AM CDTINDICATION: - M72.2 Nilam ntar fascial fibromatosisCOMPARISON: NoneTECHNIQUE: AP, lateral and oblique radi ographs of the footFINDINGS: No acute fracture or malalignment is identified. T iny Achillesenthesophyte visualized. No plantar enthesopathy. No radiopaque lesi ons ormasses seen along the plantar aspect of the foot. No soft tissue abnormali ty is identified.IMPRESSION: No significant radiographic abnormality.--Read by: Case Obando MDDictated Date/time: 08/13/18 13:25Electronically Sign ed by: Case Obando MD 08/13/1813:29FINAL REPORT [facility]] CBC (INCLUDES DIFF/PLT)2018-04-03 13:26:01* Test Item Value Reference Range Interpretation Comments WBC (test code = 6690-2) 7.2 {K/CMM} 3.7-10.4 RBC; Below Low Threshold (test code = 789-8) 4.24 {M/CMM} 4.70-6.10 Hgb (test code = 718-7) 14.5 g/dl 14.0-18.0 Hct; Below Low Threshold (test code = 99825-6) 40.7 % 42.0-54 .0 MCV; Above High Threshold (test code = 787-2) 96.1 fL 80.0-94. 0 MCH; Above High Threshold (test code = 785-6) 34.3 pg 27.0-31. 0 MCHC (test code = 786-4) 35.6 g/dl 32.0-36.0 RDW (test code = 788-0) 13.7 % 11.5-14.5 Platelet (test code = 59107-4) 338 {K/CMM} 133-450 Mean Platelet Volume (test code = 77233-8) 8.4 fL 7.4-10.4 [facility]] Vtvzkuwiafgs0129-10-26 13:26:01* Test Item Value Reference Range Interpretation Comments Segmented Neutrophils (test code = 72740-1) 64.4 % 45.0-75.0 Monocytes (test code = 06574-4) 7.0 % 2.0-12.0 Lymphocytes (test code = 36068-9) 26.2 % 20.0-40.0 Eosinophils (test code = 50053-6) 1.2 % 0.0-4.0 Basophils; Above High Threshold (test code = 706-2) 1.2 % 0. 0-1.0 Segs-Bands # (test code = 04245-1) 4.7 {K/CMM} 1.5-8.1 Lymphocytes # (test code = 81169-4) 1.9 {K/CMM} 1.0-5.5 Monocytes # (test code = 07855-9) 0.5 {K/CMM} 0.0-0.8 Eosinophils # (test code = 08047-4) 0.1 {K/CMM} 0.0-0.5 Basophils # (test code = 58148-7) 0.1 {K/CMM} 0.0-0.2 [facility]] PTH, INTACT (WITHOUT CALCIUM)2018-04-03 13:26:01* Test Item Value Reference Range Interpretation Comments Parathyroid Hormone Intact (test code = 2731-8) 64.6 pg/ml 18.4-8 0.1 [facility]] CMP W/TPSJ2018-43-88 13:26:01* Test Item Value Reference Range Interpretation Comments Sodium Level (test code = 2951-2) 144 {mEq/l} 135-145 Potassium Level (test code = 2823-3) 4.3 {mEq/l} 3.5-5.1 Chloride Level (test code = 2075-0) 107 {mEq/l} 95-109 Carbon Dioxide (test code = 2027-9) 29 {mEq/l} 24-32 AGAP (test code = 55362-4) 12.3 {mEq/l} 10.0-20.0 Glucose Lvl (test code = 2345-7) 74 mg/dl 70-99 Adult reference range values reflect the clinical guidelinesof the [place] Diabetes [employer]. Creatinine Lvl (test code = 2160-0) 0.90 mg/dl 0.50-1.40 Blood Urea Nitrogen (test code = 3094-0) 13 mg/dl 7-22 BUN/Creatinine Ratio (test code = 3097-3) 14 6-25 Total Protein (test code = 2885-2) 6.8 g/dl 6.4-8.4 Albumin Lvl (test code = 1751-7) 4.1 g/dl 3.5-5.0 Globulin (test code = 24945-9) 2.7 g/dl 2.7-4.2 A/G Ratio (test code = 1759-0) 1.5 0.7-1.6 Calcium Level Total (test code = 12005-1) 8.8 mg/dl 8.5-10.5 ALT (test code = 1743-4) 26 u/l 0-65 AST (test code = 80920-6) 18 u/l 0-37 Alk Phos (test code = 1783-0) 81 u/l 39-136 Bili Total (test code = 1974-) 0.5 mg/dl 0.2-1.3 eGFR (test code = 29123-9) 104 {ML/MIN/1.7} The eGFR is calculated using the CKD-EPI formula. In most young, healthyindividuals the eGFR will be >90 mL/min/1.73m2. The eGFR declines with age. AneGFR of 60-89 may be normal in some populations, particularly the elderly, forwhom the CKD-EPI formula has not been extensively validated. Use of the eGFR isnot recommended in the following populations:Individuals with unstable creatinine concentrations, including patients and those with serious co-morbid conditions.Patients with extremes in muscle mass or diet.The data above are obtained from the National Kidney Disease Education Program(NKDEP) which additionally recommends that when the eGFR is used in patientswith extremes of body mass index for purposes of drug dosing, the eGFR shouldbe multiplied by the estimated BMI. [facility]] FOLATE, FBXZP5731-04-53 13:26:01* Test Item Value Reference Range Interpretation Comments Folate Level (test code = 2284-8) 14.7 ng/ml >=3.0 [facility]] IRON, IBDKL0059-85-60 13:26:01* Test Item Value Reference Range Interpretation Comments Iron (test code = 2498-4) 104 ug/dL 45-160 [facility]] LIPID SFOLN5630-84-92 13:26:01* Test Item Value Reference Range Interpretation Comments Chol (test code = 2093-3) 165 mg/dl <=199 Trig; Above High Threshold (test code = 2571-8) 239 mg/dl <=149 HDL Cholesterol; Below Low Threshold (test code = 2085-9) 44 mg/dl >=61 CHD Risk; Below Low Threshold (test code = 38773-8) 3.75 4. 00-7.30 LDL (test code = 76827-1) 73 mg/dl <=99 VLDL (test code = VLDL) 48 [facility]] TSH, 3RD GENERATION W/REFLEX TO FT4 2018-04-03 13:26:01* Test Item Value Reference Range Interpretation Comments TSH (test code = 38693-0) 1.360 {uIU/ml} 0.360-3.740 [facility]] VITAMIN L347009-23-02 13:26:01* Test Item Value Reference Range Interpretation Comments Vitamin B12 Level; Above High Threshold (test code = 2132-9) >2000 254-1320 [facility]] VITAMIN D, 25-HYDROXY, LC/MS/HT3383-19-25 13:26:01* Test Item Value Reference Range Interpretation Comments Vitamin D, 25-OH, Total (test code = Vitamin D, 25-OH, Total ) 17.5 ng/ml 30.0-100.0 Reference range is based on recommendations in the EndocrineSociety Clinical Practice Guideline (J Clin Endocrinol Gezkb9867;96:5095-1059) [facility]] HEMOGLOBIN O0r2802-04-11 13:26:01* Test Item Value Reference Range Interpretation Comments Hemoglobin A1c (test code = 4548-4) 5.3 % <=5.6 [facility]] VITAMIN B1, WHOLE OVIET7484-49-55 13:26:01* Test Item Value Reference Range Interpretation Comments Vitamin B1 Level (test code = Vitamin B1 Level) 154.1 nmol/L 66.5-2 00.0 This test was developed and its performance characteristicsdetermined by [employer]. It has not been cleared orapproved by the Food and Drug Administration.Performed At: [facility] [id number] Gaspar MD Ph:[phone] [facility][] Vit [id number] 13:26:01* Test Item Value Reference Range Interpretation Comments Vitamin A Level (test code = Vitamin A Level) 34.1 ug/dL 33.1-100 .0 Reference intervals for vitamin A determined from NationalHealth and Nutrition Examination Survey, 3330-3938.Individuals with vitamin A less than 20 ug/dL areconsidered vitamin A deficient and those with serumconcentrations less than 10 ug/dL are considered severelydeficient.This test was developed and its performance characteristicsdetermined by [employer]. It has not been cleared orapproved by the Food and Drug Administration.Performed At: [facility] [id number] Gaspar MD Ph:[phone] [facility][H] Vitamin E Eca2314-98-15 13:26:01* Test Item Value Reference Range Interpretation Comments Alpha-Tocopherol (test code = Alpha-Tocopherol) 8.4 mg/L 7.0-25 .1 Gamma-Tocopherol (test code = Gamma-Tocopherol) 2.6 mg/L 0.5-5. 5 Reference intervals for alpha and gamma-tocopheroldetermined from National Health and Nutrition ExaminationSurvey, 7345-4033. Individuals with alpha-tocopherol levelsless than 0.5 mg/L are considered vitamin E deficient.This test was developed and its performance characteristicsdetermined by [employer]. It has not been cleared orapproved by the Food and Drug Administration.Performed At: [facility] [id number] Gaspar MD Ph:[phone] [facility] PhysiciansCARDIAC JXVEQGQ6321-25-50 19:23:000.8[facility]annCARDIAC CQNOARV3394-19-36 19:23:96585Lyykgjhr HermannCARDIAC ENZYMES 2014-03-11 19:23:000.7[facility] HermannCHEM CPZBU1372-21-51 19:23:74629Behnfuko HermannCHEM KVNZJ6238-48-59 19:23:007.0[facility] HermannCHEM ZYUDW4357-88-44 19:23:008.5[facility] HermannCHEM KTTNG3120-59-55 19:23:93743Dvtgcnnm HermannCHEM OGKLX8364-36-04 19:23:0030[facility] HermannCHEM OZJOP2246-80-22 19:23:000.9 [facility] HermannCHEM IVRQJ5742-70-97 19:23:74461Msknpcpe HermannCHEM PANEL 2014-03-11 19:23:004.0[facility] HermannCHEM QFDJT6410-66-54 19:23:12075Baeioafk HermannCHEM AVLVG1855-37-28 19:23:008[facility] UxnkklnWBLBOGVGNS6531-97-32 19:23:38056Ndlvavmr GusxsdbDCYXFTOZEW3308-58-25 19:23:008.3[facility] PMJSMQTNVV8743-81-06 19:23:0039.1[facility] WyxnbtyNKRRQFOQYE4418-45-12 19:23:00 94.4[facility] VqjjctlOBPYDLCNFS3320-25-59 19:23:00* Test Item Value Reference Range Interpretation Comments MCH (test code = MCH) 32.3 pg 27.0-31.0 [facility] UpeuftlZFXXBMTGQL8508-13-94 19:23:0013.4[facility] HermannHEMATOLOGY 2014-03-11 19:23:004.14[facility] TmzrnrvKBNWMMCSTD2434-30-63 19:23:0034.2[facility] InynugiDWLYDPSUJZ7269-93-04 19:23:0014.1[facility] PgrpdopJAYLXIUZNV4409-43-49 19:23:007.5[facility] MswzljdOFYIQVUOQU1881-89-52 19:23:000.0[facility] EIDCWCFYQZ9206-89-74 19:23:000.1[facility] GoyvqryLLSUDTLKBX2152-27-70 19:23:001.4 [facility] ZlkgylwFGEGKGVKHW0459-52-04 19:23:000.4[facility] HermannHEMATOLOGY 2014-03-11 19:23:004.1[facility] PsumtnpNCYVSRNCVL1034-97-01 19:23:005.7[facility] WvyhgjbCIQYREIQMZ9124-86-82 19:23:000.6[facility] HuxfefjDPFWUEJVXA1291-47-74 19:23:002.8[facility] FygcyqbHAYSEITMSH1541-63-38 19:23:0054.9[facility] XXMBYNZRWA0227-86-39 19:23:0037.4[facility] PkothqrZCDTDAAGM3255-01-95 09:00:001.9 [facility] MihdmqhWLBPXJEVK8893-52-11 09:00:002.3[facility] HermannCHEMISTRY 2013-10-23 09:00:44484Sqajrbny BgkwhtbFYTYOJPFD3977-35-04 09:00:008.3[facility] TqvjmoxCKGKBDSQQ9452-85-80 09:00:0022[facility] YvkelvlAGSXPKVIF8514-92-83 09:00:31695Vyfwniel GipslioYFYRJWLJE0369-00-31 09:00:003.9[facility] WSADCHMTA9608-15-16 09:00:15835Slgpjixn LqijqpdKMOMAXZEK6134-74-91 09:00:000.9 [facility] DboopanRQVCPIWKZ8242-44-08 09:00:009[facility] MgbrcumXCBUFUNNR5295-19-46 09:00:0069[facility] NnjjfelAUDDMNBTY5430-44-99 09:00:0016.9[facility] ORWKMNGWAH9653-99-04 09:00:16881Rdshlwqt RjyhocjXRDCHMXIYG1253-60-80 09:00:008.4 [facility] UghdzooPSFZSFJFVH4821-68-02 09:00:0033.1[facility] HermannHEMATOLOGY 2013-10-23 09:00:0012.5[facility] PrwipmpIJCMLDWOMS8412-18-11 09:00:0094.5[facility] PtlkdniGJKTJMDEIZ9911-46-73 09:00:00* Test Item Value Reference Range Interpretation Comments MCH (test code = MCH) 31.3 pg 27.0-31.0 H [facility] ExcmkjpTGRYMJYHCD0964-32-98 09:00:0013.2[facility] HermannHEMATOLOGY 2013-10-23 09:00:0039.7[facility] FltgnlsERZIJAWZLJ1501-70-65 09:00:004.20[facility] HlqeohrGTENNGRELY0026-69-88 09:00:008.3[facility] TlysskyXPGLAYRVAD3970-94-07 09:00:000.1[facility] LvmdkgvQCEPFHAIYN5008-67-30 09:00:004.6[facility] FPNAJHGAEC4548-10-18 09:00:000.4[facility] FdzgwnsHREXPVAVIA0878-33-69 09:00:002.8 [facility] SgtvtsjKFCLXYJUBE3899-72-67 09:00:000.8[facility] HermannHEMATOLOGY 2013-10-23 09:00:000.7[facility] GzdowfcQAXWNWQQWE3853-89-00 09:00:0055.4[facility] ZsmmrvdVWQBURADSR4421-19-94 09:00:0010.2[facility] AjvmhkkFSYAZJZRFB7640-29-38 09:00:0033.3[facility] HpcprzmGRZQHGIFW1241-88-65 09:00:004.3[facility] LWZYVSCSE5783-55-95 09:00:002.0[facility] XjhlikbBTRRLGYNL4970-91-80 09:00:04155 [facility] KauzsdhKJWFKYATO4299-65-01 09:00:21902Rwkvjhis HermannCHEMISTRY 2013-10-22 09:00:0010[facility] ZserurpRLETHBUQO1774-37-32 09:00:0093[facility] JioeunqWXCMYAACB8068-55-01 09:00:10121Geupggvl LpeufqdHIRZIRHWN4569-71-90 09:00:004.3[facility] OqgguyuZLZEIPLKE7485-42-50 09:00:000.9[facility] QKKFFKLBU4263-89-62 09:00:008.5[facility] UkuejxuTXMPMOMXX4965-97-63 09:00:0024 [facility] AyxppoiAUAQZWDQV2917-18-74 09:00:0015.3[facility]annHEMATOLOGY 2013-10-22 09:00:000.9[facility] XofgmcsSQYZHMKJBR9134-02-51 09:00:002.6[facility] VncxvpvPZGWAOQNSO3528-00-92 09:00:006.4[facility] TiqejxgGQZRVZTVLF7127-46-46 09:00:000.2[facility] TbghyuwPMFXSLMVAR6647-65-92 09:00:000.1[facility] VJYCNNXMQM2231-54-30 09:00:009.0[facility] SvqhghkWJDZTFALOV8115-89-69 09:00:00 26.1[facility] XqviitdINLLRXFQLE8376-95-98 09:00:0064.6[facility]annHEMATOLOGY 2013-10-22 09:00:008.4[facility] EjplmqgMIQDDQPKBS2980-53-69 09:00:79280Oppflktw NwyggtuQBOLZHADQW1593-33-74 09:00:0012.8[facility] ZwriudfKPKMFCIQMS9369-93-38 09:00:0035.0[facility] HxlswljGPLUJFJZIN0596-54-20 09:00:00* Test Item Value Reference Range Interpretation Comments MCH (test code = MCH) 32.8 pg 27.0-31.0 H [facility] RvnetomRYUKBCBAJY4162-78-96 09:00:0093.9[facility]annHEMATOLOGY 2013-10-22 09:00:0038.2[facility] JiwrmznAQRWTNMSHG5913-52-57 09:00:0013.3[facility] VzkizclQKXMGAPJOF0241-78-25 09:00:004.07[facility] GsmtfiwLGYWNJPMKR1450-53-14 09:00:009.9[facility]annBLOOD BANK GVEVHPZ0743-86-36 14:35:00Negative (10/21/2013 08:35:00) [facility] PjrakdpESFIDFJEY9774-38-84 20:00:0094[facility] XurpdbzULPLKWIHH9800-88-23 20:00:47407Jdxaozno OpguhnpNXADLRLOP2305-39-65 20:00:004.0[facility] EopubwpAJABZXREP7785-20-57 20:00:007.7[facility] NFMEMBBHX6470-45-47 20:00:0071[facility] NgkrpmcDASSILQIV6000-62-09 20:00:68832 [facility] WesduamRVLPTPJYW6620-86-96 20:00:001.0[facility] HermannCHEMISTRY 2013-10-15 20:00:0010[facility] JfguqmtUZJHSNTLQ4776-95-41 20:00:0089[facility] CzgucazTMYSYGAFV1821-90-56 20:00:0097[facility] OeonuieRNJZUPQZW1024-59-76 20:00:000.5[facility] JhxqojyGYWSXDEEY8922-95-81 20:00:0026[facility] THFQEUWZP9110-63-17 20:00:004.4[facility] VbrpfpvYCQVYHXNY4012-12-34 20:00:009.1 [facility] WuqbnscEAKJOGVDJ5972-54-26 20:00:50535Nbyranxa HermannCHEMISTRY 2013-10-15 20:00:003.7[facility] BbeximeWGUICZOWY3193-95-52 20:00:0010[facility] NtlwitvVQMLKMJSW0890-66-45 20:00:0014.4[facility] FkqjsftSYQWSRVBS9359-73-73 20:00:001.1[facility] SwluujuUETVAMLXOV0301-25-49 20:00:008.3[facility] NSWLOULKAO8684-23-52 20:00:0013.0[facility] OskbudfIKUBNAZRTR7927-89-59 20:00:00 34.5[facility] PmkdlwkSVXAUSOBRA4548-57-87 20:00:46613Xtyfymlt HermannHEMATOLOGY 2013-10-15 20:00:007.9[facility] CbghlspRVZBYXDDBM6101-38-19 20:00:0093.3[facility] ItlecyyAWDFDLFAVQ4615-69-99 20:00:00* Test Item Value Reference Range Interpretation Comments MCH (test code = MCH) 32.2 pg 27.0-31.0 H [facility] GhhongtOBBYPILOBX6098-38-56 20:00:0040.8[facility]annHEMATOLOGY 2013-10-15 20:00:004.37[facility] ImhuxliOSVQJDLIRJ9969-27-06 20:00:0014.1[facility] UuemetvIZAOPLHMWV4761-83-47 20:00:000.1[facility] UjsabawETLLNWPRQD8044-29-00 20:00:000.1[facility] ZxbvbndVFLGOHXHEJ3904-65-10 20:00:001.7[facility] SKFKZCGDIN7024-67-81 20:00:003.8[facility] NygwwufQPKQYCPYPD9546-86-09 20:00:000.8 [facility] RmhkngcHHDSVVHNIK4339-65-20 20:00:000.9[facility]annHEMATOLOGY 2013-10-15 20:00:003.1[facility] IuwnsiyRHLIUFAJDM8158-51-53 20:00:0038.6[facility] JuzmdzzMMFTERCQEV4105-43-92 20:00:0047.6[facility] LqxdwkkWEWUKDSATP5606-84-11 20:00:0011.3[facility] UbbhktaOQAXDXFFTL1232-71-60 20:00:00Negative (10/15/2013 14:00:00) [facility] YhgngmxUKGOERVGIV0479-19-69 20:00:00Negative (10/15/2013 14:00:00) [facility] HbagducJIYLQKEUYW6987-44-67 20:00:00Negative *NA*(10/15/2013 14:00:00) [facility] JbzxcdnLDRMMBVDVM6324-98-31 20:00:00Negative (10/15/2013 14:00:00) [facility] WwjnfehLVEXEBQQFX6900-00-09 20:00:00Clear (10/15/2013 14:00:00) [facility] FymjvhhMLKOBUOUSE3392-81-52 20:00:00Yellow *NA*(10/15/2013 14:00:00) [facility] MprgazjZYSXRAUQMP8893-39-63 20:00:006.0[facility] EWNLIFRBPH4501-06-07 20:00:001.016[facility]
--- NOTE | 2020-04-19 19:09 | NUR ---
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
--- NOTE | 2020-04-19 19:27 | Emergency Department Note ---
History of Present Illnes History of Present Illness Chief Complaint: General Medicine Complaints History of Present Illness This is a 44 year old male PMH of DVT , presents ot the ED for tender lesion of his right lower leg. Denies f/c/n/v . Historian: Patient Arrival Mode: Car Past Medical/Family History Physician Review I have reviewed the patient's past medical and family history. Any updates have been documented here. 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 Physical Exam Related Data Allergies: Coded Allergies: No Known Allergies (Unverified , 07/14/15) Triage Vital Signs Vital Signs Date Time Temp Pulse Resp B/P (MAP) Pulse Ox O2 Delivery O2 Flow Rate FiO2 04/19/20 18:50 98.5 70 16 138/72 100 Physical Exam CONSTITUTIONAL Constitutional: well-developed, well-nourished HENT HENT: normocephalic, atraumatic, oropharynx clear/moist, nose normal HENT L/R: left ext ear normal, right ext ear normal EYES Eyes: PERRL, conjunctivae normal NECK Neck: ROM normal PULMONARY Pulmonary: effort normal, breath sounds normal CARDIOVASCULAR Cardiovascular: regular rhythm, heart sounds normal, capillary refill normal, normal rate GASTROINTESTINAL Abdominal: soft, nontender, bowel sounds normal GENITOURINARY Genitourinary: exam deferred SKIN Skin: erythema (r inner ankle well circumscribed lesion) MUSCULOSKELETAL Musculoskeletal: ROM normal NEUROLOGICAL Neurological: alert, oriented x 3, no gross motor or sensory deficits PSYCHOLOGICAL Psychological: mood/affect normal, judgement normal Results Imaging Imaging results reviewed: Yes Imaging Comments RLE Venous Duplex : NEG RLE arterial Duplex : triphasic flow Assessment & Plan Assessment & Plan Final Impression: (1) Cellulitis of right ankle Assessment & Plan DVT and arterial Duplex of the RLE negative for blood clots and with triphasic flow. Plan to discharge patient with Rx Keflex, bactrim, and tylenol 33 Depart Disposition: HOME, SELF-CARE Last Vital Signs Date Time Temp Pulse Resp B/P (MAP) Pulse Ox O2 Delivery O2 Flow Rate FiO2 04/19/20 18:50 98.5 70 16 138/72 100 Home Meds Reported Medications Rivaroxaban (XARELTO) 20 Mg Tablet, 15 MG PO BID for 20 Days, #40 08/05/19 Nitroglycerin (NITROSTAT) 0.4 Mg Tab.subl, 0.4 MG SL Q5MIN PRN for CHEST PAIN 07/14/15 Pantoprazole Sodium* (PROTONIX) 40 Mg Tablet., 40 MG PO DAILY, TAB 07/14/15 ASH DURAND DO Apr 19, 2020 19:26
== END 2020-04-19 22:55 | disposition home or self-care (01) ==
LOC: ER 18:15
DX: L03.115 Cellulitis of right lower limb (principal); W22.09XA Striking against other stationary object, initial encounter; K21.9 Gastro-esophageal reflux disease without esophagitis; Z86.718 Personal history of other venous thrombosis and embolism; Z98.84 Bariatric surgery status
CPT/HCPCS: 93925; 93970; 99283

== ENCOUNTER 2024-12-01 09:15 | Inpatient (IN) | payer BC ==
[2024-12-01] VITALS (8 sets, daily range): BP systolic 122–135; BP diastolic 67–72; PULSE 78–99; RESP 18–20; TEMP 98.6–101.4; O2SAT 97
[~2024-12-01] VITALS: Ht 172.7 cm; Wt 88.5 kg
[~2024-12-01 09:15] MED LIST changes: +AUGMENTIN 500-1 EACH PO
[2024-12-01 10:15] LABS: BASOPHILS # (AUTO) 0.1 (0.0-0.1); BASOPHILS % 0.4 % (0.0-1.0); EOSINOPHILS % 0.1 % (0.0-6.0); HEMATOCRIT 40.6 % (38.2-49.6); MEAN CORPUSCULAR HEMOGLOBIN 29.9 pg (28-32); MEAN CORPUSCULAR HGB CONC 29.6 g/dL (31-35); MONOCYTES # (AUTO) 0.8 (0.2-0.8); MONOCYTES % 5.4 % (4.4-11.3); NEUTROPHILS # (AUTO) 11.3 (2.1-6.9); NEUTROPHILS % 79.7 % (38.7-80.0); PLATELET COUNT 342 x10e3/uL (140-360); RED BLOOD COUNT 4.02 x10e6/uL (4.3-5.7); RED CELL DISTRIBUTION WIDTH 13.3 % (11.7-14.4)
[2024-12-01] MEDS: ONDANSETRON HCL INJ 2MG/ML 2ML 2 MG/ML VIAL IV STA (10:19)
[2024-12-01] MEDS: Morphine 4mg INJECTION 4 MG/ML INJ IV STA (10:20)
[2024-12-01] MEDS: KETOROLAC TROMETHAMINE 30 MG/ML VIAL IV STA (10:20)
[2024-12-01] MEDS: SODIUM CHLORIDE 0.9% 1000ML 1,000 ML IV STA (10:21)
[2024-12-01 10:34] LABS: ALBUMIN 3.6 g/dL (3.5-5.0); ALBUMIN/GLOBULIN RATIO 1.1 (0.8-2.0); ANION GAP 15.1 mmol/L (8-16); BILIRUBIN,TOTAL 0.9 mg/dL (0.2-1.2); CALCIUM 8.9 mg/dL (8.4-10.2); CREATININE, SERUM 1.19 mg/dL (0.72-1.25); MAGNESIUM 1.9 MG/DL (1.3-2.1); POTASSIUM 4.1 mmol/L (3.5-5.1); TOTAL PROTEIN 6.9 g/dL (6.5-8.1)
[2024-12-01 10:44] LABS: INR 0.96; PROTHROMBIN TIME 13.4 seconds (11.9-14.5)
[2024-12-01 10:45] LABS: PARTIAL THROMBOPLASTIN TIME 29.9 seconds (23.8-35.5)
[2024-12-01 11:12] LABS: BILIRUBIN,URINE NEGATIVE (NEGATIVE); CLARITY,URINE CLOUDY (CLEAR); COLOR,URINE YELLOW (YELLOW); GLUCOSE, URINE NEGATIVE (NEGATIVE); KETONES,URINE NEGATIVE (NEGATIVE); LEUKOCYTE ESTERASE ,URINE NEGATIVE (NEGATIVE); NITRITE,URINE NEGATIVE (NEGATIVE); PH,URINE 7.5 (5 - 7); PROTEIN,URINE DIPSTICK 1+ (NEGATIVE); URINE UROBILINOGEN 1 mg/dL (0.2 - 1)
[2024-12-01 11:34] LABS: BACTERIA,URINE RARE /HPF; RBC,URINE 0-5 /HPF (0-5); WBC,URINE (MAN) 0-5 /HPF (0-5)
[2024-12-01] MEDS ORDERED: IOPAMIDOL 370 MG/ML 100 ML INFUS..BTL INJ ONE (11:53)
[2024-12-01] MEDS: HYDROMORPHONE 1MG/1ML INJ IV PRN (14:02)
[2024-12-01] MEDS: SODIUM CHLORIDE 0.9% 1000ML 1,000 ML IV SCH (14:03)
[2024-12-01] MEDS: METRONIDAZOLE 500MG/NS 100ML 100 ML IV SCH (14:03)
[2024-12-01] MEDS: ACETAMINOPHEN 1000 MG/100 ML IV PRN (17:54)
[2024-12-01] MEDS: ONDANSETRON HCL INJ 2MG/ML 2ML 2 MG/ML VIAL IV PRN (22:18)
[2024-12-02] VITALS (8 sets, daily range): BP systolic 120–140; BP diastolic 66–78; PULSE 72–84; RESP 18–19; TEMP 98.4–98.6; O2SAT 95–99
[2024-12-02 00:25] LABS: BASOPHILS # (AUTO) 0.1 (0.0-0.1); BASOPHILS % 0.5 % (0.0-1.0); EOSINOPHILS % 0.3 % (0.0-6.0); HEMATOCRIT 36.9 % (38.2-49.6); HEMOGLOBIN 10.9 g/dL (14.0-18.0); LYMPHOCYTES # (AUTO) 1.4 (1.0-3.2); LYMPHOCYTES % 9.1 % (18.0-39.1); MEAN CORPUSCULAR HEMOGLOBIN 29.9 pg (28-32); MEAN CORPUSCULAR HGB CONC 29.5 g/dL (31-35); MEAN CORPUSCULAR VOLUME 101.4 fL (81-99); MONOCYTES % 6.6 % (4.4-11.3); NEUTROPHILS # (AUTO) 12.8 (2.1-6.9); NEUTROPHILS % 82.9 % (38.7-80.0); PLATELET COUNT 254 x10e3/uL (140-360); RED BLOOD COUNT 3.64 x10e6/uL (4.3-5.7); RED CELL DISTRIBUTION WIDTH 13.5 % (11.7-14.4); WHITE BLOOD COUNT 15.44 x10e3/uL (4.8-10.8)
[2024-12-02 06:28] LABS: BASOPHILS % 0.3 % (0.0-1.0); EOSINOPHILS # (AUTO) 0.1 (0.0-0.4); EOSINOPHILS % 0.4 % (0.0-6.0); HEMATOCRIT 35.8 % (38.2-49.6); HEMOGLOBIN 10.5 g/dL (14.0-18.0); LYMPHOCYTES # (AUTO) 1.1 (1.0-3.2); LYMPHOCYTES % 8.8 % (18.0-39.1); MEAN CORPUSCULAR HEMOGLOBIN 29.9 pg (28-32); MEAN CORPUSCULAR HGB CONC 29.3 g/dL (31-35); MONOCYTES % 7.8 % (4.4-11.3); NEUTROPHILS # (AUTO) 10.1 (2.1-6.9); NEUTROPHILS % 82.3 % (38.7-80.0); PLATELET COUNT 238 x10e3/uL (140-360); RED BLOOD COUNT 3.51 x10e6/uL (4.3-5.7); RED CELL DISTRIBUTION WIDTH 13.7 % (11.7-14.4); WHITE BLOOD COUNT 12.29 x10e3/uL (4.8-10.8)
[2024-12-02 06:55] LABS: ALBUMIN 2.9 g/dL (3.5-5.0); ANION GAP 13.3 mmol/L (8-16); BILIRUBIN,TOTAL 1.2 mg/dL (0.2-1.2); CALCIUM 8.6 mg/dL (8.4-10.2); CREATININE, SERUM 0.91 mg/dL (0.72-1.25); TOTAL PROTEIN 5.8 g/dL (6.5-8.1)
[2024-12-02 06:56] LABS: POTASSIUM 3.3 mmol/L (3.5-5.1)
[2024-12-02] MEDS: POTASSIUM CHLORIDE 10MEQ/100ML 100 ML IV SCH (18:12)
[2024-12-02] MEDS: KETOROLAC TROMETHAMINE 30 MG/ML VIAL IV PRN (18:13)
[2024-12-02] MEDS: METOCLOPRAMIDE HCL 10 MG/2ML VIAL IV SCH (18:13)
[2024-12-02] MEDS ORDERED: SODIUM CHLORIDE 0.9% 250ML 250 ML ONE (18:17)
[2024-12-03] VITALS (8 sets, daily range): BP systolic 123–142; BP diastolic 72–82; PULSE 63–77; RESP 16–19; TEMP 98.1–98.6; O2SAT 96–100
[2024-12-03] MEDS: ACETAMINOPHEN 325 MG TAB PO PRN (00:16)
[2024-12-04] VITALS: BP 130/74; PULSE 65; RESP 19; TEMP 98.1; O2SAT 96
[2024-12-04 06:09] VITALS: BP 132/81; PULSE 60; RESP 18; TEMP 98.8; O2SAT 98
[2024-12-04 06:32] LABS: BASOPHILS % 0.2 % (0.0-1.0); EOSINOPHILS # (AUTO) 0.1 (0.0-0.4); EOSINOPHILS % 0.9 % (0.0-6.0); HEMATOCRIT 29.3 % (38.2-49.6); HEMOGLOBIN 9.5 g/dL (14.0-18.0); LYMPHOCYTES # (AUTO) 0.8 (1.0-3.2); MEAN CORPUSCULAR HEMOGLOBIN 30.3 pg (28-32); MEAN CORPUSCULAR HGB CONC 32.4 g/dL (31-35); MEAN CORPUSCULAR VOLUME 93.3 fL (81-99); MONOCYTES # (AUTO) 0.6 (0.2-0.8); MONOCYTES % 7.4 % (4.4-11.3); NEUTROPHILS # (AUTO) 6.7 (2.1-6.9); NEUTROPHILS % 81.1 % (38.7-80.0); PLATELET COUNT 284 x10e3/uL (140-360); RED BLOOD COUNT 3.14 x10e6/uL (4.3-5.7); RED CELL DISTRIBUTION WIDTH 13.4 % (11.7-14.4); WHITE BLOOD COUNT 8.22 x10e3/uL (4.8-10.8)
[2024-12-04 07:03] LABS: ALBUMIN 2.6 g/dL (3.5-5.0); ALBUMIN/GLOBULIN RATIO 0.9 (0.8-2.0); ANION GAP 14.2 mmol/L (8-16); BILIRUBIN,TOTAL 0.4 mg/dL (0.2-1.2); CALCIUM 8.3 mg/dL (8.4-10.2); CREATININE, SERUM 0.79 mg/dL (0.72-1.25); POTASSIUM 3.2 mmol/L (3.5-5.1); TOTAL PROTEIN 5.6 g/dL (6.5-8.1)
[2024-12-04 08:00] VITALS: BP 132/81; PULSE 60; RESP 18; TEMP 98.8; O2SAT 98
[2024-12-04 08:44] VITALS: BP 137/77; PULSE 62; RESP 18; TEMP 97.5; O2SAT 97
[2024-12-04 11:53] VITALS: BP 142/86; PULSE 72; RESP 18; TEMP 97.9; O2SAT 98
[2024-12-04 15:18] VITALS: BP 138/76; PULSE 63; RESP 18; TEMP 97; O2SAT 98
== END 2024-12-04 19:10 | disposition home or self-care (01) | DRG 392 ==
LOC: ER 09:19 → ERHOLD 13:34 → MED/SURG3 15:50
PROVIDERS: ADMIT Family Medicine; ATTEND Family Medicine
DX: K57.20 Diverticulitis of large intestine with perforation and abscess without bleeding (principal); E87.6 Hypokalemia; K21.9 Gastro-esophageal reflux disease without esophagitis; K80.20 Calculus of gallbladder without cholecystitis without obstruction; Z98.84 Bariatric surgery status; Z86.711 Personal history of pulmonary embolism; Z86.718 Personal history of other venous thrombosis and embolism
CPT/HCPCS: 36415; 74177; 80053; 81001; 82948; 83690; 83735; 84484; 85025; 85610; 85730; 99284; J1171; J1885; J2270; J2405; J2470; J2543; J2765; J3480; J7030; J7050; Q9967

== ENCOUNTER 2025-09-05 19:11 | Emergency (ER) | payer BC ==
[~2025-09-05] VITALS: Ht 172.7 cm; Wt 87.1 kg
[2025-09-05 19:58] LABS: BASOPHILS % 0.8 % (0.0-1.0); EOSINOPHILS % 0.5 % (0.0-6.0); LYMPHOCYTES % 24.9 % (18.0-39.1); MONOCYTES % 5.3 % (4.4-11.3); NEUTROPHILS % 68.3 % (38.7-80.0); RED CELL DISTRIBUTION WIDTH 15.0 % (11.7-14.4)
[2025-09-05 20:02] LABS: INR 0.98
[2025-09-05 20:11] LABS: EST GLOMERULAR FILTRATION RATE 81.0 ML/MIN (>=60)
[2025-09-05] MEDS: SODIUM CHLORIDE 0.9% 1000ML 1,000 ML IV STA (20:11)
[2025-09-05] MEDS: ASPIRIN 81 MG CHEW TAB PO ONE (20:12)
[2025-09-05] MEDS ORDERED: IOPAMIDOL 370 MG/ML 100 ML INFUS..BTL INJ ONE (21:01)
[2025-09-05] MEDS ORDERED: SODIUM CHLORIDE 0.9% 100 ML ONE (21:01)
[2025-09-05] MEDS: ASPIRIN 325 MG TAB PO STA (23:53)
[2025-09-05 23:54] VITALS: PULSE 60; RESP 18; TEMP 98.3; O2SAT 99
== END 2025-09-06 00:57 | disposition other institution (70) ==
LOC: ER 19:19
DX: R29.810 Facial weakness (principal); R47.1 Dysarthria and anarthria; R42 Dizziness and giddiness; Z98.84 Bariatric surgery status
CPT/HCPCS: 36415; 70450; 70496; 70498; 71045; 80053; 82550; 83690; 83880; 84484; 85025; 85610; 93005; 99284; J7030; J7050; Q9967